=== PATIENT | female | born 1950 | race Caucasian/White ===

== ENCOUNTER 2016-07-27 17:19 | Inpatient (IN) | payer OTHER ==
[~2016-07-27] VITALS: Ht 157.4 cm; Wt 69.1 kg
--- NOTE | ~2016-07-27 | ST ---
[place], [place] EXERCISE STRESS TEST REPORT NAME: DANO RODARTE [facility] #: [id number] UNIT #: [id number] ROOM: 416 DOCTOR: GATO MORA MD BIRTHDATE: [birth year] DOS: 07/28/2016 PHARMACOLOGIC STRESS TEST Study was done and is being dictated on 07/28/2016. INDICATIONS: Chest pain. PROCEDURE: The patient was given a rapid infusion of regadenoson 0.4 mg intravenously followed by a saline flush. She developed dyspnea, nausea, and headache with the infusion. Her resting heart rate of 71 sherry to 106. The resting blood pressure of 148/80 fell to 136/68. Her electrocardiogram showed sinus rhythm with nonspecific T-wave flattening. With the infusion, she had a normal tachycardic response. No diagnostic ST or T-wave changes occurred. Forty seconds after the infusion of regadenoson, she was given radionuclide intravenously. The patient had significant symptoms with the infusion of regadenoson and therefore was given aminophylline 75 mg intravenously to help relieve her symptoms with good effect. IMPRESSION: 1. Well tolerated infusion of regadenoson. 2. Radionuclide administered. Please see the separate imaging report for details of the patient's stress test results. GATO MORA MD CM:STRESS:EXERCISE STRESS TEST REPORT 1102 0011 GATO MORA MD
[~2016-07-27 17:19] MED LIST: ALBUTEROL0.09 MG/A2 IH; ASPIRIN ADULT L81 M1 PO; ATIVAN0.5 MG PO; ATIVAN1 MG PO; B121000 MCG/1 IM; BACTRIM DS 8001 TA1 PO; BACTRIM DS 8001 TAB PO; BISOPROLOL10 MG PO; CILOXAN 10 ML10 ML OP; DITROPAN XL15 M1 PO; FAMILY PHARMAC0.4 MG PO; FENOFIBRATE MI134 MG PO; FOLIC ACID1 MG PO; GLIPIZIDE5 MG PO; HYDR25T PO; HYDROXYZINE PAM50 MG PO; IMDUR SA60 M1 PO; LANSOPRAZOLE30 MG PO; LEVOTHYROXIN0.075 MG PO; MEDROL DOSEPAK4 MG PO; NAPROSYN500 MG PO; NITROSTAT0.4 MG SL; NORVASC10 MG PO; OYSTER SHELL C500 M2 PO; OYSTER SHELL CA1 GRA; PAROXETINE HCL40 MG PO; PERCOCET 325 MG1 TA1 PO; PERCOCET 325 MG1 TA2 PO; POTASSIUM CHLO20 ME3 PO; PREDNISONE10 MG PO; PROTONIX40 MG PO; SIMVASTATIN10 MG PO; VICODIN ES 7501 TA1 PO; VITAMIN D2400 IU PO; ZANTAC PO; ZESTRIL40 MG PO
[2016-07-27 17:33] VITALS: BP 198/102
[2016-07-27 18:12] LABS: BASO # 0.1 10*3/uL (0.0-0.1); BASO % 0.7 % (0.0-1.0); EOS # 0.1 10*3/uL (0.0-0.4); EOS % 1.6 % (1.0-4.0); HEMATOCRIT 46.1 % (37.0-47.0); HEMOGLOBIN 14.3 g/dl (12.0-16.0); LYMPH # 3.3 10*3/uL (1.3-4.4); LYMPH % 47.8 % (27.0-41.0); MEAN CELL VOLUME 88.1 fl (81.0-99.0); MEAN CORPUSCULAR HGB 27.3 pg (27.0-31.0); MEAN PLATELET VOLUME 10.5 fl (9.6-12.3); MONO # 0.6 10*3/uL (0.1-1.0); MONO % 8.9 % (3.0-9.0); NEUT # 2.8 10*3/uL (2.3-7.9); NEUT % 40.7 % (47.0-73.0); PLATELET COUNT AUTOMATED 310 10*3/uL (130-400); RED BLOOD COUNT 5.23 10*6/uL (4.10-5.10); RED CELL DISTRI WIDTH 13.6 % (0-14.5); WHITE BLOOD COUNT 6.8 10*3/uL (4.8-10.8)
[2016-07-27 18:32] LABS: BUN 8 mg/dl (7-24); CARBON DIOXIDE 27 mmol/L (21-32); CHLORIDE 106 mmol/L (98-107); EST GLOM FILT AFRICAN AMERICAN > 60 ml/min; GLUCOSE 138 mg/dL (65-99); POTASSIUM 3.3 mmol/L (3.5-5.1); SODIUM 143 mmol/L (136-145)
[2016-07-27 18:33] LABS: TROPONIN I < 0.015 ng/ml (<0.5)
[2016-07-27] MEDS ORDERED: LOPID600 M1 PO (18:54)
[2016-07-27] MEDS ORDERED: HYDROCHLOROTHIA25 M1 PO (18:55)
[2016-07-27 18:56] VITALS: BP 173/103
[2016-07-27 19:28] VITALS: BP 160/98
[2016-07-27 20:23] VITALS: BP 153/95
[2016-07-27 21:00] VITALS: BP 142/96
[2016-07-27] MEDS ORDERED: BUSPIRONE10 MG PO (21:04)
[2016-07-27] MEDS ORDERED: PROAIR HFA8.5 GM INH (21:07)
[2016-07-28] VITALS: BP 146/90
[2016-07-28 06:22] LABS: BASO # 0.1 10*3/uL (0.0-0.1); BASO % 0.6 % (0.0-1.0); EOS # 0.2 10*3/uL (0.0-0.4); HEMATOCRIT 44.9 % (37.0-47.0); HEMOGLOBIN 13.6 g/dl (12.0-16.0); LYMPH % 50.4 % (27.0-41.0); MEAN CELL VOLUME 88.6 fl (81.0-99.0); MEAN CORPUSCULAR HGB 26.8 pg (27.0-31.0); MEAN CORPUSCULAR HGB CONC 30.3 g/dl (33.0-37.0); MEAN PLATELET VOLUME 10.8 fl (9.6-12.3); MONO # 0.7 10*3/uL (0.1-1.0); MONO % 8.4 % (3.0-9.0); NEUT # 3.1 10*3/uL (2.3-7.9); NEUT % 38.3 % (47.0-73.0); PLATELET COUNT AUTOMATED 283 10*3/uL (130-400); RED BLOOD COUNT 5.07 10*6/uL (4.10-5.10); RED CELL DISTRI WIDTH 13.7 % (0-14.5)
[2016-07-28 07:03] LABS: INTERNATIONAL NORM RATIO 0.9 (2.0-3.5); PROTHROMBIN TIME 9.8 SECONDS (9.0-12.4)
[2016-07-28 07:08] LABS: ALBUMIN 3.1 gm/dl (3.1-4.5); ALKALINE PHOSPHATASE 91 U/L (45-117); BILIRUBIN, TOTAL 0.2 mg/dl (0.2-1.0); BUN 8 mg/dl (7-24); CARBON DIOXIDE 29 mmol/L (21-32); CHLORIDE 110 mmol/L (98-107); CHOLESTEROL 220 mg/dL (<200); EST GLOM FILT AFRICAN AMERICAN > 60 ml/min; FREE T4 1.15 ng/dl (0.76-1.46); GLUCOSE 120 mg/dL (65-99); HDL CHOLESTEROL 29 mg/dl (40-60); LDL CHOLESTEROL 119 mg/dL (9-159); MAGNESIUM 1.9 mg/dL (1.5-2.1); POTASSIUM 3.9 mmol/L (3.5-5.1); SGOT/AST 12 IU/L (3-35); SGPT/ALT 13 U/L (12-78); SODIUM 147 mmol/L (136-145); THYROID STIM HORMONE (HS) 0.214 uIU/ml (0.358-4.75); TOTAL PROTEIN 7.2 gm/dL (6.4-8.2); TRIGLYCERIDES 362 mg/dl (<150); VLDL CHOLESTEROL 72 mg/dL (6-40)
[2016-07-28 07:32] LABS: FOLIC ACID > 24.00 ng/mL (>5.38)
[2016-07-28 07:59] LABS: BILIRUBIN NEGATIVE (NEGATIVE); BLOOD NEGATIVE (NEGATIVE); CLARITY SL CLOUDY (CLEAR); COLOR YELLOW (YELLOW); GLUCOSE NEGATIVE (NEGATIVE); KETONE NEGATIVE (NEGATIVE); LEUKO ESTERASE TRACE (NEGATIVE); NITRITE NEGATIVE (NEGATIVE); PROTEIN NEGATIVE (NEGATIVE); UROBILINOGEN 0.2 E.U./dl (0.2-1.0)
[2016-07-28 08:00] VITALS: BP 180/98
[2016-07-28 08:59] LABS: WBC 31-40 wbc/hpf (0-5)
[2016-07-28 09:00] LABS: BACTERIA 2+; YEAST 1+
[2016-07-28 09:10] VITALS: BP 150/74
[2016-07-28] MEDS ORDERED: ATORVASTATIN CA40 M1 PO (14:56)
[2016-07-28] MEDS ORDERED: BISOPROLOL FM5 MG PO (14:56)
[2016-07-28] MEDS ORDERED: GABAPENTIN100 M2 PO (14:56)
[2016-07-28] MEDS ORDERED: HYDROCHLOROTHIA25 M1 PO (14:56)
[2016-07-28 16:00] VITALS: BP 159/70
[2016-08-02] MEDS ORDERED: IMDUR SA30 MG PO (18:52)
[2016-08-02] MEDS ORDERED: NITROSTAT0.4 MG SL (18:53)
[2016-08-02] MEDS ORDERED: METOPROLOL SUCC25 M2 PO (18:53)
[2016-08-02] MEDS ORDERED: ZANTAC 7575 M1 PO (18:54)
[2016-08-05] MEDS ORDERED: TOPROL XL50 M1 PO (09:59)
[2016-08-05] MEDS ORDERED: NORVASC10 MG PO (09:59)
[2016-08-05] MEDS ORDERED: FLAGYL500 MG PO (10:04)
[2016-08-05] MEDS ORDERED: CIPRO500 MG PO (10:04)
[2016-08-05] MEDS ORDERED: NORCO 5-325 TA1 EACH PO (10:07)
[2016-08-05] MEDS ORDERED: Zofran4 MG PO (10:07)
[2016-09-07] MEDS ORDERED: ZANTAC 150150 MG PO (15:12)
[2016-09-12] MEDS ORDERED: BACTRIM DS 8001 TA1 PO (10:48)
[2016-09-12] MEDS ORDERED: D-1000 185 MG-11 TAB PO (10:48)
[2016-09-12] MEDS ORDERED: Zofran4 MG PO (10:48)
[2016-09-12] MEDS ORDERED: TRAMADOL HCL50 MG PO (11:46)
[2016-09-12] MEDS ORDERED: VISTARIL25 M2 PO (11:46)
== END 2016-07-28 16:29 | disposition home or self-care (01) | DRG 392 ==
LOC: ED 17:19 → EDHOLD 18:56 → 4E 18:56
PROVIDERS: Emergency Medicine; Student in an Organized Health Care Education/Training Program
DX: K21.9 Gastro-esophageal reflux disease without esophagitis (principal); I67.4 Hypertensive encephalopathy; R65.10 Systemic inflammatory response syndrome (SIRS) of non-infectious origin without acute organ dysfunction; E11.40 Type 2 diabetes mellitus with diabetic neuropathy, unspecified; J44.9 Chronic obstructive pulmonary disease, unspecified; I16.1 Hypertensive emergency; F41.9 Anxiety disorder, unspecified; G89.29 Other chronic pain; E11.65 Type 2 diabetes mellitus with hyperglycemia; E89.0 Postprocedural hypothyroidism; I10 Essential (primary) hypertension; E87.6 Hypokalemia; E78.5 Hyperlipidemia, unspecified; F32.9 Major depressive disorder, single episode, unspecified; G47.33 Obstructive sleep apnea (adult) (pediatric); Z87.440 Personal history of urinary (tract) infections; Z90.49 Acquired absence of other specified parts of digestive tract; Z90.710 Acquired absence of both cervix and uterus; Z82.49 Family history of ischemic heart disease and other diseases of the circulatory system; Z88.1 Allergy status to other antibiotic agents; Z79.899 Other long term (current) drug therapy

== ENCOUNTER 2016-07-30 14:19 | Inpatient (IN) | payer OTHER ==
[2016-07-30] VITALS (7 sets, daily range): BP systolic 143–190; BP diastolic 80–110
[~2016-07-30] VITALS: Ht 157.4 cm; Wt 69.1 kg
--- NOTE | ~2016-07-30 | CON ---
[place], [place] REPORT OF CONSULTATION NAME: DANO RODARTE [facility] #: [id number] UNIT #: [id number] ROOM: 402 DOCTOR: ALYSON GARZON MD BIRTHDATE: [birth year] DOS: 07/31/2016 CARDIOLOGY CONSULT CONSULTING PHYSICIAN: Dr. Bradford. REASON FOR CONSULTATION: Chest pain. CLINICAL HISTORY: The patient is a 66-year-old patient with history of hypertension, diabetes, dyslipidemia, came to the Emergency Room with chest pain. Evidently, she was discharged a few days ago from the hospital after she was admitted with chest pain. The patient underwent a stress test which was unremarkable and she complained of intermittent chest pains, midsternal area. Yesterday, her blood pressure was high at home and having some occasional dizziness and headache. She complained of some intermittent chest tightness in the left side of the chest and radiated towards the midsternal area, mild to moderate in severity. The patient also had some blurred vision, headache and also some left arm weakness briefly. Her chest pain was more or less constant and she came to the Emergency Room and it was gradually resolved in the Emergency Room after she was treated in the Emergency Room. She is compliant with her medications as prescribed. Denies any shortness of breath, palpitations. No PND, no orthopnea. No edema. She does smoke about a pack a day of cigarettes. She again had chest pain in the midsternal area. She has 1 episode at rest and also 1 episode with activity. REVIEW OF SYSTEMS: Review of the 8-system negative except as mentioned above. REVIEW OF SYSTEMS: Positive for recurrent lower abdominal pain, but no nausea, no diarrhea. This is a chronic complaint. No fever and chills. No nausea, vomiting. No syncopal attacks. No diarrhea or constipation. PAST MEDICAL HISTORY: 1. Hypertension. 2. Diabetes type 2. 3. Obesity. 4. Acid reflux. 5. Obstructive sleep apnea, on home oxygen. 6. Chronic pain, mostly lower abdominal pain. 7. COPD. 8. Degenerative disease of the lumbar spine. 9. Depression. 10. Diverticulosis. 11. Anxiety. 12. Hypothyroidism. 13. Dyslipidemia. PAST SURGICAL HISTORY: History of cholecystectomy, hernia repair, hysterectomy, dissection of the large bowel, thyroidectomy, and appendicectomy. SOCIAL HISTORY: The patient does not drink or use illicit drugs, does smoke [place], [place] REPORT OF CONSULTATION NAME: DANO RODARTE UNIT #: [id number] ROOM: 402 DOCTOR: ALYSON GARZON MD BIRTHDATE: [birth year] about a pack a day. ALLERGIES: The patient is allergic to TRAZODONE and NAPROXEN. FAMILY HISTORY: Mother from unknown causes, had history of hypertension, diabetes. Father , cause myocardial infarction. HOME MEDICATIONS: Reviewed. PHYSICAL EXAMINATION: VITAL SIGNS: Blood pressure 150/70, pulse 72, respiratory rate 16. Weight 69.1 kilos, BMI 27.9. GENERAL: Alert, comfortable, in no acute distress. Denies any chest pain. She is complaining of some occasional lower abdominal pain. HEAD AND NECK: Pupils are round and equal. No jaundice. Tongue was moist and pharynx was clear. NECK: Supple, no distended neck veins, no carotid bruit. CHEST: Chest wall symmetrical. Mild tenderness in the upper sternal area. No palpable thrills. Grade 1/6 soft systolic murmur. LUNGS: Few scattered rhonchi, but no rales. Good air entry bilaterally. ABDOMEN: Benign. Mild deep tenderness in the lower abdominal area. Bowel sounds positive. No palpable masses. No pulsatile abdominal aorta. EXTREMITIES: Showed trace edema. Distal pulses are palpable. SKIN: Warm and dry. No cyanosis, no clubbing. NEUROLOGIC: The patient is alert, oriented. No focal neurologic deficit. RECTAL: Deferred. GENITOURINARY: Deferred. MUSCULOSKELETAL: No joint tenderness or swelling. PSYCHIATRIC: The patient is alert with good mood and affect. REVIEW OF THE DIAGNOSTIC TESTS: EKG showed sinus rhythm with anteroseptal Q-waves. Cardiac enzymes unremarkable. CBC, chemistry reviewed. IMPRESSION: 1. Chest pain, myocardial infarction ruled out. 2. Accelerated hypertension, currently stable. 3. Tobacco smoking. 4. Dyslipidemia. 5. Diabetes type 2. 6. Obstructive sleep apnea. 7. Chronic abdominal pain. RECOMMENDATIONS: 1. Continue current medications and monitor her heart rate and blood pressure. 2. Give her aspirin 325 mg once daily. 3. Due to her recurrent chest pains and multiple coronary disease risk factors, I would recommend cardiac catheterization. She had a nonischemic stress test recently. 4. Risks and complications of the cardiac catheterization, angioplasty, stent and possible bypass surgery were discussed and all questions were answered and [place], [place] REPORT OF CONSULTATION [facility]: [facility] [id number] UNIT #: [id number] ROOM: 402 DOCTOR: DURAN GIANG,ALYSON BIRTHDATE: [birth year] she is agreeable to proceed with cardiac catheterization. 5. Aggressive risk factor modification for diet, exercise, and weight loss as well as to quit smoking discussed. 6. Further recommendations based on her cardiac catheterization, especially discuss with her family physician regarding her chronic abdominal pain management. Thank you, Dr. Bradford for asking us to evaluate this patient and we will follow the case along with you. ALYSON GARZON MD CM:CONSTR:REPORT OF CONSULTATION 2319 08/01/16 0830 interface
[~2016-07-30 14:19] MED LIST changes: +ATORVASTATIN CA40 M1 PO; +BISOPROLOL FM5 MG PO; +BUSPIRONE10 MG PO; +GABAPENTIN100 M2 PO; +HYDROCHLOROTHIA25 M1 PO; +LOPID600 M1 PO; +PROAIR HFA8.5 GM INH
[2016-07-30 14:54] LABS: BASO # 0.1 10*3/uL (0.0-0.1); BASO % 0.7 % (0.0-1.0); EOS # 0.2 10*3/uL (0.0-0.4); EOS % 2.1 % (1.0-4.0); HEMATOCRIT 48.2 % (37.0-47.0); HEMOGLOBIN 15.1 g/dl (12.0-16.0); LYMPH # 4.4 10*3/uL (1.3-4.4); MEAN CORPUSCULAR HGB 27.6 pg (27.0-31.0); MEAN CORPUSCULAR HGB CONC 31.3 g/dl (33.0-37.0); MEAN PLATELET VOLUME 10.6 fl (9.6-12.3); MONO # 0.7 10*3/uL (0.1-1.0); MONO % 7.5 % (3.0-9.0); NEUT # 3.6 10*3/uL (2.3-7.9); NEUT % 40.5 % (47.0-73.0); PLATELET COUNT AUTOMATED 346 10*3/uL (130-400); RED BLOOD COUNT 5.48 10*6/uL (4.10-5.10); RED CELL DISTRI WIDTH 13.4 % (0-14.5); WHITE BLOOD COUNT 8.9 10*3/uL (4.8-10.8)
[2016-07-30 15:11] LABS: ALBUMIN 3.8 gm/dl (3.1-4.5); ALKALINE PHOSPHATASE 81 U/L (45-117); BILIRUBIN, TOTAL 0.5 mg/dl (0.2-1.0); BUN 12 mg/dl (7-24); CARBON DIOXIDE 25 mmol/L (21-32); CHLORIDE 104 mmol/L (98-107); EST GLOM FILT AFRICAN AMERICAN > 60 ml/min; GLUCOSE 145 mg/dL (65-99); MAGNESIUM 1.9 mg/dL (1.5-2.1); POTASSIUM 3.2 mmol/L (3.5-5.1); SGOT/AST 18 IU/L (3-35); SGPT/ALT 14 U/L (12-78); SODIUM 142 mmol/L (136-145); TOTAL PROTEIN 8.6 gm/dL (6.4-8.2)
[2016-07-30 15:12] LABS: TROPONIN I < 0.015 ng/ml (<0.5)
[2016-07-30 18:51] LABS: CKMB 1.2 ng/ml (0.5-3.6); CPK 98 U/L (26-192)
[2016-07-30 18:53] LABS: TROPONIN I < 0.015 ng/ml (<0.5)
[2016-07-31] VITALS: BP 152/78
[2016-07-31 00:45] LABS: CKMB 1.4 ng/ml (0.5-3.6); CPK 113 U/L (26-192); TROPONIN I < 0.015 ng/ml (<0.5)
[2016-07-31 06:23] LABS: CKMB 1.8 ng/ml (0.5-3.6)
[2016-07-31 06:24] LABS: ALBUMIN 3.1 gm/dl (3.1-4.5); ALKALINE PHOSPHATASE 76 U/L (45-117); BILIRUBIN, TOTAL 0.2 mg/dl (0.2-1.0); BUN 13 mg/dl (7-24); CARBON DIOXIDE 26 mmol/L (21-32); CHLORIDE 106 mmol/L (98-107); CPK 76 U/L (26-192); EST GLOM FILT AFRICAN AMERICAN > 60 ml/min; GLUCOSE 116 mg/dL (65-99); MAGNESIUM 1.9 mg/dL (1.5-2.1); PHOSPHOROUS 4.1 mg/dL (2.5-4.9); SGOT/AST 15 IU/L (3-35); SGPT/ALT 13 U/L (12-78); SODIUM 143 mmol/L (136-145); TOTAL PROTEIN 6.7 gm/dL (6.4-8.2); TROPONIN I < 0.015 ng/ml (<0.5)
[2016-07-31 06:30] LABS: BASO # 0.1 10*3/uL (0.0-0.1); BASO % 0.8 % (0.0-1.0); EOS # 0.2 10*3/uL (0.0-0.4); EOS % 2.3 % (1.0-4.0); HEMATOCRIT 42.6 % (37.0-47.0); LYMPH # 4.7 10*3/uL (1.3-4.4); LYMPH % 56.6 % (27.0-41.0); MEAN CELL VOLUME 89.1 fl (81.0-99.0); MEAN CORPUSCULAR HGB 27.4 pg (27.0-31.0); MEAN CORPUSCULAR HGB CONC 30.8 g/dl (33.0-37.0); MEAN PLATELET VOLUME 10.7 fl (9.6-12.3); MONO # 0.7 10*3/uL (0.1-1.0); MONO % 8.7 % (3.0-9.0); NEUT # 2.6 10*3/uL (2.3-7.9); NEUT % 31.4 % (47.0-73.0); PLATELET COUNT AUTOMATED 311 10*3/uL (130-400); RED BLOOD COUNT 4.78 10*6/uL (4.10-5.10); RED CELL DISTRI WIDTH 13.4 % (0-14.5); WHITE BLOOD COUNT 8.3 10*3/uL (4.8-10.8)
[2016-07-31 06:38] LABS: HEMOGLOBIN 13.1 g/dl (12.0-16.0)
[2016-07-31 08:00] VITALS: BP 150/78
[2016-07-31] MEDS ORDERED: ASPIR-TRIN325 MG PO (11:45)
[2016-07-31 12:00] VITALS: BP 158/90; BP 160/88
[2016-07-31 16:00] VITALS: BP 174/93
[2016-08-02] MEDS ORDERED: IMDUR SA30 MG PO (18:52)
[2016-08-02] MEDS ORDERED: NITROSTAT0.4 MG SL (18:53)
[2016-08-02] MEDS ORDERED: METOPROLOL SUCC25 M2 PO (18:53)
[2016-08-02] MEDS ORDERED: ZANTAC 7575 M1 PO (18:54)
[2016-08-05] MEDS ORDERED: NORVASC10 MG PO (09:59)
[2016-08-05] MEDS ORDERED: TOPROL XL50 M1 PO (09:59)
[2016-08-05] MEDS ORDERED: FLAGYL500 MG PO (10:04)
[2016-08-05] MEDS ORDERED: CIPRO500 MG PO (10:04)
[2016-08-05] MEDS ORDERED: NORCO 5-325 TA1 EACH PO (10:07)
[2016-08-05] MEDS ORDERED: Zofran4 MG PO (10:07)
[2016-09-07] MEDS ORDERED: ZANTAC 150150 MG PO (15:12)
[2016-09-12] MEDS ORDERED: BACTRIM DS 8001 TA1 PO (10:48)
[2016-09-12] MEDS ORDERED: D-1000 185 MG-11 TAB PO (10:48)
[2016-09-12] MEDS ORDERED: Zofran4 MG PO (10:48)
[2016-09-12] MEDS ORDERED: TRAMADOL HCL50 MG PO (11:46)
[2016-09-12] MEDS ORDERED: VISTARIL25 M2 PO (11:46)
== END 2016-07-31 18:25 | disposition short-term general hospital (02) | DRG 391 ==
LOC: ED 14:19 → 4E 15:25 → EDHOLD 15:25 → 4E 15:46
PROVIDERS: Internal Medicine; Student in an Organized Health Care Education/Training Program
DX: K21.9 Gastro-esophageal reflux disease without esophagitis (principal); E43 Unspecified severe protein-calorie malnutrition; I16.1 Hypertensive emergency; E11.65 Type 2 diabetes mellitus with hyperglycemia; J44.9 Chronic obstructive pulmonary disease, unspecified; E87.6 Hypokalemia; F17.200 Nicotine dependence, unspecified, uncomplicated; G47.33 Obstructive sleep apnea (adult) (pediatric); F41.9 Anxiety disorder, unspecified; E66.9 Obesity, unspecified; E03.9 Hypothyroidism, unspecified; M47.816 Spondylosis without myelopathy or radiculopathy, lumbar region; G89.29 Other chronic pain; E78.5 Hyperlipidemia, unspecified; Z82.49 Family history of ischemic heart disease and other diseases of the circulatory system; Z90.49 Acquired absence of other specified parts of digestive tract; Z90.710 Acquired absence of both cervix and uterus; Z98.890 Other specified postprocedural states; Z88.8 Allergy status to other drugs, medicaments and biological substances; Z79.899 Other long term (current) drug therapy; Z68.28 Body mass index [BMI] 28.0-28.9, adult

== ENCOUNTER 2017-05-25 06:25 | Inpatient (IN) | payer OTHER ==
[~2017-05-25] VITALS: Ht 157.4 cm; Wt 68.2 kg
[~2017-05-25 06:25] MED LIST changes: +ASPIR-TRIN325 MG PO; +CIPRO500 MG PO; +D-1000 185 MG-11 TAB PO; +FLAGYL500 MG PO; +IMDUR SA30 MG PO; +METOPROLOL SUCC25 M2 PO; +NORCO 5-325 TA1 EACH PO; +TOPROL XL50 M1 PO; +TRAMADOL HCL50 MG PO; +VISTARIL25 M2 PO; +ZANTAC 150150 MG PO; +ZANTAC 7575 M1 PO; +Zofran4 MG PO
[2017-05-25 06:33] VITALS: BP 140/89
--- NOTE | 2017-05-25 07:09 | NUR ---
PT HAD SMALL BOWEL MOVEMENT WHILE ON BEDPAN. PT IS STRAINING TO DEFECATE. PT APPEARS TO HAVE FECAL IMPACTION
--- NOTE | 2017-05-25 07:20 | NUR ---
PT GAVE EMS ENVELOPE OF NALTREXONE. WHEN ASKED WHERE PT GOT PILLS THAT ARE NOT PRESCRIBED TO HER, PT STATES " I FOUND THEM SOMEHWERE". MEDICATION DISPOSED OF IN SHARPS CONTAINER. WITNESSED BY ROBBIN KAUR RN
--- NOTE | 2017-05-25 07:26 | NUR ---
PT RIPPED OUT FIRST IV THAT WAS PLACED BY EMS IN LEFT WRIST
--- NOTE | 2017-05-25 07:27 | NUR ---
PT REPORT ACCEPTED. ALTHOUGH PT IS ALERT AND ORIENTED, SHE IS VERY RESTLESS, ROLLING BACK AND FORTH IN BED, SITTING UP THEN LAYING BACK, MOANING AND CRYING. STATES THAT SHE IS IN CONSTANT BODY PAIN. DR BROOKS. NEW ORDER RECEIVED FOR COGENTIN IV. PT HAS PROVIDED URINE SPECIMEN. NO OTHER COMPLAINTS.
[2017-05-25 07:35] LABS: BASO # 0.1 10*3/uL (0.0-0.1); BASO % 0.4 % (0.0-1.0); EOS # 0.1 10*3/uL (0.0-0.4); EOS % 0.6 % (1.0-4.0); HEMATOCRIT 46.9 % (37.0-47.0); LYMPH # 2.9 10*3/uL (1.3-4.4); LYMPH % 15.4 % (27.0-41.0); MEAN CORPUSCULAR HGB 28.5 pg (27.0-31.0); MEAN PLATELET VOLUME 10.1 fl (9.6-12.3); MONO % 5.5 % (3.0-9.0); NEUT # 14.4 10*3/uL (2.3-7.9); NEUT % 77.6 % (47.0-73.0); PLATELET COUNT AUTOMATED 309 10*3/uL (130-400); RED BLOOD COUNT 5.27 10*6/uL (4.10-5.10); RED CELL DISTRI WIDTH 13.8 % (0-14.5); WHITE BLOOD COUNT 18.5 10*3/uL (4.8-10.8)
[2017-05-25 07:50] VITALS: BP 136/84
[2017-05-25 07:52] LABS: ALBUMIN 3.7 gm/dl (3.1-4.5); ALKALINE PHOSPHATASE 112 U/L (45-117); BUN 18 mg/dl (7-24); CHLORIDE 98 mmol/L (98-107); CREATININE 0.69 mg/dL (0.55-1.02); POTASSIUM 2.9 mmol/L (3.5-5.1); SGOT/AST 17 IU/L (3-35); SGPT/ALT 23 U/L (12-78); SODIUM 137 mmol/L (136-145); TOTAL PROTEIN 8.5 gm/dL (6.4-8.2)
[2017-05-25 07:55] LABS: BILIRUBIN NEGATIVE (NEGATIVE); BLOOD 1+ (NEGATIVE); CLARITY CLEAR (CLEAR); COLOR YELLOW (YELLOW); GLUCOSE NEGATIVE (NEGATIVE); KETONE NEGATIVE (NEGATIVE); LEUKO ESTERASE NEGATIVE (NEGATIVE); NITRITE NEGATIVE (NEGATIVE); PH 5.5 (5.0-9.0); SPECIFIC GRAVITY <= 1.005 (1.005-1.030); UROBILINOGEN 0.2 E.U./dl (0.2-1.0)
[2017-05-25 08:12] LABS: ETHYL ALCOHOL < 3.0 mg/dl (<3)
[2017-05-25 08:13] LABS: THYROID STIM HORMONE (HS) 0.998 uIU/ml (0.358-4.75)
[2017-05-25 08:14] LABS: URINE AMPHETAMINES < 1000 (1000ng/ml); URINE BARBITURATES < 200 (200ng/ml); URINE BENZODIAZEPINES < 200 (200ng/ml); URINE CANNABINOIDS (THC) < 50 (50ng/ml); URINE COCAINE < 300 (300ng/ml); URINE METHADONE < 300 (300ng/ml); URINE OPIATES < 300 (300ng/ml); URINE PHENCYCLIDINE < 25 (25ng/ml)
[2017-05-25 08:19] LABS: WBC 0-2 wbc/hpf (0-5)
--- NOTE | 2017-05-25 09:20 | NUR ---
NO CHANGE IN PT CONDITION OR COMPLAINT AFTER MEDICATION DOSING. PT CONTINUES TO REPORT SEVERE GENERALIZED PAIN, INTERMITTENT NAUSEA, HOLDING ABDOMEN AND MOANING, ROLLING SIDE TO SIDE, VERY RESTLESS. DR BROOKS.
[2017-05-25 09:32] LABS: ACT PARTIAL THROMBO TIME 29.3 SECONDS (20.8-31.5); INTERNATIONAL NORM RATIO 0.9 (2.0-3.5)
[2017-05-25 09:50] VITALS: BP 135/76
[2017-05-25] MEDS ORDERED: OMEPRAZOLE D/R20 MG PO (10:21)
[2017-05-25] MEDS ORDERED: ISOSORBIDE MON120 MG PO (10:23)
[2017-05-25] MEDS ORDERED: FOSAMAX PLUS D1 EACH PO (10:23)
[2017-05-25] MEDS ORDERED: CYMBALTA60 MG PO (10:24)
[2017-05-25 12:00] VITALS: BP 129/74; BP 135/76
[2017-05-25 16:00] VITALS: BP 150/73
--- NOTE | 2017-05-25 16:33 | NUR ---
Pt is moving constantly around bed. Pulling off CM. I reapplied it twice. Pt states she is moving so much due to pain all over her body and inside her body. I medicated pt with dilaudid per prn order for pt complaints of pain. States pain is 10/10.
[2017-05-25 20:00] VITALS: BP 131/84
--- NOTE | 2017-05-25 21:46 | NUR ---
PATIENT MEDICATED WITH NORCO PER PRN ORDER FOR C/O ABDOMINAL PAIN . RATED PAIN A 9/10 WITH 10 BEING THE WORST. SEE EMAR. REINFORCED USE OF CALL LIGHT.
--- NOTE | 2017-05-25 23:37 | NUR ---
PATIENT MEDICATED SLOWLY WITH DILAUDID 1 MG IV PER PRN ORDER FOR C/O ABDOMINAL PAIN. RATED PAIN A 10/10 WITH 10 BEING THE WORST. SEE EMAR. REINFORCED USE OF CALL LIGHT.
[2017-05-26] VITALS: BP 142/60
--- NOTE | 2017-05-26 02:00 | NUR ---
PATIENT MEDICATED WITH NORCO PER PRN ORDER AND PATIENT REQUEST FOR C/O ABDOMINAL AND BACK PAIN. RATED PAIN A 10/10 WITH 10 BEING THE WORST. SEE EMAR. DILAUDID GIVEN EARLIER EASED THE PAIN A LITTLE. SHE STATED THE MEDICATION WORE OFF TOO QUICKLY.
[2017-05-26 06:17] LABS: BASO % 0.1 % (0.0-1.0); EOS % 0.2 % (1.0-4.0); HEMATOCRIT 42.7 % (37.0-47.0); HEMOGLOBIN 14.1 g/dl (12.0-16.0); LYMPH # 3.9 10*3/uL (1.3-4.4); LYMPH % 26.1 % (27.0-41.0); MEAN CELL VOLUME 86.8 fl (81.0-99.0); MEAN CORPUSCULAR HGB 28.7 pg (27.0-31.0); MONO % 6.6 % (3.0-9.0); NEUT # 9.8 10*3/uL (2.3-7.9); NEUT % 66.5 % (47.0-73.0); PLATELET COUNT AUTOMATED 285 10*3/uL (130-400); RED BLOOD COUNT 4.92 10*6/uL (4.10-5.10); RED CELL DISTRI WIDTH 13.9 % (0-14.5); WHITE BLOOD COUNT 14.8 10*3/uL (4.8-10.8)
[2017-05-26 06:55] LABS: BUN 9 mg/dl (7-24); CHLORIDE 99 mmol/L (98-107); CHOLESTEROL 254 mg/dL (<200); HDL CHOLESTEROL 30 mg/dl (40-60); LDL CHOLESTEROL 168 mg/dL (9-159); POTASSIUM 2.6 mmol/L (3.5-5.1); SODIUM 140 mmol/L (136-145); TRIGLYCERIDES 282 mg/dl (<150); VLDL CHOLESTEROL 56 mg/dL (6-40)
[2017-05-26 07:00] LABS: THYROID STIM HORMONE (HS) 0.221 uIU/ml (0.358-4.75)
[2017-05-26 07:02] LABS: ACT PARTIAL THROMBO TIME 27.3 SECONDS (20.8-31.5)
--- NOTE | 2017-05-26 07:48 | NUR ---
PT STATES DILAUDID HAS "WORN OFF" RATES PAIN / "ALL OVER" NORCO GIVEN. SEE MAR
[2017-05-26 08:00] VITALS: BP 131/76
[2017-05-26 08:29] LABS: VITAMIN D, 25-HYDROXY 28.8 ng/mL (30-100)
--- NOTE | 2017-05-26 08:40 | NUR ---
PT STATES NORCO SLIGHTLY EFFECTIVE.
--- NOTE | 2017-05-26 11:02 | NUR ---
PT COMPLAINED OF KRUN HURTING HER ARM, SLOWED DOWN THE RATE AND GAVE THE PATIENT ICE - THAT DID NOT HELP. SHE REQUESTED FOR KRUN TO BE STOPPED. WILL NOTIFY PHYSICIAN
[2017-05-26 12:00] VITALS: BP 128/73
--- NOTE | 2017-05-26 12:00 | NUR ---
PT STATES THAT THE HOSPITAL SHEETS ARE IRRITATING SKIN, KNEES ARE REDDENED, NO BLISTERS OR RAISED AREAS NOTED. WILL CONTINUE TO MONITOR
--- NOTE | 2017-05-26 12:28 | NUR ---
PT COMPLAINS OF ALL OVER PAIN, 03/18. NORCO GIVEN
--- NOTE | 2017-05-26 13:29 | NUR ---
PT STATES PAIN STILL 03/18 "ALL OVER". DILAUDID GIVEN, SEE MAR
--- NOTE | 2017-05-26 14:30 | NUR ---
DILAUDID SOMEWHAT EFFECTIVE FOR PAIN
[2017-05-26 16:00] VITALS: BP 107/58
--- NOTE | 2017-05-26 16:36 | NUR ---
PT STATES ALL OVER PAIN 03/18. NORCO GIVEN. SEE MAR
--- NOTE | 2017-05-26 17:30 | NUR ---
PAIN MEDICATION "SOMEWHAT EFFECTIVE FOR PAIN" NOW RATES PAIN 7
[2017-05-26] MEDS ORDERED: BUSPIRONE10 MG PO (17:43)
[2017-05-26] MEDS ORDERED: HYDROXYZINE HCL25 M1 PO (17:44)
[2017-05-26] MEDS ORDERED: PROAIR HFA8.5 GM INH (17:45)
--- NOTE | 2017-05-26 17:49 | NUR ---
NOTIFIED DR. SHANKS THAT PATIENT TAKES A FEW HOME MEDICAIONS THAT I ADDED TO HER HOME MED LIST AFTER HER SON BROUGHT IN HER MEDICAION BOTTLES. AND NOTIFIED THEM THAT SHE IS HAVING A RASH ON HER KNEES THAT IS NOW SLIGHTLY RAISED.
--- NOTE | 2017-05-26 19:50 | NUR ---
PT C/O GENERAL DISCOMFORT 02/15. PT ADVISED THAT IT IS TOO EARLY FOR PAIN MED. PT STATES THAT SHE IS AWARE. ALSO C/O MILD NAUSEA, NO VOMITING. ABD SOFT/TENDER/ND. BS X4 NORMO. DENIES ANY FURTHER NAUSEA. CALL LIGHT IN REACH.
[2017-05-26 20:00] VITALS: BP 111/61
--- NOTE | 2017-05-26 23:00 | NUR ---
PT STATES PAIN MED WAS NOT EFFECTIVE AND REQUESTING MORE. PT TEACHING GIVEN ON PAIN MED USE AND TIMES. PT ACKNOWLEDGES.
[2017-05-27] VITALS: BP 119/56
--- NOTE | 2017-05-27 01:20 | NUR ---
PT MEDICATED WITH PRN NORCO FOR ABD PAIN AND PRN ZOFRAN FOR C/O NAUSEA. PT ENCOURAGED TO REST. PT STATES SHE CAN'T D/T CHRONIC GEN PAIN. WARM BLANKET PLACED OVER PT AND JUICE OFFERED AND ACCEPTED. WILL CONT. TO MONITOR.
--- NOTE | 2017-05-27 02:00 | NUR ---
PT RESTING QUIETLY IN BED. NO S/S OF NAUSEA/PAIN NOTED. PRN MEDS EFFECTIVE.
--- NOTE | 2017-05-27 03:17 | NUR ---
24 HR chart check completed.
--- NOTE | 2017-05-27 03:25 | NUR ---
PT MEDICATED WITH PRN DILAUDID FOR C/O PAIN ALL OVER, BUT MOSTLY RUQ 9/10. PT STATES THAT SHE TAKES 1500MG TYLENOL EVERY 3 HOURS AT HOME FOR PAIN RELIEF, WHEN ASKED WHAT SHE DOES FOR PAIN RELIEF AT HOME. PT TEACHING GIVEN ON ACETAMINOPHEN TOXICITY. PT STATES THAT IS ALL THAT WORKS FOR PAIN RELIEF. WILL NOTIFY MD IN AM.
[2017-05-27 06:02] LABS: BASO # 0.1 10*3/uL (0.0-0.1); BASO % 0.5 % (0.0-1.0); EOS # 0.1 10*3/uL (0.0-0.4); EOS % 0.9 % (1.0-4.0); HEMOGLOBIN 12.9 g/dl (12.0-16.0); MEAN CELL VOLUME 87.8 fl (81.0-99.0); MEAN CORPUSCULAR HGB 29.1 pg (27.0-31.0); MEAN CORPUSCULAR HGB CONC 33.1 g/dl (33.0-37.0); MEAN PLATELET VOLUME 9.6 fl (9.6-12.3); MONO % 8.8 % (3.0-9.0); NEUT # 5.7 10*3/uL (2.3-7.9); NEUT % 52.3 % (47.0-73.0); PLATELET COUNT AUTOMATED 262 10*3/uL (130-400); RED BLOOD COUNT 4.44 10*6/uL (4.10-5.10); RED CELL DISTRI WIDTH 13.8 % (0-14.5); WHITE BLOOD COUNT 10.9 10*3/uL (4.8-10.8)
[2017-05-27 06:14] LABS: BUN 10 mg/dl (7-24); CHLORIDE 99 mmol/L (98-107); CREATININE 0.75 mg/dL (0.55-1.02); POTASSIUM 3.2 mmol/L (3.5-5.1); SODIUM 137 mmol/L (136-145)
[2017-05-27 08:00] VITALS: BP 134/64
[2017-05-27] MEDS ORDERED: FLAGYL500 MG PO (10:19)
[2017-05-27] MEDS ORDERED: NORCO 5-325 TA1 EACH PO (10:19)
[2017-05-27] MEDS ORDERED: K-TAB10 MEQ PO (10:19)
[2017-05-27] MEDS ORDERED: CIPRO500 MG PO (10:19)
--- NOTE | 2017-05-27 12:00 | NUR ---
Discharge instructions reviewed with patient/family. Patient receptive and verbalizes understanding. Follow-up care arranged. Written instructions given to patient/family. [place]OCK REMOVED INTACT. HEART MONITOR REMOVED. PATIENT WAS DISCHARGED BY WHEELCHAIR IN CAR OF SON. YESICA ESTRADA
== END 2017-05-27 12:00 | disposition home or self-care (01) | DRG 392 ==
LOC: ED 06:25 → EDHOLD 08:41 → 4E 09:18
PROVIDERS: Emergency Medicine; Internal Medicine; ADMIT Internal Medicine
DX: R10.9 Unspecified abdominal pain (principal); J44.9 Chronic obstructive pulmonary disease, unspecified; G25.71 Drug induced akathisia; E11.9 Type 2 diabetes mellitus without complications; E55.9 Vitamin D deficiency, unspecified; D72.829 Elevated white blood cell count, unspecified; E78.5 Hyperlipidemia, unspecified; K59.00 Constipation, unspecified; F17.210 Nicotine dependence, cigarettes, uncomplicated; G89.29 Other chronic pain; R91.1 Solitary pulmonary nodule; E87.6 Hypokalemia; K21.9 Gastro-esophageal reflux disease without esophagitis; M54.9 Dorsalgia, unspecified; K57.90 Diverticulosis of intestine, part unspecified, without perforation or abscess without bleeding; G47.33 Obstructive sleep apnea (adult) (pediatric); F41.1 Generalized anxiety disorder; E89.0 Postprocedural hypothyroidism; I10 Essential (primary) hypertension; Z71.6 Tobacco abuse counseling; Z88.0 Allergy status to penicillin; Z88.8 Allergy status to other drugs, medicaments and biological substances; Z87.440 Personal history of urinary (tract) infections; Z90.49 Acquired absence of other specified parts of digestive tract; Z90.710 Acquired absence of both cervix and uterus; Z82.49 Family history of ischemic heart disease and other diseases of the circulatory system; Z83.3 Family history of diabetes mellitus; Z79.82 Long term (current) use of aspirin; Z79.899 Other long term (current) drug therapy; Z79.84 Long term (current) use of oral hypoglycemic drugs

== ENCOUNTER 2017-11-08 19:24 | Inpatient (IN) | payer OTHER ==
[~2017-11-08] VITALS: Ht 157.4 cm; Wt 65.8 kg
--- NOTE | ~2017-11-08 | EKG ---
[place], [place] ELECTROCARDIOGRAM REPORT NAME: DANO RODARTE UNIT #: [id number] ROOM: 403 DOCTOR: SHAILESH WHITESIDE MD BIRTHDATE: [birth year] DOS: 11/08/2017 TIME: 1932 hours. FINDINGS: 1. Normal sinus rhythm at 69 beats per minute. 2. The tracing is normal. 3. No previous tracing is available for comparison. SHAILESH WHITESIDE MD CM:EKGRPT:ELECTROCARDIOGRAM REPORT 1838 56 SHAILESH WHITESIDE MD
--- NOTE | ~2017-11-08 | O ---
[place], [place] OPERATIVE NOTE [id number] UN[facility] #: [id number] ROOM: 403 DOCTOR: ANUSHA GIANGED BIRTHDATE: [birth year] DOS: 11/09/2017 HISTORY OF PRESENT ILLNESS: The patient is 67 years old who has presented with chief complaint of abdominal pain, nausea, vomiting, midsternal pain, some shortness of breath, although room air oxygenation was 98%. The patient with a history of GERD, on omeprazole and Zantac and Maalox. PAST MEDICAL HISTORY: Has been reviewed. PAST SURGICAL HISTORY: Also associated with cholecystectomy, appendectomy, hysterectomy, thyroidectomy, and bowel resection. MEDICATION: List reviewed. SOCIAL HISTORY: Nicotine dependence. No alcohol. FAMILY HISTORY: Noncontributory. IMAGING STUDIES: CT scan of the abdomen was done in the Emergency Room appears to be a faint, stranding about the proximal duodenum, which was the point of concern. No bowel obstruction. Lactic acid was 2.1, follow up lactic acid normal. PROCEDURE: Today's procedure part of investigation is panendoscopy plus biopsy. PREMEDICATION: Propofol. SCOPE: Olympus forward-viewing gastroscope, Q10 video. REPORT: After putting the patient in left lateral position and application of lubricant to the scope, the scope was introduced. Thereafter, under direct visualization, advanced through the length of esophagus. A 2.5 cm hiatal hernia was noticed. Gastric pouch was entered. Mild gastritis seen. Antral biopsy was obtained. Duodenal bulb, second and third part within normal limits. There is no evidence of ulceration. There is no evidence of acute upper gastrointestinal contribution to her symptomatology except hiatal sac. She is on chronic PPI therapy. IMPRESSION: Hiatal hernia, gastritis, normal CT scan of the abdomen, history of COPD, anxiety, gastritis, reflux, hypertension, hypothyroidism, all recognized and diabetes mellitus. The patient can be treated conservatively and reassessed for abdominal pain evaluation in case she has to have further studies done. At the present time, she is on prednisone. She has had a colonoscopy on 09/2016, which has been normal and all her studies are normal. On the other hand, leukocytosis of 24,000 has dropped to white blood cell of 18 today and most likely prednisone contribution into this picture has to be in consideration, particularly that her differential cells are within normal limits, there is no shift. Hemoglobin A1c is 6.1. She needs a tighter control on her glucose and at the present time we can feed her. [place], [place] OPERATIVE NOTE NAME: DANO RODARTE UNIT #: [id number] ROOM: [facility] DOCTOR: ANUSHA GIANG,ED BIRTHDATE: [birth year] ED TAVARES MD CM:OPRECORD:OPERATIVE NOTE 1612 1703 ED TAVARES MD 11/09/17 1702 interface
[~2017-11-08 19:24] MED LIST changes: +CYMBALTA60 MG PO; +FOSAMAX PLUS D1 EACH PO; +HYDROXYZINE HCL25 M1 PO; +ISOSORBIDE MON120 MG PO; +K-TAB10 MEQ PO; +OMEPRAZOLE D/R20 MG PO
[2017-11-08 19:26] VITALS: BP 170/85
[2017-11-08 19:46] LABS: HEMATOCRIT 43.8 % (37.0-47.0); HEMOGLOBIN 14.2 g/dl (12.0-16.0); MEAN CELL VOLUME 89.6 fl (81.0-99.0); MEAN CORPUSCULAR HGB CONC 32.4 g/dl (33.0-37.0); MEAN PLATELET VOLUME 9.1 fl (9.6-12.3); PLATELET COUNT AUTOMATED 412 10*3/uL (130-400); RED BLOOD COUNT 4.89 10*6/uL (4.10-5.10); RED CELL DISTRI WIDTH 13.6 % (0-14.5); WHITE BLOOD COUNT 24.2 10*3/uL (4.8-10.8)
[2017-11-08 19:56] LABS: INTERNATIONAL NORM RATIO 0.9 (2.0-3.5)
[2017-11-08 20:02] LABS: ALBUMIN 3.6 gm/dl (3.1-4.5); ALKALINE PHOSPHATASE 64 U/L (45-117); BUN 14 mg/dl (7-24); CHLORIDE 90 mmol/L (98-107); CREATININE 0.73 mg/dL (0.55-1.02); LIPASE 111 U/L (73-393); SGOT/AST 11 IU/L (3-35); SGPT/ALT 20 U/L (12-78); SODIUM 132 mmol/L (136-145); TOTAL PROTEIN 7.5 gm/dL (6.4-8.2)
[2017-11-08 20:05] LABS: TROPONIN I < 0.015 ng/ml (<0.045)
[2017-11-08 20:06] LABS: TOTAL CELLS COUNTED 100 #CELLS
[2017-11-08 20:07] LABS: PLATELET SUFFICIENCY HIGH (NORMAL)
[2017-11-08 21:01] LABS: BILIRUBIN NEGATIVE (NEGATIVE); BLOOD NEGATIVE (NEGATIVE); CLARITY CLEAR (CLEAR); COLOR YELLOW (YELLOW); GLUCOSE NEGATIVE (NEGATIVE); KETONE NEGATIVE (NEGATIVE); LEUKO ESTERASE NEGATIVE (NEGATIVE); NITRITE NEGATIVE (NEGATIVE); PH 6.5 (5.0-9.0); SPECIFIC GRAVITY 1.015 (1.005-1.030); UROBILINOGEN 0.2 E.U./dl (0.2-1.0)
[2017-11-08 21:10] LABS: URINE AMPHETAMINES < 1000 (1000ng/ml); URINE BARBITURATES < 200 (200ng/ml); URINE BENZODIAZEPINES < 200 (200ng/ml); URINE CANNABINOIDS (THC) < 50 (50ng/ml); URINE COCAINE < 300 (300ng/ml); URINE METHADONE < 300 (300ng/ml); URINE OPIATES < 300 (300ng/ml)
[2017-11-08 21:12] LABS: BACTERIA TRACE; RBC 0-2 rbc/hpf (0-2)
[2017-11-08 21:13] VITALS: BP 161/74
[2017-11-08 21:13] LABS: URINE PHENCYCLIDINE < 25 (25ng/ml)
[2017-11-08 21:56] VITALS: BP 172/78
[2017-11-08 23:27] VITALS: BP 138/72
[2017-11-09] VITALS (9 sets, daily range): BP systolic 145–164; BP diastolic 68–94
[2017-11-09] MEDS ORDERED: HYDROCHLOROTHIA25 M1 PO (01:05)
[2017-11-09] MEDS ORDERED: LIPITOR40 MG PO (01:08)
[2017-11-09] MEDS ORDERED: AMITRIPTYLINE H10 M1 PO (01:12)
[2017-11-09] MEDS ORDERED: AMLODIPINE BESYL5 MG PO (01:13)
[2017-11-09] MEDS ORDERED: CALCIUM + VITA1 EAC2 PO (01:14)
[2017-11-09 07:12] LABS: HEMATOCRIT 45.4 % (37.0-47.0); MEAN CELL VOLUME 91.5 fl (81.0-99.0); MEAN CORPUSCULAR HGB 28.2 pg (27.0-31.0); MEAN CORPUSCULAR HGB CONC 30.8 g/dl (33.0-37.0); MEAN PLATELET VOLUME 9.4 fl (9.6-12.3); PLATELET COUNT AUTOMATED 385 10*3/uL (130-400); RED BLOOD COUNT 4.96 10*6/uL (4.10-5.10); RED CELL DISTRI WIDTH 13.8 % (0-14.5)
[2017-11-09 07:44] LABS: CHLORIDE 95 mmol/L (98-107)
[2017-11-09 07:59] LABS: ALBUMIN 3.4 gm/dl (3.1-4.5); ALKALINE PHOSPHATASE 61 U/L (45-117); BUN 9 mg/dl (7-24); CHOLESTEROL 185 mg/dL (<200); CREATININE 0.83 mg/dL (0.55-1.02); FREE T4 0.99 ng/dl (0.76-1.46); HDL CHOLESTEROL 42 mg/dl (40-60); LDL CHOLESTEROL 80 mg/dL (9-159); PHOSPHOROUS 3.2 mg/dL (2.5-4.9); SGOT/AST 16 IU/L (3-35); SGPT/ALT 21 U/L (12-78); TOTAL PROTEIN 7.4 gm/dL (6.4-8.2); TRIGLYCERIDES 313 mg/dl (<150); VLDL CHOLESTEROL 63 mg/dL (6-40)
[2017-11-09 08:15] LABS: SODIUM 138 mmol/L (136-145)
[2017-11-09 08:20] LABS: POTASSIUM 4.5 mmol/L (3.5-5.1)
[2017-11-09 08:32] LABS: PLATELET SUFFICIENCY NORMAL (NORMAL); TOTAL CELLS COUNTED 100 #CELLS
[2017-11-09] MEDS ORDERED: PRILOSEC20 M1 PO (10:02)
[2017-11-10] VITALS: BP 151/78
[2017-11-10 06:12] LABS: BASO % 0.2 % (0.0-1.0); EOS # 0.1 10*3/uL (0.0-0.4); HEMATOCRIT 44.1 % (37.0-47.0); HEMOGLOBIN 13.5 g/dl (12.0-16.0); LYMPH # 3.9 10*3/uL (1.3-4.4); LYMPH % 27.9 % (27.0-41.0); MEAN CELL VOLUME 92.6 fl (81.0-99.0); MEAN CORPUSCULAR HGB 28.4 pg (27.0-31.0); MEAN CORPUSCULAR HGB CONC 30.6 g/dl (33.0-37.0); MEAN PLATELET VOLUME 9.4 fl (9.6-12.3); MONO # 1.1 10*3/uL (0.1-1.0); MONO % 8.1 % (3.0-9.0); NEUT # 8.7 10*3/uL (2.3-7.9); NEUT % 62.3 % (47.0-73.0); PLATELET COUNT AUTOMATED 325 10*3/uL (130-400); RED BLOOD COUNT 4.76 10*6/uL (4.10-5.10); RED CELL DISTRI WIDTH 13.7 % (0-14.5); WHITE BLOOD COUNT 13.9 10*3/uL (4.8-10.8)
[2017-11-10 06:33] LABS: BUN 9 mg/dl (7-24); CHLORIDE 103 mmol/L (98-107); CREATININE 0.63 mg/dL (0.55-1.02); SODIUM 140 mmol/L (136-145)
[2017-11-10 08:44] VITALS: BP 150/80
[2017-11-10] MEDS ORDERED: PANTOPRAZOLE SO40 MG PO (11:11)
[2017-11-10 12:00] VITALS: BP 130/75
== END 2017-11-10 14:46 | disposition home or self-care (01) | DRG 392 ==
LOC: ED 19:24 → 4E 23:18 → EDHOLD 23:18 → 4E 23:41
PROVIDERS: Family Medicine; Internal Medicine Hospice and Palliative Medicine; Nurse Practitioner Family
PROC: 0DB68ZX Excision of Stomach, Via Natural or Artificial Opening Endoscopic, Diagnostic (ICD-10-PCS; principal; 2017-11-09)
DX: K29.80 Duodenitis without bleeding (principal); E87.2 Acidosis; E87.8 Other disorders of electrolyte and fluid balance, not elsewhere classified; J44.9 Chronic obstructive pulmonary disease, unspecified; E11.65 Type 2 diabetes mellitus with hyperglycemia; E87.1 Hypo-osmolality and hyponatremia; N39.0 Urinary tract infection, site not specified; K29.70 Gastritis, unspecified, without bleeding; E83.41 Hypermagnesemia; E87.6 Hypokalemia; D47.3 Essential (hemorrhagic) thrombocythemia; G89.29 Other chronic pain; M51.35 Other intervertebral disc degeneration, thoracolumbar region; F41.1 Generalized anxiety disorder; F32.9 Major depressive disorder, single episode, unspecified; K21.9 Gastro-esophageal reflux disease without esophagitis; E78.5 Hyperlipidemia, unspecified; I10 Essential (primary) hypertension; K57.90 Diverticulosis of intestine, part unspecified, without perforation or abscess without bleeding; E89.0 Postprocedural hypothyroidism; K44.9 Diaphragmatic hernia without obstruction or gangrene; F17.210 Nicotine dependence, cigarettes, uncomplicated; K57.30 Diverticulosis of large intestine without perforation or abscess without bleeding; E53.8 Deficiency of other specified B group vitamins; G47.33 Obstructive sleep apnea (adult) (pediatric); Z90.49 Acquired absence of other specified parts of digestive tract; Z90.710 Acquired absence of both cervix and uterus; Z82.49 Family history of ischemic heart disease and other diseases of the circulatory system; Z71.6 Tobacco abuse counseling; Z88.0 Allergy status to penicillin; Z88.8 Allergy status to other drugs, medicaments and biological substances; Z79.899 Other long term (current) drug therapy

== ENCOUNTER → 2018-05-07 | Outpatient (CLI) | payer OTHER ==
[~2018-05-07] MED LIST changes: +AMITRIPTYLINE H10 M1 PO; +AMLODIPINE BESYL5 MG PO; +CALCIUM + VITA1 EAC2 PO; +LIPITOR40 MG PO; +PANTOPRAZOLE SO40 MG PO; +PRILOSEC20 M1 PO
== END | disposition home or self-care (01) ==
LOC: RAD 15:17
DX: M25.475 Effusion, left foot (principal); M25.572 Pain in left ankle and joints of left foot

== ENCOUNTER 2018-06-25 11:26 | Inpatient (IN) | payer OTHER ==
[~2018-06-25] VITALS: Ht 157.5 cm; Wt 66.4 kg
[2018-06-25] VITALS (7 sets, daily range): BP systolic 129–184; BP diastolic 79–103
--- NOTE | ~2018-06-25 | EKG ---
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
[~2018-06-25 11:26] MED LIST changes: -LEVOTHYROXIN0.075 MG PO; +LEVOXYL75 MCG PO; +SEPTDS PO
[2018-06-25 12:11] LABS: BASO # 0.1 10*3/uL (0.0-0.1); BASO % 0.6 % (0.0-1.0); EOS # 0.2 10*3/uL (0.0-0.4); EOS % 1.7 % (1.0-4.0); HEMATOCRIT 42.4 % (37.0-47.0); LYMPH # 2.5 10*3/uL (1.3-4.4); LYMPH % 29.1 % (27.0-41.0); MEAN CELL VOLUME 82.7 fl (81.0-99.0); MEAN CORPUSCULAR HGB 27.3 pg (27.0-31.0); MEAN PLATELET VOLUME 8.9 fl (9.6-12.3); MONO # 0.8 10*3/uL (0.1-1.0); MONO % 9.4 % (3.0-9.0); NEUT # 5.1 10*3/uL (2.3-7.9); PLATELET COUNT AUTOMATED 397 10*3/uL (130-400); RED BLOOD COUNT 5.13 10*6/uL (4.10-5.10); RED CELL DISTRI WIDTH 12.9 % (0-14.5); WHITE BLOOD COUNT 8.6 10*3/uL (4.8-10.8)
[2018-06-25 12:27] LABS: ALBUMIN 3.2 gm/dl (3.1-4.5); ALKALINE PHOSPHATASE 141 U/L (45-117); BUN 7 mg/dl (7-24); CHLORIDE 88 mmol/L (98-107); CREATININE 0.88 mg/dL (0.55-1.02); SGOT/AST 16 IU/L (3-35); SGPT/ALT 16 U/L (12-78); SODIUM 126 mmol/L (136-145); TOTAL PROTEIN 7.6 gm/dL (6.4-8.2)
[2018-06-25 12:28] LABS: TROPONIN I < 0.015 ng/ml (<0.045)
[2018-06-25 12:28] LABS: BILIRUBIN NEGATIVE (NEGATIVE); BLOOD NEGATIVE (NEGATIVE); CLARITY SL CLOUDY (CLEAR); COLOR YELLOW (YELLOW); GLUCOSE NEGATIVE (NEGATIVE); KETONE NEGATIVE (NEGATIVE); LEUKO ESTERASE TRACE (NEGATIVE); NITRITE NEGATIVE (NEGATIVE)
[2018-06-25 12:39] LABS: BACTERIA 1+; EPITHELIAL CELLS 55-60
[2018-06-25] MEDS ORDERED: ONDANSETRON HYDR4 M1 PO (15:34)
[2018-06-25] MEDS ORDERED: TESSALON PERLE100 MG PO (15:37)
[2018-06-25] MEDS ORDERED: TEGRETOL100 MG/5 M PO ×2 (15:41→15:42)
[2018-06-26] VITALS: BP 118/86
[2018-06-26 08:00] VITALS: BP 155/70
[2018-06-26 08:03] LABS: BASO % 0.2 % (0.0-1.0); EOS % 0.2 % (1.0-4.0); HEMATOCRIT 39.6 % (37.0-47.0); HEMOGLOBIN 12.7 g/dl (12.0-16.0); LYMPH # 1.5 10*3/uL (1.3-4.4); LYMPH % 27.8 % (27.0-41.0); MEAN CELL VOLUME 83.7 fl (81.0-99.0); MEAN CORPUSCULAR HGB 26.8 pg (27.0-31.0); MEAN CORPUSCULAR HGB CONC 32.1 g/dl (33.0-37.0); MEAN PLATELET VOLUME 9.2 fl (9.6-12.3); MONO # 0.2 10*3/uL (0.1-1.0); MONO % 4.4 % (3.0-9.0); NEUT # 3.7 10*3/uL (2.3-7.9); NEUT % 67.2 % (47.0-73.0); PLATELET COUNT AUTOMATED 370 10*3/uL (130-400); RED BLOOD COUNT 4.73 10*6/uL (4.10-5.10); RED CELL DISTRI WIDTH 12.7 % (0-14.5); WHITE BLOOD COUNT 5.4 10*3/uL (4.8-10.8)
[2018-06-26 08:27] LABS: ALBUMIN 3.4 gm/dl (3.1-4.5); ALKALINE PHOSPHATASE 125 U/L (45-117); BUN 8 mg/dl (7-24); CHLORIDE 90 mmol/L (98-107); CHOLESTEROL 144 mg/dL (<200); CREATININE 0.67 mg/dL (0.55-1.02); HDL CHOLESTEROL 46 mg/dl (40-60); LDL CHOLESTEROL 69 mg/dL (9-159); PHOSPHOROUS 2.3 mg/dL (2.5-4.9); SGOT/AST 14 IU/L (3-35); SGPT/ALT 16 U/L (12-78); SODIUM 125 mmol/L (136-145); TOTAL PROTEIN 7.6 gm/dL (6.4-8.2); TRIGLYCERIDES 143 mg/dl (<150); VLDL CHOLESTEROL 29 mg/dL (6-40)
[2018-06-26 08:31] LABS: THYROID STIM HORMONE (HS) 0.312 uIU/ml (0.358-4.75)
[2018-06-26 08:44] LABS: VITAMIN D, 25-HYDROXY 41.2 ng/mL (30-100)
[2018-06-26 08:46] LABS: POTASSIUM 4.2 mmol/L (3.5-5.1)
[2018-06-26 12:00] VITALS: BP 140/75
[2018-06-26 16:00] VITALS: BP 150/96
== END 2018-06-26 19:43 | disposition left against medical advice (07) | DRG 872 ==
LOC: ED 11:26 → 4E 14:10 → EDHOLD 14:10 → 4E 14:19
PROVIDERS: Emergency Medicine; Student in an Organized Health Care Education/Training Program
DX: A41.9 Sepsis, unspecified organism (principal); E87.1 Hypo-osmolality and hyponatremia; R06.82 Tachypnea, not elsewhere classified; E53.8 Deficiency of other specified B group vitamins; G89.29 Other chronic pain; E78.5 Hyperlipidemia, unspecified; F32.9 Major depressive disorder, single episode, unspecified; E03.9 Hypothyroidism, unspecified; E11.65 Type 2 diabetes mellitus with hyperglycemia; I10 Essential (primary) hypertension; K21.9 Gastro-esophageal reflux disease without esophagitis; J44.9 Chronic obstructive pulmonary disease, unspecified; E83.39 Other disorders of phosphorus metabolism; F17.210 Nicotine dependence, cigarettes, uncomplicated; E66.3 Overweight; R53.1 Weakness; R82.71 Bacteriuria; M51.35 Other intervertebral disc degeneration, thoracolumbar region; M47.896 Other spondylosis, lumbar region; K57.90 Diverticulosis of intestine, part unspecified, without perforation or abscess without bleeding; Z53.21 Procedure and treatment not carried out due to patient leaving prior to being seen by health care provider; F41.1 Generalized anxiety disorder; G47.33 Obstructive sleep apnea (adult) (pediatric); E87.8 Other disorders of electrolyte and fluid balance, not elsewhere classified; E87.6 Hypokalemia; Z71.6 Tobacco abuse counseling; Z88.0 Allergy status to penicillin; Z88.8 Allergy status to other drugs, medicaments and biological substances; Z88.6 Allergy status to analgesic agent; Z90.49 Acquired absence of other specified parts of digestive tract; Z90.710 Acquired absence of both cervix and uterus; Z82.49 Family history of ischemic heart disease and other diseases of the circulatory system; Z83.3 Family history of diabetes mellitus; Z87.440 Personal history of urinary (tract) infections; Z79.899 Other long term (current) drug therapy; Z68.26 Body mass index [BMI] 26.0-26.9, adult

== ENCOUNTER 2018-11-21 13:49 | Inpatient (IN) | payer OTHER ==
[~2018-11-21] VITALS: Ht 157.4 cm; Wt 59.6 kg
--- NOTE | ~2018-11-21 | EKG ---
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
--- NOTE | ~2018-11-21 | EKG ---
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 : 1950 Requested By: HYACINTH MARTINEZ Order Number: [id number] Reading MD: Cindy Sndyer MD Measurements Intervals [place] Rate: 81 P: 85 MI: 253 QRS: 1 QRSD: 77 T: 51 QT: 365 QTc: 424 Interpretive Statements Sinus rhythm Prolonged MI interval Baseline wander in lead(s) V4 Compared to ECG 06/25/2018 12:09:34 First degree AV block now present Sinus tachycardia no longer present Myocardial infarct finding no longer present Electronically Signed On 11-21-2018 15:53:42 PDT by Cindy Snyder MD CM:EKGRPT:ELECTROCARDIOGRAM REPORT 1652 1553 HYACINTH MARTINEZ MD EPIPHANY DRAFT REPORT HYACINTH MARTINEZ MD
--- NOTE | ~2018-11-21 | EKG ---
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
--- NOTE | ~2018-11-21 | EKG ---
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
--- NOTE | ~2018-11-21 | EKG ---
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
--- NOTE | ~2018-11-21 | EKG ---
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
[~2018-11-21 13:49] MED LIST changes: +ONDANSETRON HYDR4 M1 PO; +TEGRETOL100 MG/5 M PO; +TESSALON PERLE100 MG PO
[2018-11-21 13:57] VITALS: BP 179/105
[2018-11-21 14:28] LABS: BASO % 0.1 % (0.0-1.0); EOS % 0.2 % (1.0-4.0); HEMATOCRIT 40.2 % (37.0-47.0); HEMOGLOBIN 13.7 g/dl (12.0-16.0); LYMPH # 2.4 10*3/uL (1.3-4.4); LYMPH % 14.3 % (27.0-41.0); MEAN CELL VOLUME 77.8 fl (81.0-99.0); MEAN CORPUSCULAR HGB 26.5 pg (27.0-31.0); MEAN CORPUSCULAR HGB CONC 34.1 g/dl (33.0-37.0); MEAN PLATELET VOLUME 8.5 fl (9.6-12.3); MONO # 1.3 10*3/uL (0.1-1.0); MONO % 7.8 % (3.0-9.0); NEUT % 77.1 % (47.0-73.0); PLATELET COUNT AUTOMATED 455 10*3/uL (130-400); RED BLOOD COUNT 5.17 10*6/uL (4.10-5.10); RED CELL DISTRI WIDTH 14.6 % (0-14.5); WHITE BLOOD COUNT 16.8 10*3/uL (4.8-10.8)
[2018-11-21 14:39] LABS: ACT PARTIAL THROMBO TIME 29.5 SECONDS (20.0-32.1); INTERNATIONAL NORM RATIO 0.9 (2.0-3.5)
--- NOTE | 2018-11-21 14:43 | NUR ---
THE PT CAN NOT PROVIDE A URINE SAMPLE
[2018-11-21 14:54] LABS: ALBUMIN 3.7 gm/dl (3.1-4.5); ALKALINE PHOSPHATASE 173 U/L (45-117); BUN 10 mg/dl (7-24); CHLORIDE 84 mmol/L (98-107); CREATININE 0.71 mg/dL (0.55-1.02); POTASSIUM 2.7 mmol/L (3.5-5.1); SGOT/AST 17 IU/L (3-35); SGPT/ALT 23 U/L (12-78); SODIUM 123 mmol/L (136-145)
[2018-11-21 14:55] LABS: TROPONIN I 0.016 ng/ml (<0.045)
[2018-11-21 15:17] VITALS: BP 149/86
[2018-11-21 15:41] LABS: CARBAMAZEPINE (TEGRETOL) TOTAL 6.3 ug/ml (4-12); THYROID STIM HORMONE (HS) 0.695 uIU/ml (0.358-4.75)
[2018-11-21 16:02] LABS: BILIRUBIN NEGATIVE (NEGATIVE); BLOOD NEGATIVE (NEGATIVE); CLARITY CLEAR (CLEAR); COLOR YELLOW (YELLOW); GLUCOSE NEGATIVE (NEGATIVE); KETONE NEGATIVE (NEGATIVE); LEUKO ESTERASE TRACE (NEGATIVE); NITRITE NEGATIVE (NEGATIVE); PH 6.5 (5.0-9.0); UROBILINOGEN 0.2 E.U./dl (0.2-1.0)
[2018-11-21 16:09] LABS: BACTERIA 1+
[2018-11-21 16:12] VITALS: BP 167/93
[2018-11-21] MEDS ORDERED: Tegretol100 MG/5 M PO ×2 (19:37)
[2018-11-21] MEDS ORDERED: TOBRADEX 0.3-0.15 ML OT (19:41)
[2018-11-21] MEDS ORDERED: ALENDRONATE SOD70 M1 PO (19:42)
[2018-11-21] MEDS ORDERED: BUSPAR15 MG PO (19:45)
[2018-11-21 20:00] VITALS: BP 169/78
[2018-11-21 21:07] VITALS: BP 172/80
--- NOTE | 2018-11-21 21:09 | NUR ---
NOTIFIED PATIENT COMPLAINING OF MIDSTERNAL TO EPIGASTRIC AREA CHEST PAIN, BP 172/80 AT THIS TIME. OTHERWISE VSS.
[2018-11-22] VITALS: BP 160/78
[2018-11-22 01:35] VITALS: BP 180/88
--- NOTE | 2018-11-22 01:41 | NUR ---
SPOKE WITH DR. LIGHT REGARDING PATIENT C/O STRETCHING IN CHEST AND BLOOD PRESSURE OF 180/88, SEE NEW ORDERS.
[2018-11-22 03:13] VITALS: BP 140/88
[2018-11-22 03:14] LABS: BASO # 0.1 10*3/uL (0.0-0.1); BASO % 0.5 % (0.0-1.0); EOS # 0.1 10*3/uL (0.0-0.4); EOS % 0.9 % (1.0-4.0); HEMATOCRIT 37.9 % (37.0-47.0); HEMOGLOBIN 12.5 g/dl (12.0-16.0); LYMPH # 3.3 10*3/uL (1.3-4.4); LYMPH % 31.2 % (27.0-41.0); MEAN CELL VOLUME 80.1 fl (81.0-99.0); MEAN CORPUSCULAR HGB 26.4 pg (27.0-31.0); MEAN PLATELET VOLUME 8.4 fl (9.6-12.3); MONO # 0.8 10*3/uL (0.1-1.0); MONO % 7.8 % (3.0-9.0); NEUT # 6.2 10*3/uL (2.3-7.9); NEUT % 59.2 % (47.0-73.0); PLATELET COUNT AUTOMATED 370 10*3/uL (130-400); RED BLOOD COUNT 4.73 10*6/uL (4.10-5.10); RED CELL DISTRI WIDTH 14.8 % (0-14.5); WHITE BLOOD COUNT 10.5 10*3/uL (4.8-10.8)
[2018-11-22 03:32] LABS: ALBUMIN 3.2 gm/dl (3.1-4.5); BUN 7 mg/dl (7-24); CHLORIDE 96 mmol/L (98-107); CHOLESTEROL 130 mg/dL (<200); CREATININE 0.55 mg/dL (0.55-1.02); PHOSPHOROUS 2.8 mg/dL (2.5-4.9); SGOT/AST 17 IU/L (3-35); SGPT/ALT 20 U/L (12-78); SODIUM 132 mmol/L (136-145); TRIGLYCERIDES 106 mg/dl (<150); VLDL CHOLESTEROL 21 mg/dL (6-40)
[2018-11-22 03:33] LABS: ALKALINE PHOSPHATASE 150 U/L (45-117); FREE T4 1.14 ng/dl (0.76-1.46); TOTAL PROTEIN 6.9 gm/dL (6.4-8.2)
[2018-11-22 03:34] LABS: POTASSIUM 3.7 mmol/L (3.5-5.1)
[2018-11-22 03:42] LABS: HDL CHOLESTEROL 41 mg/dl (40-60); LDL CHOLESTEROL 68 mg/dL (9-159); THYROID STIM HORMONE (HS) 0.782 uIU/ml (0.358-4.75)
--- NOTE | 2018-11-22 07:39 | NUR ---
PHYSICAL THERAPY Nursing screen received. PT orders also received. Thank you. oDminique Velásquez,PT
--- NOTE | 2018-11-22 07:53 | NUR ---
OCCUPATIONAL THERAPY Nursing screen received. OT orders also received. Thank you. Skye Vanessa OTR/L
--- NOTE | 2018-11-22 08:45 | NUR ---
Occupational Therapy evaluation attempted. Patient with breakfast at this time. Will follow-up later. Thank you, Skye Brooks OTR/L
--- NOTE | 2018-11-22 08:56 | NUR ---
PHYSICAL THERAPY PAtient eating breakfast at this time. Thank you for this referral. Dominique Velásquez,PT
--- NOTE | 2018-11-22 09:00 | NUR ---
Supervisor Taping in to talk to patient. Patient states lives at home with her son and [id number]. There are 0 steps in the home. Physician: Elsi Ellsworth Pharmacy: [facility] Home health services: none Patient's level of ADLs: INDEPENDENT Patient has working utilities: yes DME: O2 @ 2L [facility], unknown O2 supplier Follow-up physician's appointment after d/c: will be made by the hospitalist nurse director upon discharge Does patient want to access PORTAL?: no Discharge plan discussed with patient. She lives at home with her son and [id number]. She states she is independent in her ADLs and ambulation. Discussed home health care services vs SNF and she refuses both. She is tearful stating "My only grandbaby was born yesterday and I am here in the hospital. I feel like I should be home." She doesn't understand why she is in the hospital and what is going on. Discussed her lab work being abnormal. She verbalized an understanding. When medically stable she will be discharged to home. NAA ROD
--- NOTE | 2018-11-22 09:38 | NUR ---
PHYSICAL THERAPY Patient evaluated on 4, full evaluation to follow. Continue with PT as per plan of care with fall, 02, alarm, acute confusion, c/o severe chest pain and head ache ( nurse educated and aware) and acute debility precautions. May require SNF, pending progress. PAtient is high complexity via chart review, tests and evaluation: [id number]. Thank you for this referral. Dominique Velásquez,PT
--- NOTE | 2018-11-22 09:49 | NUR ---
Occupational Therapy evaluation completed on the 4th floor with full eval to follow. Precautions: fall risk, confusion, alarms, IV site, O2, anxious, chest pain, headache, nausous. Moderate complexity level. REcommend SNF. WOrk on functional strengthening, functional mobility, bathroom mobility, safety/education etc. THank you for this referral, Skye Brooks OTR/L
[2018-11-22 12:00] VITALS: BP 158/92
[2018-11-22 12:08] LABS: VITAMIN D, 25-HYDROXY 57.3 ng/mL (30-100)
[2018-11-22 16:00] VITALS: BP 190/92
[2018-11-22 20:00] VITALS: BP 131/76
--- NOTE | 2018-11-22 21:05 | NUR ---
2200 MEDICATIONS GIVEN AT THIS TIME WELL PRN NORCO FOR C/O GENERALIZED PAIN. CALL LIGHT IS WITHIN REACH. WILL MONITOR EFFECT
[2018-11-23] VITALS: BP 120/71
--- NOTE | 2018-11-23 00:20 | NUR ---
PRN NORCO GIVEN AT THIS TIME FOR C/O LEG AND FEET PAIN RATING A 10/10. CALL LIGHT IS WITHIN REACH WILL MONITOR EFFECT.
--- NOTE | 2018-11-23 00:24 | NUR ---
SPOKE WITH DR. EDMONDS REGARDING PATIENT C/O NORCO NOT WORKING AND REQUESTING PAIN SHOT. SEE NEW ORDERS.
--- NOTE | 2018-11-23 01:00 | NUR ---
HEP LOCK HERB CHAVEZ'Yumiko. SITE LEAKING/OCCLUDED.
--- NOTE | 2018-11-23 01:23 | NUR ---
ONE TIME TORADOL GIVEN AT THIS TIME, PATIENT TOLERATED WELL. CALL LIGHT IS WITHIN REACH.
--- NOTE | 2018-11-23 05:20 | NUR ---
AM MEDICATIONS GIVEN AT THIS TIME WELL PRN ZOFRAN AND NORCO FOR NAUSEA AND PAIN. PATIENT TOLERATED WELL, CALL LIGHT IS WITHIN REAC WILL MONITOR EFFECT.
[2018-11-23 06:46] LABS: BASO % 0.4 % (0.0-1.0); EOS # 0.1 10*3/uL (0.0-0.4); EOS % 1.1 % (1.0-4.0); HEMATOCRIT 34.1 % (37.0-47.0); LYMPH # 3.8 10*3/uL (1.3-4.4); LYMPH % 36.4 % (27.0-41.0); MEAN CELL VOLUME 80.8 fl (81.0-99.0); MEAN CORPUSCULAR HGB 26.1 pg (27.0-31.0); MEAN CORPUSCULAR HGB CONC 32.3 g/dl (33.0-37.0); MEAN PLATELET VOLUME 8.7 fl (9.6-12.3); MONO # 0.7 10*3/uL (0.1-1.0); MONO % 6.8 % (3.0-9.0); NEUT # 5.7 10*3/uL (2.3-7.9); NEUT % 54.7 % (47.0-73.0); PLATELET COUNT AUTOMATED 362 10*3/uL (130-400); RED BLOOD COUNT 4.22 10*6/uL (4.10-5.10); RED CELL DISTRI WIDTH 14.9 % (0-14.5); WHITE BLOOD COUNT 10.4 10*3/uL (4.8-10.8)
[2018-11-23 07:00] LABS: BUN 11 mg/dl (7-24); CHLORIDE 93 mmol/L (98-107); CREATININE 0.66 mg/dL (0.55-1.02); POTASSIUM 3.4 mmol/L (3.5-5.1); SODIUM 128 mmol/L (136-145)
--- NOTE | 2018-11-23 07:05 | NUR ---
PRN MEDICATIONS SEEM EFFECTIVE, PATIENT IS SLEEPING WITH EASY AND REGULAR RESPERS ON ROOM AIR. CALL LIGHT IS WITHIN REACH.
[2018-11-23 08:42] VITALS: BP 150/84
--- NOTE | 2018-11-23 11:29 | NUR ---
PRN PO NORCO NOT EFFECTIVE, PER PATIENT.
[2018-11-23 11:42] VITALS: BP 144/80
--- NOTE | 2018-11-23 13:04 | NUR ---
MEDICATED WITH PRN PO TYLENOL FOR HEADACHE.
--- NOTE | 2018-11-23 13:09 | NUR ---
Discharge instructions reviewed with patient/family. Patient receptive and verbalizes understanding. Follow-up care arranged. Written instructions given to patient/family. ADRIANNA LYNCH
--- NOTE | 2018-11-23 13:15 | NUR ---
PATIENT DISCHARGED TO [facility] LOBBY BY WHEELCHAIR, ACCOMPANIED BY [facility], FOR TRANSPORT HOME BY PRIVATE VEHICLE WITH SON.
[2018-12-26] MEDS ORDERED: ZOFRAN4 MG PO (15:49)
[2018-12-27] MEDS ORDERED: TRAZODONE100 MG PO (14:51)
[2019-01-17] MEDS ORDERED: DOXYCYCLINE100 M3 PO (09:12)
[2019-01-17] MEDS ORDERED: PREDNISONE10 MG PO (09:12)
[2019-01-17] MEDS ORDERED: IBU800 M1 PO (09:12)
== END 2018-11-23 13:51 | disposition home or self-care (01) | DRG 308 ==
LOC: ED 13:49 → 4E 15:20 → EDHOLD 15:20 → 4E 16:33
PROVIDERS: Emergency Medicine; Internal Medicine; ADMIT Internal Medicine
DX: I48.91 Unspecified atrial fibrillation (principal); G93.41 Metabolic encephalopathy; E87.1 Hypo-osmolality and hyponatremia; R65.10 Systemic inflammatory response syndrome (SIRS) of non-infectious origin without acute organ dysfunction; I31.3 Pericardial effusion (noninflammatory); E11.65 Type 2 diabetes mellitus with hyperglycemia; F41.1 Generalized anxiety disorder; M51.35 Other intervertebral disc degeneration, thoracolumbar region; E53.8 Deficiency of other specified B group vitamins; R91.8 Other nonspecific abnormal finding of lung field; I10 Essential (primary) hypertension; K57.90 Diverticulosis of intestine, part unspecified, without perforation or abscess without bleeding; G89.29 Other chronic pain; M47.816 Spondylosis without myelopathy or radiculopathy, lumbar region; M54.31 Sciatica, right side; K66.0 Peritoneal adhesions (postprocedural) (postinfection); E78.5 Hyperlipidemia, unspecified; F32.9 Major depressive disorder, single episode, unspecified; I34.0 Nonrheumatic mitral (valve) insufficiency; E03.9 Hypothyroidism, unspecified; K21.9 Gastro-esophageal reflux disease without esophagitis; G47.33 Obstructive sleep apnea (adult) (pediatric); J44.9 Chronic obstructive pulmonary disease, unspecified; E83.42 Hypomagnesemia; E87.6 Hypokalemia; Z88.6 Allergy status to analgesic agent; Z88.0 Allergy status to penicillin; Z88.8 Allergy status to other drugs, medicaments and biological substances; Z90.49 Acquired absence of other specified parts of digestive tract; Z90.710 Acquired absence of both cervix and uterus; Z87.891 Personal history of nicotine dependence; Z82.49 Family history of ischemic heart disease and other diseases of the circulatory system; Z83.3 Family history of diabetes mellitus; Z79.899 Other long term (current) drug therapy

== ENCOUNTER 2019-01-18 09:10 | Emergency (ER) | payer OTHER ==
[~2019-01-18] VITALS: Ht 157.4 cm; Wt 59.0 kg
--- NOTE | ~2019-01-18 | EKG ---
[place], [place] ELECTROCARDIOGRAM REPORT NAME: DANO RODARTE UNIT #: [id number] ROOM: DOCTOR: EPIPHANY DRAFT REPORT BIRTHDATE: [birth year] [facility] Test Date: 2019-01-18 Test Time: 09:59:01 Pat Name: DANO RODARTE Department: Room: Gender: F Dowel Pin Man: : 1950 Requested By: BAILEY WASHINGTON Order Number: [id number] Reading MD: Jonah Alicea MD Measurements Intervals Anderson Rate: 68 P: 9 LA: 180 QRS: -5 QRSD: 77 T: 47 QT: 412 QTc: 439 Interpretive Statements Sinus rhythm Compared to ECG 12/27/2018 15:46:37 Myocardial infarct finding no longer present Electronically Signed On 01-21-2019 4:08:49 PDT by Jonah Alicea MD CM:EKGRPT:ELECTROCARDIOGRAM REPORT [id number] BAILEY SANCHEZ DRAFT REPORT BAILEY WASHINGTON M.D.
[~2019-01-18 09:10] MED LIST changes: +ALENDRONATE SOD70 M1 PO; +BUSPAR15 MG PO; +DOXYCYCLINE100 M3 PO; +IBU800 M1 PO; +TOBRADEX 0.3-0.15 ML OT; +TRAZODONE100 MG PO; +Tegretol100 MG/5 M PO; +ZOFRAN4 MG PO
[2019-01-18 09:13] VITALS: BP 176/88
[2019-01-18 09:45] LABS: BASO % 0.1 % (0.0-1.0); EOS % 0.1 % (1.0-4.0); HEMATOCRIT 38.9 % (37.0-47.0); HEMOGLOBIN 12.9 g/dl (12.0-16.0); LYMPH # 3.6 10*3/uL (1.3-4.4); LYMPH % 23.2 % (27.0-41.0); MEAN CELL VOLUME 82.8 fl (81.0-99.0); MEAN CORPUSCULAR HGB 27.4 pg (27.0-31.0); MEAN CORPUSCULAR HGB CONC 33.2 g/dl (33.0-37.0); MEAN PLATELET VOLUME 8.7 fl (9.6-12.3); MONO # 0.7 10*3/uL (0.1-1.0); MONO % 4.6 % (3.0-9.0); NEUT # 11.1 10*3/uL (2.3-7.9); NEUT % 71.4 % (47.0-73.0); PLATELET COUNT AUTOMATED 434 10*3/uL (130-400); RED CELL DISTRI WIDTH 14.5 % (0-14.5); WHITE BLOOD COUNT 15.6 10*3/uL (4.8-10.8)
[2019-01-18 09:50] LABS: BILIRUBIN NEGATIVE (NEGATIVE); BLOOD NEGATIVE (NEGATIVE); CLARITY SL CLOUDY (CLEAR); COLOR YELLOW (YELLOW); GLUCOSE NEGATIVE (NEGATIVE); KETONE NEGATIVE (NEGATIVE); LEUKO ESTERASE NEGATIVE (NEGATIVE); NITRITE NEGATIVE (NEGATIVE); UROBILINOGEN 0.2 E.U./dl (0.2-1.0)
[2019-01-18 09:58] LABS: BACTERIA TRACE
[2019-01-18 10:02] LABS: ALBUMIN 3.7 gm/dl (3.1-4.5); ALKALINE PHOSPHATASE 123 U/L (45-117); BUN 8 mg/dl (7-24); CHLORIDE 87 mmol/L (98-107); CREATININE 0.71 mg/dL (0.55-1.02); SGOT/AST 16 IU/L (3-35); SGPT/ALT 21 U/L (12-78); SODIUM 127 mmol/L (136-145); TOTAL PROTEIN 7.7 gm/dL (6.4-8.2)
[2019-01-18 10:03] LABS: TROPONIN I < 0.015 ng/ml (<0.045)
[2019-01-18] MEDS ORDERED: ATIVAN1 MG PO (10:47)
== END 2019-01-18 11:09 | disposition home or self-care (01) ==
LOC: ED 09:10
PROVIDERS: Emergency Medicine
DX: F41.9 Anxiety disorder, unspecified (principal); J44.9 Chronic obstructive pulmonary disease, unspecified; H92.03 Otalgia, bilateral; I48.91 Unspecified atrial fibrillation; G89.29 Other chronic pain; I10 Essential (primary) hypertension; K21.9 Gastro-esophageal reflux disease without esophagitis; E78.5 Hyperlipidemia, unspecified; E03.9 Hypothyroidism, unspecified; E11.9 Type 2 diabetes mellitus without complications; F17.210 Nicotine dependence, cigarettes, uncomplicated; Z91.19 Patient's noncompliance with other medical treatment and regimen; Z88.6 Allergy status to analgesic agent; Z88.0 Allergy status to penicillin; Z88.8 Allergy status to other drugs, medicaments and biological substances; Z79.2 Long term (current) use of antibiotics; Z79.899 Other long term (current) drug therapy; Z90.49 Acquired absence of other specified parts of digestive tract; Z90.710 Acquired absence of both cervix and uterus

== ENCOUNTER 2019-02-28 19:40 | Inpatient (IN) | payer OTHER ==
[~2019-02-28] VITALS: Ht 157.5 cm; Wt 64.2 kg
--- NOTE | ~2019-02-28 | EKG ---
[place], [place] ELECTROCARDIOGRAM REPORT NAME: DANO RODARTE UNIT #: [id number] ROOM: 504 DOCTOR: LAURA DRAFT REPORT BIRTHDATE: [birth year] [facility] Test Date: 2019-02-28 Test Time: 20:26:18 Pat Name: DANO RODARTE Department: Room: 504 Gender: F Music Orchestrator: MOLINA : 1950 Requested By: TIANA MCKEON PA-C Order Number: [id number] Reading MD: Tc Diaz Measurements Intervals [place] Rate: 92 P: 68 MD: 174 QRS: -13 QRSD: 82 T: 43 QT: 415 QTc: 514 Interpretive Statements Sinus rhythm Left atrial enlargement Probable anteroseptal infarct, old Prolonged QT interval Compared to ECG 01/18/2019 09:59:01 Atrial abnormality now present Myocardial infarct finding now present Prolonged QT interval now present Electronically Signed On 03-01-2019 12:31:38 PDT by Tc Diaz CM:EKGRPT:ELECTROCARDIOGRAM REPORT [id number] TIANA MCKEON PA-C EPIPHANY DRAFT REPORT TIANA MCKEON PA-C
--- NOTE | ~2019-02-28 | CON ---
[place], [place] REPORT OF CONSULTATION NAME[id number] UNIT #: [id number] ROOM: 504 DOCTOR: HOLLIS HERNANDEZ MD BIRTHDATE: [birth year] DOS: 03/01/2019 REASON FOR CONSULTATION: Hyponatremia. HISTORY OF PRESENT ILLNESS: The patient is a 68-year-old female with history of hypertension, anxiety, atrial fibrillation, COPD, diabetes as well as chronic pain. She presented to the hospital complaining of nausea and vomiting and headache. Apparently, she had severe anxiety attack as well. She had some intermittent confusion. The patient's initial labs showed a sodium of 123. She was admitted for further evaluation. She was started on fluids and her sodium was fairly stable, a little bit improved overnight to 124 this morning. She had some basic labs including urine osmolality showing a level to be 407 with a urine sodium of 43. The patient does take modest doses of hydrochlorothiazide according to the notes. She was a poor historian when I went to see her. She was having issues with anxiety, complaining of pain and was asking for some intravenous medication to control her pain. Reviewing the records, the patient appears to have somewhat of chronic hyponatremia. In fact in November she had sodium as low as 123 and I did not see a level higher than 135, which was noted in January. She for the most part had sodium levels in the 120s range. The patient has been seen by our service in the past. She saw Dr. Will in fact just in December. She had somewhat of a similar presentation. She also had hypokalemia. Dr. Will felt that her hyponatremia was also related to the thiazide and possibly poor solute intake with a low protein diet, low salt diet. ALLERGIES: NAPROSYN, TRAZODONE, GABAPENTIN, PENICILLINS. MEDICATIONS: Reviewed in the chart. Pertinent meds include hydrochlorothiazide, ibuprofen, amlodipine, Tegretol, trazodone, to name a few. PAST MEDICAL AND SURGICAL HISTORY: 1. What appears to be chronic hyponatremia. 2. Adrenal adenoma. 3. Anxiety. 4. Atrial fibrillation. 5. B12 deficiency. 6. Chronic pain. 7. Chronic obstructive pulmonary disease. 8. Degenerative joint disease. 9. Depression. 10. Hypertension. 11. Gastroesophageal reflux disease. 12. Headache. 13. Hypothyroidism. 14. Obstructive sleep apnea. 15. Diabetes mellitus. 16. Vitamin D deficiency. 17. History of appendectomy. 18. Cholecystectomy. 19. Hernia repair. 20. Hysterectomy. [place], [place] REPORT OF CONSULTATION NAME: DANO RODARTE UNIT #: [id number] ROOM: [facility] DOCTOR: HOLLIS HERNANDEZ MD BIRTHDATE: [birth year] 21. Large bowel resection. 22. Thyroidectomy. FAMILY HISTORY: No reports of electrolyte disorders, otherwise noncontributory. SOCIAL HISTORY: She does have history of smoking. No reports of alcohol or illicit drugs. REVIEW OF SYSTEMS: As per HPI. Otherwise, a 10-point review of systems was reviewed and was negative. PHYSICAL EXAMINATION: VITAL SIGNS: Temperature afebrile, pulse 85, respiratory rate 22, blood pressure 175/79. GENERAL: She is awake, alert, lying in bed, in mild distress due to anxiety. HEENT: Shows no JVD. Sclerae are anicteric. Mucous membranes appeared somewhat dry. Pharynx was clear. NECK: Supple. Trachea is midline. There is no lymphadenopathy or thyromegaly. LUNGS: Diminished breath sounds with no wheeze. There is no tactile fremitus. She is not using accessory muscles of respiration. HEART: S1, S2. No rub. No thrill or gallop. ABDOMEN: Soft, nontender. There is no organomegaly or rigidity, rebound or guarding. There is no CVA tenderness. EXTREMITIES: Had no edema. There is no lower extremity lymphadenopathy. Distal pulses are 2+. SKIN: Showed no overt rash. There was no petechia or purpura. Skin temperature is warm. NEUROLOGIC: She was awake. She was alert. She is moving all 4 extremities, following commands. LABORATORY DATA: Hemoglobin 14.5, white count 7.7. BUN 5, creatinine 0.6, sodium 124, potassium 3.6, CO2 of 28, calcium 8.7. IMPRESSION: 1. Hyponatremia. This seems to be somewhat of a chronic problem. This may be related to medications such as hydrochlorothiazide, but it is not quite clear if she truly had been taking this. Syndrome of inappropriate antidiuretic hormone secretion is a possibility due to chronic pain as well as NSAIDs. She may have also an element of volume depletion contributing with her nausea and vomiting and possibly poor solute intake. 2. Severe anxiety. 3. Headache, which seems to be a chronic problem. 4. Hypertension. 5. Hypokalemia, which may be related to the poor oral intake and medications as well as vomiting. PLAN: 1. Continue IV fluids with normal saline. Would decrease the rate however a bit to avoid rapid correction of hyponatremia. We would recommend a rate of 70 mL per hour for now. If her potassium remains low, can add potassium to the IV [place], [place] REPORT OF CONSULTATION NAME: DANO RODARTE UNIT #: [id number] ROOM: [facility] DOCTOR: HOLLIS HERNANDEZ MD BIRTHDATE: [birth year] fluids. 2. Would discontinue hydrochlorothiazide indefinitely. 3. We would obtain a magnesium level. 4. Try to control her pain, although she may have some drug-seeking tendencies. 5. Follow labs daily. 6. Increase protein intake. Thank you for this consultation. We will follow. HOLLIS HERNANDEZ MD CM:CONSTR:REPORT OF CONSULTATION 1521 03/02/19 0007 interface
[2019-02-28 19:41] VITALS: BP 181/109
[2019-02-28 20:26] LABS: BASO % 0.3 % (0.0-1.0); EOS % 0.3 % (1.0-4.0); HEMATOCRIT 44.4 % (37.0-47.0); HEMOGLOBIN 14.9 g/dl (12.0-16.0); LYMPH # 1.1 10*3/uL (1.3-4.4); LYMPH % 11.6 % (27.0-41.0); MEAN CELL VOLUME 81.5 fl (81.0-99.0); MEAN CORPUSCULAR HGB 27.3 pg (27.0-31.0); MEAN CORPUSCULAR HGB CONC 33.6 g/dl (33.0-37.0); MEAN PLATELET VOLUME 9.3 fl (9.6-12.3); MONO # 0.8 10*3/uL (0.1-1.0); NEUT # 7.6 10*3/uL (2.3-7.9); NEUT % 79.5 % (47.0-73.0); PLATELET COUNT AUTOMATED 335 10*3/uL (130-400); RED BLOOD COUNT 5.45 10*6/uL (4.10-5.10); RED CELL DISTRI WIDTH 13.2 % (0-14.5); WHITE BLOOD COUNT 9.6 10*3/uL (4.8-10.8)
[2019-02-28 20:38] LABS: INTERNATIONAL NORM RATIO 0.9 (2.0-3.5)
[2019-02-28 21:04] LABS: ALBUMIN 3.5 gm/dl (3.1-4.5); BUN 6 mg/dl (7-24); CHLORIDE 81 mmol/L (98-107); CREATININE 0.59 mg/dL (0.55-1.02); SGOT/AST 14 IU/L (3-35); SGPT/ALT 21 U/L (12-78); SODIUM 123 mmol/L (136-145)
[2019-02-28 21:09] LABS: ALKALINE PHOSPHATASE 149 U/L (45-117); TOTAL PROTEIN 7.7 gm/dL (6.4-8.2)
[2019-02-28 21:11] LABS: POTASSIUM 2.3 mmol/L (3.5-5.1); TROPONIN I < 0.015 ng/ml (<0.045)
--- NOTE | 2019-02-28 21:11 | NUR ---
NOTFIED BY LAB PTS POTASSIUM 2.3, MIKE LEE NOTIFIED.
--- NOTE | 2019-02-28 21:54 | NUR ---
CONTACT NUMBER IF BEING DISCHARGED HOME, [phone]
[2019-02-28 22:45] VITALS: BP 160/90
--- NOTE | 2019-02-28 22:45 | NUR ---
A 68, admitted to , under the services of ROBERT Last DO with a diagnosis of HYPONATREMIA, HYPOKALEMIA. Chief complaint is HYPOKALEMIA AND HYPONATREMIA. Patient arrived via wheel chair from ER. Monitor applied. Initial assessment completed. Vital signs taken and recorded. ROBERT LAST DO notified of admission to the unit. Orders received. See assessment for past medical history, medications and allergies. Patient and/or family oriented to unit. [facility] visitation policy reviewed. Clothing/patient valuable form completed. RONDA FAROOQ
--- NOTE | 2019-02-28 23:00 | NUR ---
DR. ORTEGA HERE ON FLOOR TO EXAMINE PATIENT & DISCUSS PLAN OF CARE.
--- NOTE | 2019-02-28 23:30 | NUR ---
DR. ORTEGA INFORMED THAT PT. DOES NOT KNOW WHAT MEDICATIONS SHE TAKES. MEDICATIONS WILL HAVE TO BE UPDATED TOMORROW. PT'S USES [facility] IN [place].
[2019-03-01] VITALS: BP 162/74
--- NOTE | 2019-03-01 00:31 | NUR ---
PT'S LINWOOD IS STILL NOT PROFILED; CALLED [facility] & THEY STATED THAT THEY WOULD LOOK AT IT.
--- NOTE | 2019-03-01 01:01 | NUR ---
MEDICATED WITH NORVASC FOR ELEVATED BP PER M.D. ORDERS.
[2019-03-01 01:48] LABS: BUN 5 mg/dl (7-24); CHLORIDE 86 mmol/L (98-107); CREATININE 0.55 mg/dL (0.55-1.02); SODIUM 123 mmol/L (136-145)
[2019-03-01 01:53] LABS: FREE T4 0.89 ng/dl (0.76-1.46); PHOSPHOROUS 2.7 mg/dL (2.5-4.9)
[2019-03-01 01:55] LABS: BILIRUBIN NEGATIVE (NEGATIVE); BLOOD NEGATIVE (NEGATIVE); CLARITY CLEAR (CLEAR); COLOR YELLOW (YELLOW); GLUCOSE NEGATIVE (NEGATIVE); KETONE NEGATIVE (NEGATIVE); LEUKO ESTERASE TRACE (NEGATIVE); NITRITE NEGATIVE (NEGATIVE); SPECIFIC GRAVITY 1.015 (1.005-1.030)
[2019-03-01 02:00] LABS: EPITHELIAL CELLS 20-25
[2019-03-01 02:02] LABS: CARBAMAZEPINE (TEGRETOL) TOTAL 10.5 ug/ml (4-12)
[2019-03-01 02:08] LABS: POTASSIUM 3.4 mmol/L (3.5-5.1)
--- NOTE | 2019-03-01 02:50 | NUR ---
MEDICATED WITH KDUR PER M.D. ORDERS.
[2019-03-01 03:19] LABS: URINE AMPHETAMINES < 1000 (1000ng/ml); URINE BARBITURATES < 200 (200ng/ml); URINE BENZODIAZEPINES < 200 (200ng/ml); URINE CANNABINOIDS (THC) < 50 (50ng/ml); URINE COCAINE < 300 (300ng/ml); URINE METHADONE < 300 (300ng/ml); URINE OPIATES < 300 (300ng/ml)
[2019-03-01 03:24] LABS: URINE PHENCYCLIDINE < 25 (25ng/ml)
--- NOTE | 2019-03-01 03:30 | NUR ---
PT. C/O HER LEGS HURTING; INFORMED PT. THAT I WOULD CALL THE PHYSICIAN FOR PAIN MEDIATION.
[2019-03-01 06:26] LABS: BASO % 0.3 % (0.0-1.0); EOS % 0.5 % (1.0-4.0); HEMATOCRIT 44.4 % (37.0-47.0); HEMOGLOBIN 14.5 g/dl (12.0-16.0); LYMPH # 2.1 10*3/uL (1.3-4.4); MEAN CELL VOLUME 82.7 fl (81.0-99.0); MEAN CORPUSCULAR HGB CONC 32.7 g/dl (33.0-37.0); MEAN PLATELET VOLUME 9.3 fl (9.6-12.3); MONO # 0.6 10*3/uL (0.1-1.0); MONO % 7.4 % (3.0-9.0); NEUT % 64.4 % (47.0-73.0); PLATELET COUNT AUTOMATED 273 10*3/uL (130-400); RED BLOOD COUNT 5.37 10*6/uL (4.10-5.10); RED CELL DISTRI WIDTH 13.2 % (0-14.5); WHITE BLOOD COUNT 7.7 10*3/uL (4.8-10.8)
[2019-03-01 06:40] LABS: BUN 5 mg/dl (7-24); CHLORIDE 90 mmol/L (98-107); CREATININE 0.61 mg/dL (0.55-1.02); POTASSIUM 3.6 mmol/L (3.5-5.1); SODIUM 124 mmol/L (136-145)
--- NOTE | 2019-03-01 06:45 | NUR ---
MEDICATED WITH REQUIP FOR C/O RESTLESS LEGS.
[2019-03-01 08:00] VITALS: BP 178/82
--- NOTE | 2019-03-01 09:35 | NUR ---
NORCO 5/325MG GIVEN FOR COMPLAINTS OF PAIN. PATIENT TEARFUL, LABILE AND UNABLE TO RATE AT THIS TIME. EMOTIONAL SUPPORT PROVIDED. WHITE BOARD UPDATED. DECREASED EXTERNAL STIMULI. VOICES NO OTHER NEEDS AT THIS TIME. CALL LIGHT WITHIN REACH.
--- NOTE | 2019-03-01 10:15 | NUR ---
NOTIFIED [facility] OF NEW CONSULT.
[2019-03-01] MEDS ORDERED: ONDANSETRON ODT8 MG PO (11:11)
[2019-03-01] MEDS ORDERED: METOPROLOL SUC100 M1 PO (11:13)
[2019-03-01] MEDS ORDERED: ATARAX,VISTARIL50 MG PO (11:16)
[2019-03-01] MEDS ORDERED: BUSPAR15 MG PO (11:17)
[2019-03-01] MEDS ORDERED: GLIPIZIDE5 MG PO (11:23)
[2019-03-01] MEDS ORDERED: IBU800 MG PO (11:35)
[2019-03-01] MEDS ORDERED: Tegretol100 MG/5 M PO (11:38)
--- NOTE | 2019-03-01 11:38 | NUR ---
MEDS RECONCILED WITH MED CLAIM HISTORY.NOTIFIED DR RENDON.
[2019-03-01 12:00] VITALS: BP 175/79
--- NOTE | 2019-03-01 13:44 | NUR ---
ATIVAN 0.5 MG GIVEN FOR C/O ANXIETY.PT TEARFUL BUT CALMER THAN PREVIOUSLY.EMOTIONAL SUPPRT PROVIDED.EDUCATION REGARDING RELAXTION TECHNIQUES PROVIDED AT THIS TIME.VOICES NO OTHER NEEDS AT THIS TIME. CALL LIGHT IN REACH.
[2019-03-01 16:00] VITALS: BP 170/93
--- NOTE | 2019-03-01 20:00 | NUR ---
MEDICATED WITH NORCO FOR C/O LEG & FEET PAIN. PT. IS TEARFUL & VERY LABILE.
--- NOTE | 2019-03-01 20:10 | NUR ---
PT. PUT LIGHT ON AGAIN & IS INQUIRING TO WHEN SHE CAN HAVE HER NAUSEA MEDICATIONS. CONTINUES TO BE TEARFUL. INFORMED PATIENT THAT IT WAS TOO EARLY FOR HER ZOFRAN. VERBALIZED UNDERSTANDING. CALL LIGHT WITHIN REACH.
--- NOTE | 2019-03-01 21:25 | NUR ---
PT. PULLED IV OUT. INFORMED HER OF NEED TO RESTART IV.
--- NOTE | 2019-03-01 21:30 | NUR ---
IV started left forearm with #22 protective cath after 2 attempts. Site prepped with Chloroprep. Sterile dressing applied. Patient tolerated procedure well. IV infusing at NS 125 cc/hr. RONDA FAROOQ
--- NOTE | 2019-03-01 21:54 | NUR ---
MEDICATED WITH ZOFRAN FOR C/O NAUSEA.
--- NOTE | 2019-03-01 22:00 | NUR ---
MEDICATED WITH VISTARIL FOR C/O ANXIETY.
--- NOTE | 2019-03-01 23:28 | NUR ---
MEDICATED WITH ATIVAN FOR ANXIETY & NORCO FOR C/O FEET & LEG PAIN.
[2019-03-02] VITALS: BP 160/80
--- NOTE | 2019-03-02 00:30 | NUR ---
PT. OUT OF BED & AMBULATING IN THE [place]EN BECAUSE SHE STATES THAT SHE CANNOT SLEEP & THAT SHE IS HAVING PAIN. ASSISTED PT. BACK TO HER ROOM. PT. IS VERY NEEDY & CONSTANTLY ASKING FOR PAIN MEDICATION. EXPLAINED TO HER THAT SHE ALREADY RECEIVED HER MEDICATIONS. PT. REMAINS UNCOOPERATIVE. ASSISTED BACK TO BED. BED ALARM ON & BED IS IN LOW LOCKED POSITION. CALL LIGHT WITHIN REACH.
--- NOTE | 2019-03-02 02:00 | NUR ---
OUT OF BED MULTIPLE TIMES TO GET UP TO BSC. NONCOMPLIANT WITH FLUID INTAKE. TOOK PITCHER AWAY.
--- NOTE | 2019-03-02 03:30 | NUR ---
RESTING IN BED AT THIS TIME. BED ALARM ON; CALL LIGHT WITHIN REACH.
[2019-03-02 06:17] LABS: BASO % 0.3 % (0.0-1.0); EOS # 0.1 10*3/uL (0.0-0.4); EOS % 1.2 % (1.0-4.0); HEMATOCRIT 40.6 % (37.0-47.0); HEMOGLOBIN 12.8 g/dl (12.0-16.0); LYMPH # 2.7 10*3/uL (1.3-4.4); LYMPH % 45.1 % (27.0-41.0); MEAN CELL VOLUME 85.3 fl (81.0-99.0); MEAN CORPUSCULAR HGB 26.9 pg (27.0-31.0); MEAN CORPUSCULAR HGB CONC 31.5 g/dl (33.0-37.0); MEAN PLATELET VOLUME 9.6 fl (9.6-12.3); MONO # 0.7 10*3/uL (0.1-1.0); MONO % 11.4 % (3.0-9.0); NEUT # 2.5 10*3/uL (2.3-7.9); NEUT % 41.7 % (47.0-73.0); PLATELET COUNT AUTOMATED 274 10*3/uL (130-400); RED BLOOD COUNT 4.76 10*6/uL (4.10-5.10); RED CELL DISTRI WIDTH 13.2 % (0-14.5)
[2019-03-02 06:45] LABS: BUN 5 mg/dl (7-24); CHLORIDE 101 mmol/L (98-107); CREATININE 0.48 mg/dL (0.55-1.02); POTASSIUM 3.1 mmol/L (3.5-5.1); SODIUM 135 mmol/L (136-145)
--- NOTE | 2019-03-02 06:48 | NUR ---
TYLENOL 650 MG GIVEN FOR C/O BLE PAIN,04/17. PT LABILE, TEARFUL. REFUSING TO GO TO HER BED. EMOTIONAL SUPPORT PROVIDED. PT SITTING UP AT BEDSIDE IN CHAIR.LIGHTS TURN DOWN. VOICES NO OTHER NEEDS AT THIS TIME.CALL LIGHT IN REACH.
--- NOTE | 2019-03-02 07:46 | NUR ---
ATIVAN 1 MG GIVEN PER PT REQUEST FOR ANXIETY.
[2019-03-02 08:00] VITALS: BP 158/82
--- NOTE | 2019-03-02 08:03 | NUR ---
NOTIFIED DR MOTA OF NEW CONSULT FOR COMPETENCY AND ANXIETY.
--- NOTE | 2019-03-02 10:02 | NUR ---
PATIENT COMPLAINTS OF PAIN "ALL OVER". MEDICATED PER ORDER. PATIENT NOW RESTING IN BED. CALL LIGHT WITHIN REACH. VOICES NO OTHER CONCERNS AT THIS TIME.
--- NOTE | 2019-03-02 11:27 | NUR ---
DR WEINSTEIN ROUNDED AND SEEN PT.ORDERS RECIEVED.
--- NOTE | 2019-03-02 11:27 | NUR ---
PT AMBULATING HALLWAYS WITHOUT DIFFICULTY. VOICES NO OTHER NEEDS.TOLERATING WELL. CALL LIGHT IN REACH.
[2019-03-02 12:00] VITALS: BP 145/87
--- NOTE | 2019-03-02 14:00 | NUR ---
PATIENT COMPLAINTS OF PAIN 01/15 "ALL OVER". MEDICATED PER ORDER. PATIENT RESTING IN BED. CALL LIGHT WITHIN REACH. VERBALIZES RELIEF. VOICES NO OTHER CONCERNS AT THIS TIME.
--- NOTE | 2019-03-02 15:34 | NUR ---
ATIVAN 1 MG GIVEN FOR C/O ANXIETY.
[2019-03-02 16:00] VITALS: BP 146/83
--- NOTE | 2019-03-02 16:41 | NUR ---
Hep Lock discontinued. Site asymptomatic. Pressure applied. Sterile dressing applied. JEFF GALLO
--- NOTE | 2019-03-02 16:43 | NUR ---
PT LEFT AGAINST MEDICAL ADVICE. ENCOURAGED PT TO STAY.EDUCATION PROVIDED R/T TO LEAVING AGAINST MEDICAL ADVICE.NOTIFIED DR RENDON.
== END 2019-03-02 16:43 | disposition left against medical advice (07) | DRG 641 ==
LOC: ED 19:40 → 5E 21:28 → EDHOLD 21:28 → 5E 22:01
PROVIDERS: Family Medicine; Physician Assistant; Student in an Organized Health Care Education/Training Program; ADMIT Emergency Medicine
DX: E87.1 Hypo-osmolality and hyponatremia (principal); E87.6 Hypokalemia; E89.0 Postprocedural hypothyroidism; Z53.21 Procedure and treatment not carried out due to patient leaving prior to being seen by health care provider; J44.9 Chronic obstructive pulmonary disease, unspecified; K21.9 Gastro-esophageal reflux disease without esophagitis; I10 Essential (primary) hypertension; R25.1 Tremor, unspecified; K66.0 Peritoneal adhesions (postprocedural) (postinfection); E11.65 Type 2 diabetes mellitus with hyperglycemia; E66.3 Overweight; F17.210 Nicotine dependence, cigarettes, uncomplicated; E78.5 Hyperlipidemia, unspecified; I48.91 Unspecified atrial fibrillation; G89.29 Other chronic pain; R51 Headache; M47.896 Other spondylosis, lumbar region; M47.895 Other spondylosis, thoracolumbar region; F32.9 Major depressive disorder, single episode, unspecified; F41.1 Generalized anxiety disorder; G47.33 Obstructive sleep apnea (adult) (pediatric); F41.0 Panic disorder [episodic paroxysmal anxiety]; Z88.0 Allergy status to penicillin; Z88.8 Allergy status to other drugs, medicaments and biological substances; Z88.6 Allergy status to analgesic agent; Z90.49 Acquired absence of other specified parts of digestive tract; Z90.710 Acquired absence of both cervix and uterus; Z82.49 Family history of ischemic heart disease and other diseases of the circulatory system; Z83.3 Family history of diabetes mellitus; Z79.899 Other long term (current) drug therapy; Z79.84 Long term (current) use of oral hypoglycemic drugs; T50.995S Adverse effect of other drugs, medicaments and biological substances, sequela; Z68.25 Body mass index [BMI] 25.0-25.9, adult

== ENCOUNTER 2019-03-12 17:20 | Inpatient (IN) | payer OTHER ==
[~2019-03-12] VITALS: Ht 157.4 cm; Wt 65.1 kg
[~2019-03-12 17:20] MED LIST changes: +ATARAX,VISTARIL50 MG PO; +IBU800 MG PO; +METOPROLOL SUC100 M1 PO; +ONDANSETRON ODT8 MG PO
[2019-03-12 17:22] VITALS: BP 187/95
[2019-03-12 17:58] LABS: BASO % 0.3 % (0.0-1.0); EOS # 0.1 10*3/uL (0.0-0.4); EOS % 0.8 % (1.0-4.0); HEMATOCRIT 42.7 % (37.0-47.0); HEMOGLOBIN 14.3 g/dl (12.0-16.0); LYMPH # 3.1 10*3/uL (1.3-4.4); LYMPH % 24.1 % (27.0-41.0); MEAN CELL VOLUME 82.1 fl (81.0-99.0); MEAN CORPUSCULAR HGB 27.5 pg (27.0-31.0); MEAN CORPUSCULAR HGB CONC 33.5 g/dl (33.0-37.0); MEAN PLATELET VOLUME 8.9 fl (9.6-12.3); MONO # 0.8 10*3/uL (0.1-1.0); MONO % 6.5 % (3.0-9.0); NEUT # 8.7 10*3/uL (2.3-7.9); NEUT % 67.8 % (47.0-73.0); PLATELET COUNT AUTOMATED 362 10*3/uL (130-400); RED CELL DISTRI WIDTH 13.1 % (0-14.5); WHITE BLOOD COUNT 12.9 10*3/uL (4.8-10.8)
--- NOTE | 2019-03-12 17:58 | NUR ---
PT REPORTS ATIVAN WAS EFFECTIVE FOR ANXIETY.
[2019-03-12 18:15] LABS: ALBUMIN 3.4 gm/dl (3.1-4.5); ALKALINE PHOSPHATASE 126 U/L (45-117); BUN 8 mg/dl (7-24); CHLORIDE 85 mmol/L (98-107); CREATININE 0.71 mg/dL (0.55-1.02); SGOT/AST 13 IU/L (3-35); SODIUM 125 mmol/L (136-145); TOTAL PROTEIN 7.6 gm/dL (6.4-8.2)
[2019-03-12 18:20] LABS: SGPT/ALT 24 U/L (12-78)
[2019-03-12 18:21] LABS: POTASSIUM 2.3 mmol/L (3.5-5.1)
--- NOTE | 2019-03-12 18:22 | NUR ---
TIANA LEE AWARE OF PT'S CRITICAL K+ OF 2.3
--- NOTE | 2019-03-12 19:14 | NUR ---
NURSE TO NURSE REPORT GIVEN TO THIS RN.PT AWAITING ROOM ASSIGNMENT FOR ADMISSION.INFUSION OF POTASSIUM AND NS INITIATED.INFUSION OF POTASSIUM TITRATED TO 25ML/HR DUE TO PT COMPLAINT OF PAIN AND INFUSION NS INCREASED.WILL CONTINUE TO MONITOR.
[2019-03-12 19:17] VITALS: BP 180/93
[2019-03-12 20:50] VITALS: BP 175/80
[2019-03-12 21:00] VITALS: BP 174/78
--- NOTE | 2019-03-12 21:00 | NUR ---
Time: 2099 A 68 year old FEMALE admitted to 5E under services of JOSE ELIAS CALDERA DO. Pt. arrived via stretcher from ER. Chief complaint: "MY NERVES ARE ACTING UP & I CAN'T TAKE IT". C/O ANXIETY, FEELING SCARED & SHAKING, HEADACHE, & CRYING. IMAN THOMAS
--- NOTE | 2019-03-12 21:23 | NUR ---
UNABLE TO COMPLETE MED REC PATIENT DOES NOT KNOW MEDICATIONS.
--- NOTE | 2019-03-12 21:40 | NUR ---
CONSULT FOR CALLED TO [facility]. INFORMATION LEFT WITH RN.
--- NOTE | 2019-03-12 21:56 | NUR ---
NOTIFIED OF PT'S C/O BURNING W/ IV POTASSIUM ADMINISTRATION. RATE TURNED DOWN TO 5 ML/HR PT CANNOT TOLERATE EVEN THIS RATE. INSTRUCTED TO ORDER 500 CC BAG OF NSS AND RUN @ 100 ML/HR TO DILUTE POTASSIUM. MADE AWARE OF BP 174/78 AT THIS TIME. CONTINUE WITH CURRENT ORDERS.
--- NOTE | 2019-03-12 22:20 | NUR ---
IV started right hand with #24 angiocath after 2 attempts. The IV site was prepped with Chloraprep. Heparin lock attached. Sterile dressing applied. Patient tolerated precedure well. Procedure performed according to [facility] policy & procedure. JANEL LOCK
--- NOTE | 2019-03-12 23:55 | NUR ---
K RUN & MAG RUN COMPLETE AT THIS TIME. 200 CCs OF NSS INFUSED TO DILUTE POTASSIUM. 300 CCs REMAIN IN BAG.
--- NOTE | 2019-03-12 23:56 | NUR ---
K RUN & MAG RUN COMPLETE AT THIS TIME. 200 CCs OF NSS INFUSED TO DILUTE POTASSIUM. 300 CCs REMAIN IN BAG. IVF D/Veto AT THIS TIME THEY WERE ORDERED ONLY TO DILUTE POTASSIUM.
[2019-03-13] VITALS: BP 140/80; BP 143/81
[2019-03-13 06:33] LABS: BASO % 0.3 % (0.0-1.0); EOS # 0.1 10*3/uL (0.0-0.4); EOS % 1.3 % (1.0-4.0); HEMATOCRIT 40.1 % (37.0-47.0); LYMPH # 2.8 10*3/uL (1.3-4.4); LYMPH % 29.2 % (27.0-41.0); MEAN CORPUSCULAR HGB 26.9 pg (27.0-31.0); MEAN CORPUSCULAR HGB CONC 32.4 g/dl (33.0-37.0); MONO # 0.6 10*3/uL (0.1-1.0); MONO % 6.3 % (3.0-9.0); NEUT % 62.5 % (47.0-73.0); PLATELET COUNT AUTOMATED 321 10*3/uL (130-400); RED BLOOD COUNT 4.83 10*6/uL (4.10-5.10); RED CELL DISTRI WIDTH 13.2 % (0-14.5); WHITE BLOOD COUNT 9.6 10*3/uL (4.8-10.8)
[2019-03-13 06:34] LABS: ALBUMIN 2.8 gm/dl (3.1-4.5); BUN 8 mg/dl (7-24); CHLORIDE 92 mmol/L (98-107); POTASSIUM 2.7 mmol/L (3.5-5.1); SODIUM 129 mmol/L (136-145)
[2019-03-13 06:43] LABS: ALKALINE PHOSPHATASE 119 U/L (45-117); CHOLESTEROL 178 mg/dL (<200); CREATININE 0.53 mg/dL (0.55-1.02); HDL CHOLESTEROL 41 mg/dl (40-60); LDL CHOLESTEROL 114 mg/dL (9-159); PHOSPHOROUS 3.4 mg/dL (2.5-4.9); SGOT/AST 10 IU/L (3-35); SGPT/ALT 15 U/L (12-78); TOTAL PROTEIN 6.4 gm/dL (6.4-8.2); TRIGLYCERIDES 116 mg/dl (<150); VLDL CHOLESTEROL 23 mg/dL (6-40)
[2019-03-13 06:51] LABS: INTERNATIONAL NORM RATIO 0.9 (2.0-3.5)
[2019-03-13 07:08] LABS: BILIRUBIN NEGATIVE (NEGATIVE); BLOOD NEGATIVE (NEGATIVE); CLARITY SL CLOUDY (CLEAR); COLOR YELLOW (YELLOW); GLUCOSE NEGATIVE (NEGATIVE); KETONE NEGATIVE (NEGATIVE); LEUKO ESTERASE NEGATIVE (NEGATIVE); NITRITE NEGATIVE (NEGATIVE); SPECIFIC GRAVITY 1.015 (1.005-1.030)
[2019-03-13 07:31] LABS: BACTERIA 1+
[2019-03-13 07:32] LABS: EPITHELIAL CELLS 15-20; YEAST TRACE
--- NOTE | 2019-03-13 09:16 | NUR ---
DR. BARBOSA IN TO SEE PATIENT. AWARE THAT PATIENT COMPLAIN OF ANXIETY AND "SHAKING ALL OVER" AT THIS TIME
--- NOTE | 2019-03-13 09:44 | NUR ---
CALLED PATIENTS PHARMACY, [facility] IN [place] - THEY WILL FAX CURRENT PATIENT MEDICATION LIST
[2019-03-13] MEDS ORDERED: METOPROLOL SUCC50 M2 PO (10:07)
[2019-03-13] MEDS ORDERED: Tegretol100 MG/5 M PO ×2 (10:12→10:14)
--- NOTE | 2019-03-13 10:23 | NUR ---
PT GIVEN IV ATIVAN FOR COMPLAINT OF ANXIETY
--- NOTE | 2019-03-13 11:15 | NUR ---
PT STATES ATIVAN HELPED "SOME", PT LESS ANXIOUS AND LESS "SHAKEY"
--- NOTE | 2019-03-13 11:58 | NUR ---
Coverstitch Elastic Attacher in to talk to patient. Patient states lives at HOME with SON AND DAUGHTER IN [place]. There are NO steps in the home. Physician: AMNA [facility]acy: [facility] Home health services: NONE Patient's level of ADLs: INDEPENDENT Patient has working utilities: YES DME: NONE Follow-up physician's appointment after d/c: WILL BE MADE BY HOSPITALIST NURSE DIRECTOR ON DISCHARGE Does patient want to access PORTAL?: NO Discharge plan PT LIVES AT HOME WITH HER SON AND DAUGHTER IN [place]. SHE IS INDEPENEDENT IN HER CARE. PLANS TO RETURN HOME ON DISCHARGE AND STATES SHE WILL HAVE NO NEW NEEDS. WILL CONTINUE TO FOLLOW. STATES SHE WILL HAVE A RIDE HOME ON DISCHARGE.. GERA DERAS
[2019-03-13 12:00] VITALS: BP 153/77
--- NOTE | 2019-03-13 14:05 | NUR ---
PT COMPLAINING OF AMXOETU. VISTARIL GIVEN.
[2019-03-13 16:00] VITALS: BP 176/91
--- NOTE | 2019-03-13 16:25 | NUR ---
PT COMPLAIN OF GENERALIZED ACHE AND HEADACHE, NORCO GIVEN.
[2019-03-13 20:00] VITALS: BP 175/84
--- NOTE | 2019-03-13 20:41 | NUR ---
PT IS COMPLAINING OF ANXIETY AND PAIN. VISTARIL AND NORCO GIVEN AT THIS TIME. WILL MONITOR FOR EFFECTIVENESS. CALL LIGHT. ALL SAFETY MEASURES IN PLACE.
[2019-03-13 20:42] VITALS: BP 182/80
[2019-03-13 21:20] VITALS: BP 160/74
--- NOTE | 2019-03-13 21:41 | NUR ---
VISTARIL AND NORCO EFFECTIVE PER PT.
--- NOTE | 2019-03-13 22:20 | NUR ---
NOTIFIED DR KAY THAT PT IS COMPLANING OF GENERALIZED PAIN ALL OVER HER BODY. PT OFFERED TYLENOL BUT REFUSES TO TRY SHE STATES THAT SHE KNOWS IT WILL NOT WORK. DR KAY STATES THAT SHE WILL COME UP TO FLOOR TO SEE PATIENT.
--- NOTE | 2019-03-13 23:49 | NUR ---
PT GIVEN MORPHINE 2 MG AT THIS TIME FOR C/O GENERALIZED PAIN. WILL MONITOR FOR EFFECTIVENESS. PT LYING IN BED, RESPIRATIONS EASY AND UNLABORED, CALL LIGHT IN REACH.
[2019-03-14] VITALS: BP 122/82
--- NOTE | 2019-03-14 00:49 | NUR ---
MORPHINE EFFECTIVE PER PT.
--- NOTE | 2019-03-14 04:53 | NUR ---
PT GIVEN NORCO AT THIS TIME FOR C/O PAIN TO BILATERAL LEGS. PT RATES PAIN A 10. WILL MONITOR FOR EFFECTIVENESS. PT SITTING UP IN BED, CALL LIGHT IN REACH.
[2019-03-14 08:00] VITALS: BP 182/90
[2019-03-14 09:20] LABS: BASO % 0.5 % (0.0-1.0); EOS # 0.2 10*3/uL (0.0-0.4); HEMATOCRIT 42.2 % (37.0-47.0); HEMOGLOBIN 13.1 g/dl (12.0-16.0); LYMPH # 3.1 10*3/uL (1.3-4.4); LYMPH % 38.9 % (27.0-41.0); MEAN CELL VOLUME 85.9 fl (81.0-99.0); MEAN CORPUSCULAR HGB 26.7 pg (27.0-31.0); MEAN PLATELET VOLUME 9.4 fl (9.6-12.3); MONO # 0.7 10*3/uL (0.1-1.0); MONO % 8.1 % (3.0-9.0); NEUT % 50.2 % (47.0-73.0); PLATELET COUNT AUTOMATED 324 10*3/uL (130-400); RED BLOOD COUNT 4.91 10*6/uL (4.10-5.10); RED CELL DISTRI WIDTH 13.2 % (0-14.5)
[2019-03-14 09:31] LABS: BUN 11 mg/dl (7-24); CHLORIDE 99 mmol/L (98-107)
[2019-03-14 09:51] LABS: SODIUM 132 mmol/L (136-145)
[2019-03-14 09:56] LABS: POTASSIUM 4.1 mmol/L (3.5-5.1)
--- NOTE | 2019-03-14 10:56 | NUR ---
PT WILL RETURN HOME WITH HER SON AND DAUGHTER IN LAW WITH NO NEEDS. WILL CONTINUE TO FOLLOW.
[2019-03-14 12:00] VITALS: BP 142/80
[2019-03-14] MEDS ORDERED: DULOXETINE HCL30 MG PO (12:12)
--- NOTE | 2019-03-14 12:40 | NUR ---
RECEIVED A CALL FROM CUONG ARIZA THAT PT WAS REQUESTING TO FOLLOW UP AT [facility] IN [place]. LOOKED UP NUMBER AND ADDRESS AND WENT TO TALK WITH PT. SHE PREFERS TO MAKE HER OWN APPOINTMENT SO SHE KNOWS SHE HAS A WAY TO GET THERE. PHONE NUMBER LEFT WITH PT.
--- NOTE | 2019-03-14 13:30 | NUR ---
Discharge instructions reviewed with patient/family. Patient receptive and verbalizes understanding. Follow-up care arranged. Written instructions given to patient/family. ANDREW TAVERAS
[2019-05-26] MEDS ORDERED: LEVOTHYROXINE50 MCG PO (10:26)
[2019-05-26] MEDS ORDERED: GLIPIZIDE5 MG PO (10:27)
[2019-05-26] MEDS ORDERED: AMLODIPINE BESYL5 MG PO (10:27)
[2019-05-26] MEDS ORDERED: LISINOPRIL40 MG PO (10:28)
[2019-05-26] MEDS ORDERED: KLONOPIN1 M1 PO ×2 (10:30→10:34)
[2019-05-26] MEDS ORDERED: KLONOPIN0.5 MG PO (10:31)
[2019-05-26] MEDS ORDERED: BUSPIRONE HCL15 MG PO (10:32)
[2019-05-26] MEDS ORDERED: LORAZEPAM1 MG PO (10:36)
[2019-05-26] MEDS ORDERED: CLARITIN10 MG PO (10:37)
[2019-05-26] MEDS ORDERED: MAGNESIUM OXID400 MG PO (10:38)
[2019-05-26] MEDS ORDERED: 24 HOUR ALLER15.8 ML NAS (10:39)
[2019-05-26] MEDS ORDERED: KLOR-CON M2020 ME1 PO (10:40)
[2019-05-26] MEDS ORDERED: HYDROXYZINE HCL50 MG PO (10:42)
[2019-05-26] MEDS ORDERED: NATURE'S BLEND F1 MG PO (10:42)
[2019-05-30] MEDS ORDERED: LEVAQUIN750 M1 PO (11:42)
== END 2019-03-14 13:30 | disposition home or self-care (01) | DRG 641 ==
LOC: ED 17:20 → 5E 18:38 → EDHOLD 18:38 → 5E 20:27
PROVIDERS: Internal Medicine; Physician Assistant; Student in an Organized Health Care Education/Training Program; ADMIT Internal Medicine
DX: E87.6 Hypokalemia (principal); R65.10 Systemic inflammatory response syndrome (SIRS) of non-infectious origin without acute organ dysfunction; F41.0 Panic disorder [episodic paroxysmal anxiety]; F41.1 Generalized anxiety disorder; E83.42 Hypomagnesemia; E87.1 Hypo-osmolality and hyponatremia; R51 Headache; E89.0 Postprocedural hypothyroidism; F17.210 Nicotine dependence, cigarettes, uncomplicated; I48.91 Unspecified atrial fibrillation; G89.29 Other chronic pain; J44.9 Chronic obstructive pulmonary disease, unspecified; M51.35 Other intervertebral disc degeneration, thoracolumbar region; M47.816 Spondylosis without myelopathy or radiculopathy, lumbar region; F32.9 Major depressive disorder, single episode, unspecified; I10 Essential (primary) hypertension; K21.9 Gastro-esophageal reflux disease without esophagitis; E11.65 Type 2 diabetes mellitus with hyperglycemia; E53.8 Deficiency of other specified B group vitamins; F17.218 Nicotine dependence, cigarettes, with other nicotine-induced disorders; G47.33 Obstructive sleep apnea (adult) (pediatric); R25.1 Tremor, unspecified; E87.8 Other disorders of electrolyte and fluid balance, not elsewhere classified; D72.810 Lymphocytopenia; D72.829 Elevated white blood cell count, unspecified; E55.9 Vitamin D deficiency, unspecified; Z88.0 Allergy status to penicillin; Z83.3 Family history of diabetes mellitus; Z82.49 Family history of ischemic heart disease and other diseases of the circulatory system; Z88.8 Allergy status to other drugs, medicaments and biological substances; Z79.899 Other long term (current) drug therapy; Z90.49 Acquired absence of other specified parts of digestive tract; Z90.89 Acquired absence of other organs; Z90.710 Acquired absence of both cervix and uterus; Z94.9 Transplanted organ and tissue status, unspecified; Z71.6 Tobacco abuse counseling

== ENCOUNTER 2019-03-21 12:03 | Emergency (ER) | payer OTHER ==
[~2019-03-21] VITALS: Ht 157.4 cm; Wt 63.5 kg
[2019-03-21 12:03] VITALS: BP 163/87
[~2019-03-21 12:03] MED LIST changes: +DULOXETINE HCL30 MG PO; +METOPROLOL SUCC50 M2 PO
[2019-03-21] MEDS ORDERED: ATARAX,VISTARIL50 MG PO (13:45)
[2019-05-26] MEDS ORDERED: LEVOTHYROXINE50 MCG PO (10:26)
[2019-05-26] MEDS ORDERED: GLIPIZIDE5 MG PO (10:27)
[2019-05-26] MEDS ORDERED: AMLODIPINE BESYL5 MG PO (10:27)
[2019-05-26] MEDS ORDERED: LISINOPRIL40 MG PO (10:28)
[2019-05-26] MEDS ORDERED: KLONOPIN1 M1 PO ×2 (10:30→10:34)
[2019-05-26] MEDS ORDERED: KLONOPIN0.5 MG PO (10:31)
[2019-05-26] MEDS ORDERED: BUSPIRONE HCL15 MG PO (10:32)
[2019-05-26] MEDS ORDERED: LORAZEPAM1 MG PO (10:36)
[2019-05-26] MEDS ORDERED: CLARITIN10 MG PO (10:37)
[2019-05-26] MEDS ORDERED: MAGNESIUM OXID400 MG PO (10:38)
[2019-05-26] MEDS ORDERED: 24 HOUR ALLER15.8 ML NAS (10:39)
[2019-05-26] MEDS ORDERED: KLOR-CON M2020 ME1 PO (10:40)
[2019-05-26] MEDS ORDERED: HYDROXYZINE HCL50 MG PO (10:42)
[2019-05-26] MEDS ORDERED: NATURE'S BLEND F1 MG PO (10:42)
[2019-05-30] MEDS ORDERED: LEVAQUIN750 M1 PO (11:42)
== END 2019-03-21 13:50 | disposition home or self-care (01) ==
LOC: ED 12:03
DX: F41.9 Anxiety disorder, unspecified (principal); I48.2 Chronic atrial fibrillation; G89.29 Other chronic pain; J44.9 Chronic obstructive pulmonary disease, unspecified; I10 Essential (primary) hypertension; K21.9 Gastro-esophageal reflux disease without esophagitis; E03.9 Hypothyroidism, unspecified; E11.9 Type 2 diabetes mellitus without complications; F17.210 Nicotine dependence, cigarettes, uncomplicated; Z90.710 Acquired absence of both cervix and uterus; Z90.49 Acquired absence of other specified parts of digestive tract; Z88.8 Allergy status to other drugs, medicaments and biological substances; Z88.0 Allergy status to penicillin; Z79.899 Other long term (current) drug therapy

== ENCOUNTER 2019-03-31 19:21 | Inpatient (IN) | payer OTHER ==
[~2019-03-31] VITALS: Ht 157.4 cm; Wt 63.2 kg
[2019-03-31 19:24] VITALS: BP 134/83
[2019-03-31 20:32] LABS: BASO % 0.3 % (0.0-1.0); EOS # 0.1 10*3/uL (0.0-0.4); EOS % 1.3 % (1.0-4.0); HEMATOCRIT 44.8 % (37.0-47.0); HEMOGLOBIN 14.2 g/dl (12.0-16.0); LYMPH # 3.3 10*3/uL (1.3-4.4); LYMPH % 34.7 % (27.0-41.0); MEAN CELL VOLUME 83.9 fl (81.0-99.0); MEAN CORPUSCULAR HGB 26.6 pg (27.0-31.0); MEAN CORPUSCULAR HGB CONC 31.7 g/dl (33.0-37.0); MONO # 0.6 10*3/uL (0.1-1.0); MONO % 6.5 % (3.0-9.0); NEUT # 5.4 10*3/uL (2.3-7.9); NEUT % 57.1 % (47.0-73.0); PLATELET COUNT AUTOMATED 378 10*3/uL (130-400); RED BLOOD COUNT 5.34 10*6/uL (4.10-5.10); RED CELL DISTRI WIDTH 13.5 % (0-14.5); WHITE BLOOD COUNT 9.4 10*3/uL (4.8-10.8)
[2019-03-31 20:49] LABS: ALBUMIN 3.1 gm/dl (3.1-4.5); ALKALINE PHOSPHATASE 125 U/L (45-117); BUN 6 mg/dl (7-24); CHLORIDE 98 mmol/L (98-107); CREATININE 0.78 mg/dL (0.55-1.02); SGOT/AST 15 IU/L (3-35); SGPT/ALT 16 U/L (12-78); SODIUM 136 mmol/L (136-145); TOTAL PROTEIN 7.3 gm/dL (6.4-8.2)
[2019-03-31 20:52] LABS: TROPONIN I < 0.015 ng/ml (<0.045)
[2019-03-31 20:53] LABS: POTASSIUM 2.3 mmol/L (3.5-5.1)
--- NOTE | 2019-03-31 20:53 | NUR ---
K+ LEVEL 2.3. B. ZOELLARS NOTIFIED.
[2019-03-31 21:00] VITALS: BP 143/72
[2019-03-31 21:13] LABS: BILIRUBIN NEGATIVE (NEGATIVE); BLOOD NEGATIVE (NEGATIVE); CLARITY SL CLOUDY (CLEAR); COLOR YELLOW (YELLOW); GLUCOSE NEGATIVE (NEGATIVE); KETONE NEGATIVE (NEGATIVE); LEUKO ESTERASE 1+ (NEGATIVE); NITRITE NEGATIVE (NEGATIVE); PH 7.5 (5.0-9.0); SPECIFIC GRAVITY 1.015 (1.005-1.030)
[2019-03-31 21:17] LABS: BACTERIA 1+
[2019-03-31 21:26] LABS: URINE AMPHETAMINES < 1000 (1000ng/ml); URINE BARBITURATES < 200 (200ng/ml); URINE BENZODIAZEPINES < 200 (200ng/ml); URINE CANNABINOIDS (THC) < 50 (50ng/ml); URINE COCAINE < 300 (300ng/ml); URINE METHADONE < 300 (300ng/ml); URINE OPIATES < 300 (300ng/ml)
[2019-03-31 21:27] LABS: URINE PHENCYCLIDINE < 25 (25ng/ml)
[2019-03-31 23:10] VITALS: BP 159/79
--- NOTE | 2019-03-31 23:33 | NUR ---
A 68, admitted to , under the services of THERESE Robles DO with a diagnosis of ANXIETY, HYPOKALEMIA, HYPOMAGNESEMIA. Chief complaint is SUBSTANCE ABUSE WITHDRAWAL. Patient arrived via ambulatory from ER. Monitor applied. Initial assessment completed. Vital signs taken and recorded. THERESE ROBLES DO notified of admission to the unit. Orders received. See assessment for past medical history, medications and allergies. Patient and/or family oriented to unit. [facility] visitation policy reviewed. Clothing/patient valuable form completed. EDUARDO WRIGHT
[2019-04-01] VITALS: BP 180/79
--- NOTE | 2019-04-01 04:23 | NUR ---
TYLENOL GIVEN FOR GENERALIZED PAIN RATED 7/10.
[2019-04-01 07:16] LABS: BASO # 0.1 10*3/uL (0.0-0.1); BASO % 0.6 % (0.0-1.0); EOS # 0.1 10*3/uL (0.0-0.4); EOS % 1.8 % (1.0-4.0); HEMATOCRIT 42.1 % (37.0-47.0); LYMPH # 3.3 10*3/uL (1.3-4.4); LYMPH % 42.2 % (27.0-41.0); MEAN CELL VOLUME 86.1 fl (81.0-99.0); MEAN CORPUSCULAR HGB 26.6 pg (27.0-31.0); MEAN CORPUSCULAR HGB CONC 30.9 g/dl (33.0-37.0); MEAN PLATELET VOLUME 9.4 fl (9.6-12.3); MONO # 0.6 10*3/uL (0.1-1.0); NEUT # 3.8 10*3/uL (2.3-7.9); NEUT % 48.1 % (47.0-73.0); PLATELET COUNT AUTOMATED 351 10*3/uL (130-400); RED BLOOD COUNT 4.89 10*6/uL (4.10-5.10); RED CELL DISTRI WIDTH 13.6 % (0-14.5); WHITE BLOOD COUNT 7.9 10*3/uL (4.8-10.8)
[2019-04-01 07:24] LABS: ACT PARTIAL THROMBO TIME 29.1 SECONDS (20.0-32.1)
[2019-04-01 07:48] LABS: ALBUMIN 2.6 gm/dl (3.1-4.5); ALKALINE PHOSPHATASE 109 U/L (45-117); BUN 8 mg/dl (7-24); CHLORIDE 103 mmol/L (98-107); CHOLESTEROL 134 mg/dL (<200); CREATININE 0.72 mg/dL (0.55-1.02); FREE T4 1.28 ng/dl (0.76-1.46); HDL CHOLESTEROL 28 mg/dl (40-60); LDL CHOLESTEROL 77 mg/dL (9-159); PHOSPHOROUS 3.8 mg/dL (2.5-4.9); SGOT/AST 13 IU/L (3-35); SGPT/ALT 14 U/L (12-78); TOTAL PROTEIN 6.4 gm/dL (6.4-8.2); TRIGLYCERIDES 145 mg/dl (<150); VLDL CHOLESTEROL 29 mg/dL (6-40)
[2019-04-01 08:00] VITALS: BP 176/83
[2019-04-01 08:04] LABS: SODIUM 138 mmol/L (136-145)
[2019-04-01 08:19] LABS: POTASSIUM 3.7 mmol/L (3.5-5.1)
[2019-04-01 08:36] LABS: VITAMIN D, 25-HYDROXY 35.9 ng/mL (30-100)
--- NOTE | 2019-04-01 09:00 | NUR ---
Fire Control Technician B in to talk to patient. Patient states lives at home with sone and daughter in law. There are few steps in the home. Physician: radha ross [facility]acy: [facility] Home health services: none Patient's level of ADLs: INDEPENDENT Patient has working utilities: all working DME: none Follow-up physician's appointment after d/c: will be made by hospitalist nurse director upon discharge Does patient want to access PORTAL?: no Discharge plan discussed with patient she states she lives at home with son and daughter in law, she states she is independent in adls and ambulation, she states she will be returning home when medically stable and denies any home needs. YOLY OSEI
--- NOTE | 2019-04-01 09:40 | NUR ---
CALL PLACED TO [facility] REGARDING MED LIST, AWAITING FAX.
[2019-04-01] MEDS ORDERED: DULOXETINE HCL30 MG PO (11:04)
[2019-04-01] MEDS ORDERED: AMITRIPTYLINE25 MG PO (11:11)
--- NOTE | 2019-04-01 11:16 | NUR ---
MED LIST RECEIVED FROM PHARMACY, MED REC UPDATED. DR GAMBOA INFORMED.
[2019-04-01 12:00] VITALS: BP 190/88
--- NOTE | 2019-04-01 12:27 | NUR ---
DR. GAMBOA INFORMED THAT BURAK IS HIGH ANXIETY AT THIS TIME AND CRYING ASKING FOR MEDICATION FOR ANXIETY, REQUESTED VISTARIL. STATED HE WILL GO THROUGH HOME MEDICATIONS AND CONT APPROPIATE MEDS.
--- NOTE | 2019-04-01 13:00 | NUR ---
MEDICATED WITH TYLENOL PER PRN ORDER FOR COMPLAINTS OF GENERALIZED ACHES AND PAIN. WILL MONITOR FOR EFFECTIVENESS.
[2019-04-01 15:00] VITALS: BP 168/90
[2019-04-01 16:00] VITALS: BP 147/85
[2019-04-01 16:29] VITALS: BP 150/80
[2019-04-01] MEDS ORDERED: MAGNESIUM OXID400 MG PO (17:04)
[2019-04-01] MEDS ORDERED: GOOD NEIGHBOR L10 MG PO (17:04)
[2019-04-01] MEDS ORDERED: DEEP SEA44 ML NAS (17:04)
[2019-04-01] MEDS ORDERED: FLONASE ALLERG9.9 ML NAS (17:04)
[2019-04-01] MEDS ORDERED: KLOR-CON M2020 ME1 PO (17:04)
--- NOTE | 2019-04-01 17:46 | NUR ---
IN TO DISCHARGE PT AT THIS TIME, PT BECAME VERY TEARFUL, STATING SHE DOESN'T FEEL LIKE SHE CAN GO HOME TODAY. STATES SHE HAS BEEN TAKING A FRIEND'S SUBOXONE FOR A FEW MONTH'S AND SHE FEELS IF SHE IS GOING THROUGH WITHDRAWAL AND WANTS HELP WITH THAT. UPDATED DR GAMBOA.
--- NOTE | 2019-04-01 18:05 | NUR ---
DR HELTON IN TO SEE PT, PT TO BE DISCHARGED.
--- NOTE | 2019-04-01 18:12 | NUR ---
FOLLOW UP PHONE NUMBERS FOR DR ALCOCER AND [facility] PROGRAM PROVIDED TO PT.
--- NOTE | 2019-04-01 19:14 | NUR ---
Discharge instructions reviewed with patient/family. Patient receptive and verbalizes understanding. Follow-up care arranged. Written instructions given to patient/family. IV site and supervisor ticket sales removed. HARJIT KING
[2019-05-26] MEDS ORDERED: LEVOTHYROXINE50 MCG PO (10:26)
[2019-05-26] MEDS ORDERED: AMLODIPINE BESYL5 MG PO (10:27)
[2019-05-26] MEDS ORDERED: GLIPIZIDE5 MG PO (10:27)
[2019-05-26] MEDS ORDERED: LISINOPRIL40 MG PO (10:28)
[2019-05-26] MEDS ORDERED: KLONOPIN1 M1 PO ×2 (10:30→10:34)
[2019-05-26] MEDS ORDERED: KLONOPIN0.5 MG PO (10:31)
[2019-05-26] MEDS ORDERED: BUSPIRONE HCL15 MG PO (10:32)
[2019-05-26] MEDS ORDERED: LORAZEPAM1 MG PO (10:36)
[2019-05-26] MEDS ORDERED: CLARITIN10 MG PO (10:37)
[2019-05-26] MEDS ORDERED: MAGNESIUM OXID400 MG PO (10:38)
[2019-05-26] MEDS ORDERED: 24 HOUR ALLER15.8 ML NAS (10:39)
[2019-05-26] MEDS ORDERED: KLOR-CON M2020 ME1 PO (10:40)
[2019-05-26] MEDS ORDERED: NATURE'S BLEND F1 MG PO (10:42)
[2019-05-26] MEDS ORDERED: HYDROXYZINE HCL50 MG PO (10:42)
[2019-05-30] MEDS ORDERED: LEVAQUIN750 M1 PO (11:42)
== END 2019-04-01 19:14 | disposition home or self-care (01) | DRG 641 ==
LOC: ED 19:21 → EDHOLD 22:44 → 4E 22:44
PROVIDERS: Emergency Medicine; Internal Medicine; ADMIT Internal Medicine
DX: E87.6 Hypokalemia (principal); F41.9 Anxiety disorder, unspecified; E83.42 Hypomagnesemia; J44.9 Chronic obstructive pulmonary disease, unspecified; G47.33 Obstructive sleep apnea (adult) (pediatric); E03.9 Hypothyroidism, unspecified; I10 Essential (primary) hypertension; F41.1 Generalized anxiety disorder; I48.91 Unspecified atrial fibrillation; M51.35 Other intervertebral disc degeneration, thoracolumbar region; R91.8 Other nonspecific abnormal finding of lung field; J30.9 Allergic rhinitis, unspecified; F32.9 Major depressive disorder, single episode, unspecified; G89.29 Other chronic pain; D35.00 Benign neoplasm of unspecified adrenal gland; F17.210 Nicotine dependence, cigarettes, uncomplicated; E11.65 Type 2 diabetes mellitus with hyperglycemia; Z88.0 Allergy status to penicillin; Z88.8 Allergy status to other drugs, medicaments and biological substances; Z88.5 Allergy status to narcotic agent; Z90.49 Acquired absence of other specified parts of digestive tract; Z90.710 Acquired absence of both cervix and uterus; Z82.49 Family history of ischemic heart disease and other diseases of the circulatory system; Z79.899 Other long term (current) drug therapy

== ENCOUNTER 2019-04-05 12:04 | Emergency (ER) | payer OTHER ==
[~2019-04-05] VITALS: Ht 157.4 cm; Wt 60.8 kg
--- NOTE | ~2019-04-05 | EKG ---
[place], [place] ELECTROCARDIOGRAM REPORT NAME: DANO RODARTE UNIT #: [id number] ROOM: DOCTOR: EPIPHANY DRAFT REPORT BIRTHDATE: [birth year] [facility] Test Date: 2019-04-05 Test Time: 13:40:19 Pat Name: DANO RODARTE Department: Room: Gender: F Manager Training: : 1950 Requested By: BAILEY WASHINGTON Order Number: [id number] Reading MD: Jonah Alicea MD Measurements Intervals [place] Rate: 80 P: 45 WI: 159 QRS: -10 QRSD: 83 T: 60 QT: 409 QTc: 472 Interpretive Statements Sinus rhythm Compared to ECG 03/31/2019 20:34:29 Myocardial infarct finding no longer present Electronically Signed On 04-07-2019 9:38:08 PDT by Jonah Alicea MD CM:EKGRPT:ELECTROCARDIOGRAM REPORT [id number] BAILEY SANCHEZ DRAFT REPORT BAILEY WASHINGTON M.D.
[~2019-04-05 12:04] MED LIST changes: +AMITRIPTYLINE25 MG PO; +DEEP SEA44 ML NAS; +FLONASE ALLERG9.9 ML NAS; +GOOD NEIGHBOR L10 MG PO; +KLOR-CON M2020 ME1 PO; +MAGNESIUM OXID400 MG PO
[2019-04-05 13:41] LABS: BILIRUBIN NEGATIVE (NEGATIVE); BLOOD NEGATIVE (NEGATIVE); CLARITY SL CLOUDY (CLEAR); COLOR YELLOW (YELLOW); GLUCOSE NEGATIVE (NEGATIVE); KETONE NEGATIVE (NEGATIVE); LEUKO ESTERASE TRACE (NEGATIVE); NITRITE NEGATIVE (NEGATIVE); PH 6.5 (5.0-9.0); UROBILINOGEN 0.2 E.U./dl (0.2-1.0)
[2019-04-05 13:48] LABS: URINE AMPHETAMINES < 1000 (1000ng/ml); URINE BARBITURATES < 200 (200ng/ml); URINE BENZODIAZEPINES < 200 (200ng/ml); URINE CANNABINOIDS (THC) < 50 (50ng/ml); URINE COCAINE < 300 (300ng/ml); URINE METHADONE < 300 (300ng/ml); URINE OPIATES < 300 (300ng/ml)
[2019-04-05 13:49] LABS: BASO % 0.4 % (0.0-1.0); EOS # 0.1 10*3/uL (0.0-0.4); HEMATOCRIT 45.3 % (37.0-47.0); HEMOGLOBIN 14.3 g/dl (12.0-16.0); LYMPH % 19.8 % (27.0-41.0); MEAN CELL VOLUME 84.5 fl (81.0-99.0); MEAN CORPUSCULAR HGB 26.7 pg (27.0-31.0); MEAN CORPUSCULAR HGB CONC 31.6 g/dl (33.0-37.0); MEAN PLATELET VOLUME 9.3 fl (9.6-12.3); MONO # 0.7 10*3/uL (0.1-1.0); NEUT # 7.2 10*3/uL (2.3-7.9); NEUT % 71.4 % (47.0-73.0); PLATELET COUNT AUTOMATED 410 10*3/uL (130-400); RED BLOOD COUNT 5.36 10*6/uL (4.10-5.10); RED CELL DISTRI WIDTH 13.8 % (0-14.5); WHITE BLOOD COUNT 10.1 10*3/uL (4.8-10.8)
[2019-04-05 13:50] LABS: MUCOUS TRACE; URINE PHENCYCLIDINE < 25 (25ng/ml); WBC 0-2 wbc/hpf (0-5)
[2019-04-05 14:04] LABS: ALBUMIN 3.3 gm/dl (3.1-4.5); ALKALINE PHOSPHATASE 122 U/L (45-117); BUN 9 mg/dl (7-24); CHLORIDE 95 mmol/L (98-107); CREATININE 0.92 mg/dL (0.55-1.02); POTASSIUM 2.7 mmol/L (3.5-5.1); SGOT/AST 12 IU/L (3-35); SGPT/ALT 13 U/L (12-78); SODIUM 134 mmol/L (136-145); TOTAL PROTEIN 7.6 gm/dL (6.4-8.2)
[2019-04-05 14:07] LABS: TROPONIN I < 0.015 ng/ml (<0.045)
[2019-04-05 14:20] VITALS: BP 131/91
[2019-04-05] MEDS ORDERED: ATIVAN1 MG PO (14:23)
[2019-05-26] MEDS ORDERED: LEVOTHYROXINE50 MCG PO (10:26)
[2019-05-26] MEDS ORDERED: AMLODIPINE BESYL5 MG PO (10:27)
[2019-05-26] MEDS ORDERED: GLIPIZIDE5 MG PO (10:27)
[2019-05-26] MEDS ORDERED: LISINOPRIL40 MG PO (10:28)
[2019-05-26] MEDS ORDERED: KLONOPIN1 M1 PO ×2 (10:30→10:34)
[2019-05-26] MEDS ORDERED: KLONOPIN0.5 MG PO (10:31)
[2019-05-26] MEDS ORDERED: BUSPIRONE HCL15 MG PO (10:32)
[2019-05-26] MEDS ORDERED: LORAZEPAM1 MG PO (10:36)
[2019-05-26] MEDS ORDERED: CLARITIN10 MG PO (10:37)
[2019-05-26] MEDS ORDERED: MAGNESIUM OXID400 MG PO (10:38)
[2019-05-26] MEDS ORDERED: 24 HOUR ALLER15.8 ML NAS (10:39)
[2019-05-26] MEDS ORDERED: KLOR-CON M2020 ME1 PO (10:40)
[2019-05-26] MEDS ORDERED: HYDROXYZINE HCL50 MG PO (10:42)
[2019-05-26] MEDS ORDERED: NATURE'S BLEND F1 MG PO (10:42)
== END 2019-04-05 14:29 | disposition home or self-care (01) ==
LOC: ED 12:04
PROVIDERS: Emergency Medicine
DX: E87.6 Hypokalemia (principal); R42 Dizziness and giddiness; R11.2 Nausea with vomiting, unspecified; R06.02 Shortness of breath; F41.9 Anxiety disorder, unspecified; I10 Essential (primary) hypertension; K21.9 Gastro-esophageal reflux disease without esophagitis; E03.9 Hypothyroidism, unspecified; J44.9 Chronic obstructive pulmonary disease, unspecified; I48.91 Unspecified atrial fibrillation; M47.896 Other spondylosis, lumbar region; E11.9 Type 2 diabetes mellitus without complications; F17.210 Nicotine dependence, cigarettes, uncomplicated

== ENCOUNTER 2019-04-11 13:00 | Emergency (ER) | payer OTHER ==
[~2019-04-11] VITALS: Ht 162.5 cm; Wt 66.7 kg
--- NOTE | ~2019-04-11 | EKG ---
[place], [place] ELECTROCARDIOGRAM REPORT NAME: DANO RODARTE UNIT #: [id number] ROOM: DOCTOR: EPIPHANY DRAFT REPORT BIRTHDATE: [birth year] [facility] Test Date: 2019-04-11 Test Time: 13:20:35 Pat Name: DANO RODARTE Department: Room: Gender: F Rn Social Work: : 1950 Requested By: NADIA SAEED Order Number: [id number] Reading MD: Jonah Alicea MD Measurements Intervals [place] Rate: 69 P: 53 OK: 163 QRS: 4 QRSD: 73 T: 62 QT: 374 QTc: 401 Interpretive Statements Sinus rhythm Anteroseptal infarct, old Compared to ECG 04/05/2019 13:40:19 Myocardial infarct finding now present Electronically Signed On 04-14-2019 7:21:29 PDT by Jonah Alicea MD CM:EKGRPT:ELECTROCARDIOGRAM REPORT 1320 0721 NADIA SANCHEZ DRAFT REPORT NADIA LEE
[2019-04-11 13:00] VITALS: BP 169/94
[2019-04-11 13:38] LABS: BASO % 0.6 % (0.0-1.0); EOS # 0.1 10*3/uL (0.0-0.4); EOS % 1.7 % (1.0-4.0); HEMOGLOBIN 13.3 g/dl (12.0-16.0); LYMPH # 2.3 10*3/uL (1.3-4.4); LYMPH % 31.5 % (27.0-41.0); MEAN CORPUSCULAR HGB 26.3 pg (27.0-31.0); MEAN CORPUSCULAR HGB CONC 30.2 g/dl (33.0-37.0); MONO # 0.4 10*3/uL (0.1-1.0); MONO % 5.4 % (3.0-9.0); NEUT # 4.4 10*3/uL (2.3-7.9); NEUT % 60.7 % (47.0-73.0); PLATELET COUNT AUTOMATED 365 10*3/uL (130-400); RED BLOOD COUNT 5.06 10*6/uL (4.10-5.10); RED CELL DISTRI WIDTH 14.1 % (0-14.5); WHITE BLOOD COUNT 7.2 10*3/uL (4.8-10.8)
[2019-04-11 13:49] LABS: INTERNATIONAL NORM RATIO 0.9 (2.0-3.5)
[2019-04-11 13:53] LABS: ALBUMIN 3.2 gm/dl (3.1-4.5); ALKALINE PHOSPHATASE 115 U/L (45-117); BUN 10 mg/dl (7-24); CHLORIDE 103 mmol/L (98-107); CREATININE 0.92 mg/dL (0.55-1.02); LIPASE 86 U/L (73-393); SGOT/AST 11 IU/L (3-35); SGPT/ALT 13 U/L (12-78); SODIUM 140 mmol/L (136-145); TOTAL PROTEIN 6.9 gm/dL (6.4-8.2)
[2019-04-11 13:54] LABS: TROPONIN I < 0.015 ng/ml (<0.045)
[2019-04-11 14:16] LABS: BILIRUBIN NEGATIVE (NEGATIVE); BLOOD NEGATIVE (NEGATIVE); CLARITY CLEAR (CLEAR); COLOR YELLOW (YELLOW); GLUCOSE NEGATIVE (NEGATIVE); KETONE NEGATIVE (NEGATIVE); LEUKO ESTERASE TRACE (NEGATIVE); NITRITE NEGATIVE (NEGATIVE); PH 6.5 (5.0-9.0); UROBILINOGEN 0.2 E.U./dl (0.2-1.0)
[2019-04-11 14:24] LABS: BACTERIA 2+
[2019-04-11] MEDS ORDERED: ATIVAN1 MG PO (15:04)
[2019-05-26] MEDS ORDERED: LEVOTHYROXINE50 MCG PO (10:26)
[2019-05-26] MEDS ORDERED: GLIPIZIDE5 MG PO (10:27)
[2019-05-26] MEDS ORDERED: AMLODIPINE BESYL5 MG PO (10:27)
[2019-05-26] MEDS ORDERED: LISINOPRIL40 MG PO (10:28)
[2019-05-26] MEDS ORDERED: KLONOPIN1 M1 PO ×2 (10:30→10:34)
[2019-05-26] MEDS ORDERED: KLONOPIN0.5 MG PO (10:31)
[2019-05-26] MEDS ORDERED: BUSPIRONE HCL15 MG PO (10:32)
[2019-05-26] MEDS ORDERED: LORAZEPAM1 MG PO (10:36)
[2019-05-26] MEDS ORDERED: CLARITIN10 MG PO (10:37)
[2019-05-26] MEDS ORDERED: MAGNESIUM OXID400 MG PO (10:38)
[2019-05-26] MEDS ORDERED: 24 HOUR ALLER15.8 ML NAS (10:39)
[2019-05-26] MEDS ORDERED: KLOR-CON M2020 ME1 PO (10:40)
[2019-05-26] MEDS ORDERED: NATURE'S BLEND F1 MG PO (10:42)
[2019-05-26] MEDS ORDERED: HYDROXYZINE HCL50 MG PO (10:42)
== END 2019-04-11 14:58 | disposition home or self-care (01) ==
LOC: ED 13:00
PROVIDERS: Physician Assistant
DX: F41.9 Anxiety disorder, unspecified (principal); R42 Dizziness and giddiness; R11.2 Nausea with vomiting, unspecified; F32.9 Major depressive disorder, single episode, unspecified; I10 Essential (primary) hypertension; J44.9 Chronic obstructive pulmonary disease, unspecified; K21.9 Gastro-esophageal reflux disease without esophagitis; E11.9 Type 2 diabetes mellitus without complications; F17.200 Nicotine dependence, unspecified, uncomplicated; Z88.0 Allergy status to penicillin; Z88.8 Allergy status to other drugs, medicaments and biological substances; Z88.6 Allergy status to analgesic agent; Z79.899 Other long term (current) drug therapy; Z86.19 Personal history of other infectious and parasitic diseases

== ENCOUNTER 2019-05-01 19:50 | Inpatient (IN) | payer OTHER ==
[~2019-05-01] VITALS: Ht 157.5 cm; Wt 62.3 kg
[2019-05-01 19:50] VITALS: BP 138/76
[2019-05-01 20:22] LABS: BASO % 0.2 % (0.0-1.0); EOS # 0.1 10*3/uL (0.0-0.4); EOS % 0.8 % (1.0-4.0); HEMATOCRIT 45.3 % (37.0-47.0); HEMOGLOBIN 14.5 g/dl (12.0-16.0); LYMPH # 2.2 10*3/uL (1.3-4.4); LYMPH % 17.2 % (27.0-41.0); MEAN CELL VOLUME 82.1 fl (81.0-99.0); MEAN CORPUSCULAR HGB 26.3 pg (27.0-31.0); MEAN PLATELET VOLUME 9.3 fl (9.6-12.3); MONO # 0.8 10*3/uL (0.1-1.0); MONO % 6.5 % (3.0-9.0); NEUT # 9.5 10*3/uL (2.3-7.9); NEUT % 74.8 % (47.0-73.0); PLATELET COUNT AUTOMATED 416 10*3/uL (130-400); RED BLOOD COUNT 5.52 10*6/uL (4.10-5.10); RED CELL DISTRI WIDTH 14.3 % (0-14.5); WHITE BLOOD COUNT 12.8 10*3/uL (4.8-10.8)
[2019-05-01 20:33] LABS: ACT PARTIAL THROMBO TIME 30.7 SECONDS (20.0-32.1)
[2019-05-01 20:46] LABS: ALBUMIN 3.2 gm/dl (3.1-4.5); ALKALINE PHOSPHATASE 137 U/L (45-117); BUN 6 mg/dl (7-24); CHLORIDE 93 mmol/L (98-107); CREATININE 0.93 mg/dL (0.55-1.02); SGOT/AST 19 IU/L (3-35); SGPT/ALT 18 U/L (12-78); SODIUM 130 mmol/L (136-145); TOTAL PROTEIN 7.4 gm/dL (6.4-8.2)
--- NOTE | 2019-05-01 20:58 | NUR ---
CRITICAL LAB POTASSIUM 2.4, NOTIFIED.
[2019-05-01 20:59] LABS: POTASSIUM 2.4 mmol/L (3.5-5.1); TROPONIN I < 0.015 ng/ml (<0.045)
--- NOTE | 2019-05-01 22:01 | NUR ---
PT C/O OF INFUSION OF POTASSIUM AND NS HURTING HER ARM.NS PLACED ON PUMP AT 125ML/HR AND POTASSIUM TITRATED TO 35ML/HR.PT CONTINUES TO C/O OF PAIN AND BURNING IN LEFT ARM.INFUSIONS STOPPED.IV FLUSHED APPEARS TO BE PATENT BUT PT CONTINUES TO C/O OF PAIN IN LEFT ARM WITH NS FLUSH.NEW 20GAUGE IV ESTABLISHED IN [facility].FLUIDS INFUSING.PT DENIES ANY PAIN AT THIS TIME.CALL GRACIA IS WITHIN REACH.
[2019-05-01 22:36] LABS: ABG BASE EXCESS 5.4 mmol/L (-2.0-2.0); ABG HCO3 28.7 mmol/l (22-26); ARTERIAL BLOOD GAS PCO2 38.5 mmHg (35-45); ARTERIAL BLOOD GAS PH 7.486 (7.35-7.45)
--- NOTE | 2019-05-01 23:25 | NUR ---
PT INFUSION OF POTASSIUM CONTINUES TO INFUSE @ 35ML/HR, ALONG WITH NS @ 125ML/HR.
--- NOTE | 2019-05-01 23:29 | NUR ---
DR FRANK AT BEDSIDE FOR PT UPDATE ON PLAN OF CARE.PT REQUESTING PAIN MEDICATION STATES "I HURT ALL OVER".PT PLACED ON 2L O2 VIA NC DUE TO OXYGEN SATURATION DROP TO 88% ON RA.
[2019-05-01 23:31] VITALS: BP 132/73
--- NOTE | 2019-05-01 23:40 | NUR ---
RESPIRATORY CONTACTED FOR BREATHING TX ORDERED IN EMAR.
--- NOTE | 2019-05-01 23:56 | NUR ---
20GAUGE ANGIOCATH IN LAC FLUSHED WITH NS, PT DENIES ANY PAIN.IV FLUSHES WELL.INFUSION OF 2GM MAGNESIUM INITIATED PER EMAR.
[2019-05-02 00:20] VITALS: BP 152/69
--- NOTE | 2019-05-02 00:20 | NUR ---
A 68, admitted to 5E, under the services of JOSE ELIAS Caldera DO with a diagnosis of CHEST PAIN OF UNCERTAIN ETIOLOGY. Chief complaint is CHEST PAIN. Patient arrived via bed from ER. Monitor applied. Initial assessment completed. Vital signs taken and recorded. JOSE ELIAS CALDERA DO notified of admission to the unit. Orders received. See assessment for past medical history, medications and allergies. Patient and/or family oriented to unit. [address] visitation policy reviewed. Clothing/patient valuable form completed. PT VACCINATED THIS FLU SEASON. NO WOUNDS ON ASSESSMENT. SKIN WDI. MAXINE MCDONALD
--- NOTE | 2019-05-02 00:50 | NUR ---
PRN ZOFRAN ADMINISTERED FOR PT C/O NAUSEA WITHOUT VOMITING. WILL CONTINUE TO MONITOR.
--- NOTE | 2019-05-02 01:30 | NUR ---
SPOKE WITH DR SHANKS TO CLARIFY ORDERS. PT IS TO RECEIVE TWO K RUNS TOTAL AND 1 BAG OF NS/20KCL.
[2019-05-02] MEDS ORDERED: TOPROL XL100 MG PO (01:31)
[2019-05-02] MEDS ORDERED: TRAZODONE100 MG PO (01:32)
[2019-05-02] MEDS ORDERED: MAGNESIUM OXID400 MG PO (01:32)
[2019-05-02] MEDS ORDERED: CLARITIN10 MG PO (01:33)
[2019-05-02] MEDS ORDERED: CYMBALTA60 MG PO (01:33)
[2019-05-02] MEDS ORDERED: BUSPIRONE30 MG PO (01:34)
[2019-05-02] MEDS ORDERED: ATARAX,VISTARIL50 MG PO (01:34)
--- NOTE | 2019-05-02 01:41 | NUR ---
DR SHANKS NOTIFED OF UPDATED MED REC.
--- NOTE | 2019-05-02 01:42 | NUR ---
SPOKE WITH DR SHANKS. PT IS ANXIOUS AT THIS TIME. T.O. TAKEN FOR 1 MG ATIVAN IV.
--- NOTE | 2019-05-02 02:00 | NUR ---
MEDICATION FROM HOME SHEETS FILLED OUT. THERE WERE A FEW BOTTLES WITH SEVERAL DIFFERENT VARIETY OF PILLS IN A SINGLE CONTAINER. PT HAD HALVES AND PIECES OF CERTAIN MEDICATIONS IN SOME BOTTLES. ORGANIZED AND COUNTED TO OUR BEST ABILITY.
--- NOTE | 2019-05-02 02:22 | NUR ---
1 MG ATIVAN GIVEN AT THIS TIME. PT STATES THAT SHE "IS FEELING MUCH BETTER ALREADY". WILL CONTINUE TO MONITOR.
--- NOTE | 2019-05-02 06:19 | NUR ---
NEW PATIENT CONSULT FOR DR OLIVAREZ CALLED INTO ANSWERING SERVICE. SPOKE WITH BRENDA, STATES SHE WILL NOTIFY THE DOCTOR.
[2019-05-02 06:21] LABS: BUN 6 mg/dl (7-24); CHLORIDE 99 mmol/L (98-107); SODIUM 134 mmol/L (136-145)
[2019-05-02 06:23] LABS: BASO % 0.4 % (0.0-1.0); EOS # 0.2 10*3/uL (0.0-0.4); EOS % 1.4 % (1.0-4.0); HEMATOCRIT 41.8 % (37.0-47.0); HEMOGLOBIN 13.2 g/dl (12.0-16.0); LYMPH # 2.7 10*3/uL (1.3-4.4); LYMPH % 25.8 % (27.0-41.0); MEAN CELL VOLUME 82.1 fl (81.0-99.0); MEAN CORPUSCULAR HGB 25.9 pg (27.0-31.0); MEAN CORPUSCULAR HGB CONC 31.6 g/dl (33.0-37.0); MEAN PLATELET VOLUME 9.2 fl (9.6-12.3); MONO # 0.9 10*3/uL (0.1-1.0); MONO % 8.1 % (3.0-9.0); NEUT # 6.7 10*3/uL (2.3-7.9); PLATELET COUNT AUTOMATED 356 10*3/uL (130-400); RED BLOOD COUNT 5.09 10*6/uL (4.10-5.10); RED CELL DISTRI WIDTH 14.2 % (0-14.5); WHITE BLOOD COUNT 10.5 10*3/uL (4.8-10.8)
[2019-05-02 06:24] LABS: CREATININE 0.76 mg/dL (0.55-1.02); PHOSPHOROUS 3.6 mg/dL (2.5-4.9)
--- NOTE | 2019-05-02 08:05 | NUR ---
PTS HOME MEDICATIONS TAKEN TO PHARMACY.
--- NOTE | 2019-05-02 08:29 | NUR ---
Medicated with tylenol per prn order for complaints of back pain.
--- NOTE | 2019-05-02 09:00 | NUR ---
Hand [employer]inder in to talk to patient. Patient states lives at home with son and daughter in law. There are few steps in the home. [facility]ician: [facility] Home health services: none Patient's level of ADLs: INDEPENDENT Patient has working utilities: all working DME: home oxygen from [employer] she wears at hs Follow-up physician's appointment after d/c: will be made by hosptialist nurse director upon discharge Does patient want to access PORTAL?: no Discharge plan discussed with patient, she states she lives at home with son and daughter in law, she is independent in adls and ambulation, she has home oxygen she wears at night from [employer], she states she will return to home when able discussed with her VNA and she declines any home needs at this time. YOLY OSEI
--- NOTE | 2019-05-02 09:30 | NUR ---
States that tylenol effective for pain.
[2019-05-02 10:06] LABS: BILIRUBIN NEGATIVE (NEGATIVE); BLOOD NEGATIVE (NEGATIVE); CLARITY SL CLOUDY (CLEAR); COLOR YELLOW (YELLOW); GLUCOSE NEGATIVE (NEGATIVE); KETONE NEGATIVE (NEGATIVE); LEUKO ESTERASE NEGATIVE (NEGATIVE); NITRITE NEGATIVE (NEGATIVE); UROBILINOGEN 0.2 E.U./dl (0.2-1.0)
[2019-05-02 10:15] LABS: URINE CREATININE RANDOM 93.9 mg/dL
[2019-05-02 10:16] LABS: BACTERIA 2+
[2019-05-02 10:17] LABS: MUCOUS 1+
--- NOTE | 2019-05-02 10:31 | NUR ---
Notified Maya on [facility] of consult. States she is already aware of it and has put it in.
[2019-05-02 12:00] VITALS: BP 148/66
--- NOTE | 2019-05-02 13:34 | NUR ---
Spoke with Dr. Soliz regarding pt, Pt is anxious states she feels like she is having a panic attack. Pt is very tearful. States that she does this off and on and has no idea why, states it just comes one her suddenly. States she doesn't know what to do to make it stop, states that DrRob has tried different meds. I notified Dr. Soliz of pt statements and that home meds still need ordered. Telephone order obtained for ativan x1. See order.
--- NOTE | 2019-05-02 13:43 | NUR ---
Medicated with ativan po per prn order.
[2019-05-02 16:00] VITALS: BP 114/60
--- NOTE | 2019-05-02 16:12 | NUR ---
Pt states she is finally feeling better after ativan.
[2019-05-02 20:00] VITALS: BP 150/77
--- NOTE | 2019-05-02 20:35 | NUR ---
PATIENT MEDICATED WITH TYLENOL PER PRN ORDER FOR C/O BACK AND LEG PAIN. SEE EMAR. REINFORCED USE OF CALL LIGHT
--- NOTE | 2019-05-02 23:15 | NUR ---
PATIENT RESTING QUIETLY. APPEARS TO BE ALEEPING
[2019-05-03] VITALS: BP 153/68
--- NOTE | 2019-05-03 01:20 | NUR ---
PATIENT TEARFUL. C/O BEING UNABLE TO SLEEP. C/O HEADACHE. MEDICATED WITH TYLENOL PER PRM ORDER.
--- NOTE | 2019-05-03 03:00 | NUR ---
PATIENT SLEEPING . MEDICATION APPEARS EFFECTIVE.
--- NOTE | 2019-05-03 03:30 | NUR ---
24 HR chart check completed.
--- NOTE | 2019-05-03 05:45 | NUR ---
PATIENT MEDICATED WITH TYLENOL AND ZOFRAN PER PRN ORDER FOR C/O HEASD AND BACK PAIN AND ALSO C/O NAUSEA SEE EMAR. REINFORCED USE OF CALL LIGHT.
[2019-05-03 06:26] LABS: BASO % 0.5 % (0.0-1.0); EOS # 0.1 10*3/uL (0.0-0.4); EOS % 2.4 % (1.0-4.0); HEMATOCRIT 42.4 % (37.0-47.0); HEMOGLOBIN 13.1 g/dl (12.0-16.0); LYMPH # 2.5 10*3/uL (1.3-4.4); LYMPH % 41.8 % (27.0-41.0); MEAN CELL VOLUME 83.5 fl (81.0-99.0); MEAN CORPUSCULAR HGB 25.8 pg (27.0-31.0); MEAN CORPUSCULAR HGB CONC 30.9 g/dl (33.0-37.0); MEAN PLATELET VOLUME 9.6 fl (9.6-12.3); MONO # 0.6 10*3/uL (0.1-1.0); MONO % 10.5 % (3.0-9.0); NEUT # 2.6 10*3/uL (2.3-7.9); NEUT % 44.5 % (47.0-73.0); PLATELET COUNT AUTOMATED 336 10*3/uL (130-400); RED BLOOD COUNT 5.08 10*6/uL (4.10-5.10); RED CELL DISTRI WIDTH 14.3 % (0-14.5); WHITE BLOOD COUNT 5.9 10*3/uL (4.8-10.8)
[2019-05-03 06:44] LABS: BUN 8 mg/dl (7-24); CHLORIDE 99 mmol/L (98-107); CREATININE 0.69 mg/dL (0.55-1.02); POTASSIUM 3.3 mmol/L (3.5-5.1); SODIUM 135 mmol/L (136-145)
[2019-05-03 08:00] VITALS: BP 144/80
--- NOTE | 2019-05-03 08:15 | NUR ---
Awake and alert oriented x3. States she is still feeling depressed but states less anxious than yesterday. Lungs diminished and clear throughout. BM today per pt. Bp was 144/80. Routine am meds given at this time. Denies pain at this time. See assessment. Pt is sitting up in bed eating breakfast. Bed alarm on due to pt being slightly unsteady when up. Verbalized understanding to use call light if help is needed.
--- NOTE | 2019-05-03 09:40 | NUR ---
Medicated with tylenol per prn order for complaints of headache.
--- NOTE | 2019-05-03 10:03 | NUR ---
Spoke with [facility] regarding consult. Notified that consult was called yesterday for pt and pt has not yet been seen. Staff at [facility] states that Dr was already in and gone prior to consult yesterday and nurse practitioner is just arriving.
--- NOTE | 2019-05-03 10:30 | NUR ---
States that tylenol effective for headache.
--- NOTE | 2019-05-03 11:00 | NUR ---
States that ativan was only somewhat effective for anxiety. States it never really goes away.
[2019-05-03 12:00] VITALS: BP 133/67
--- NOTE | 2019-05-03 12:35 | NUR ---
Stacy Garvey PADDER CUSHION up to evaluate pt.
[2019-05-03 16:00] VITALS: BP 138/72
--- NOTE | 2019-05-03 18:31 | NUR ---
PT requested that I call her as she cannot reach him from her room phone as he has a [employer] cell phone. She states they recently were but are now back together. Pt is tearful at this time. I attempted to call Geo Arce at number provided [phone] but it states the number is no longer in service.
[2019-05-03 18:50] LABS: BILIRUBIN NEGATIVE (NEGATIVE); BLOOD NEGATIVE (NEGATIVE); CLARITY CLEAR (CLEAR); COLOR YELLOW (YELLOW); GLUCOSE NEGATIVE (NEGATIVE); KETONE NEGATIVE (NEGATIVE); LEUKO ESTERASE NEGATIVE (NEGATIVE); NITRITE NEGATIVE (NEGATIVE); PH 7.5 (5.0-9.0); SPECIFIC GRAVITY 1.015 (1.005-1.030); UROBILINOGEN 0.2 E.U./dl (0.2-1.0)
[2019-05-03 18:55] LABS: EPITHELIAL CELLS 0-2
[2019-05-03 20:00] VITALS: BP 142/70; BP 147/74
--- NOTE | 2019-05-03 23:11 | NUR ---
PATIENT REQUESTING PAIN MEDICATION FOR LOWER LEG PAIN RATED 6/10 ON 0/10 SCALE AMD ITCHING. TYLENOL AND VISTARIL ADMINISTERED PRESCRIBED. WILL MONITOR FOR EFFECTIVENESS.
--- NOTE | 2019-05-04 00:11 | NUR ---
PATIENT STATES THAT TYLENOL WAS EFFECTIVE FOR LOWER LEG PAIN AND VISTARIL EFFECTIVE FOR ITCHING. WILL MONITOR.
--- NOTE | 2019-05-04 01:40 | NUR ---
PATIENT RESTING IN BED, EATING A BANANA AND WATCHING TV. PATIENT HAS NO COMPLAINTS AT THIS TIME. BED ALARM ON AND CALL LIGHT WITHIN REACH WILL MONITOR.
--- NOTE | 2019-05-04 02:33 | NUR ---
24 HR chart check completed.
--- NOTE | 2019-05-04 05:30 | NUR ---
PATIENT C/O LOWER LEG PAIN AND ITCHING RATED 5/10 ON 0/10 SCALE. TYLENOL AND VISTARIL ADMINISTERED PRESCRIBED. WILL MONITOR FOR EFFECTIVENESS.
[2019-05-04 06:22] LABS: BUN 8 mg/dl (7-24); CHLORIDE 101 mmol/L (98-107); CREATININE 0.67 mg/dL (0.55-1.02); POTASSIUM 3.7 mmol/L (3.5-5.1); SODIUM 136 mmol/L (136-145)
[2019-05-04 06:24] LABS: BASO % 0.4 % (0.0-1.0); EOS # 0.1 10*3/uL (0.0-0.4); EOS % 1.8 % (1.0-4.0); HEMATOCRIT 40.3 % (37.0-47.0); HEMOGLOBIN 12.3 g/dl (12.0-16.0); LYMPH # 3.3 10*3/uL (1.3-4.4); LYMPH % 45.7 % (27.0-41.0); MEAN CORPUSCULAR HGB 25.9 pg (27.0-31.0); MEAN CORPUSCULAR HGB CONC 30.5 g/dl (33.0-37.0); MEAN PLATELET VOLUME 9.5 fl (9.6-12.3); MONO # 0.6 10*3/uL (0.1-1.0); MONO % 8.1 % (3.0-9.0); NEUT # 3.2 10*3/uL (2.3-7.9); NEUT % 43.7 % (47.0-73.0); PLATELET COUNT AUTOMATED 332 10*3/uL (130-400); RED BLOOD COUNT 4.74 10*6/uL (4.10-5.10); RED CELL DISTRI WIDTH 14.3 % (0-14.5); WHITE BLOOD COUNT 7.3 10*3/uL (4.8-10.8)
--- NOTE | 2019-05-04 07:37 | NUR ---
24 HOUR CHART CHECK COMPLETED
--- NOTE | 2019-05-04 08:00 | NUR ---
PATIENT ASSESSMENT COMPLETED AT THIS TIME WITHOUT INCIDENT. PATIENT DENIES PAIN, CHEST PAIN, OR SHORTNESS OF BREATH AT THIS TIME. MEDICATIONS GIVEN WITHOUT INCIDENT. CALL LIGHT WITHIN REACH, BED ALARM IN USE AND FUNCTIONAL AT THIS TIME. WILL CONTINUE TO MONITOR.
[2019-05-04] MEDS ORDERED: MIRTAZAPINE15 M2 PO (10:05)
[2019-05-04] MEDS ORDERED: DULOXETINE HCL30 MG PO (10:05)
--- NOTE | 2019-05-04 11:05 | NUR ---
PATIENT DISCHARGE INSTRUCTIONS AND MEDICATIONS REVIEWED WITH PATIENT ALONG WITH EDUCATIONAL INFORMATION. ALL QUESTIONS ANSWERED TO PATIENT SATISFACTION AT THIS TIME. ADVISED PATIENT IF SHE HAS FUTHER QUESTIONS TO CALL FLOOR AND IF SHE HAD WORSENING SYMPTOMS TO RETURN TO THE ER. BOTH IV SALINE LOCKS REMOVED WITHOUT INCIDENT AND MONITOR REMOVED PRIOR TO DISCHARGE. PATIENT LEFT WITH ALL PERSONAL BELONGINGS AND HER HOME MEDICATIONS WHICH WERE IN PHARMACY.
[2019-05-26] MEDS ORDERED: LEVOTHYROXINE50 MCG PO (10:26)
[2019-05-26] MEDS ORDERED: AMLODIPINE BESYL5 MG PO (10:27)
[2019-05-26] MEDS ORDERED: GLIPIZIDE5 MG PO (10:27)
[2019-05-26] MEDS ORDERED: LISINOPRIL40 MG PO (10:28)
[2019-05-26] MEDS ORDERED: KLONOPIN1 M1 PO ×2 (10:30→10:34)
[2019-05-26] MEDS ORDERED: KLONOPIN0.5 MG PO (10:31)
[2019-05-26] MEDS ORDERED: BUSPIRONE HCL15 MG PO (10:32)
[2019-05-26] MEDS ORDERED: LORAZEPAM1 MG PO (10:36)
[2019-05-26] MEDS ORDERED: CLARITIN10 MG PO (10:37)
[2019-05-26] MEDS ORDERED: MAGNESIUM OXID400 MG PO (10:38)
[2019-05-26] MEDS ORDERED: 24 HOUR ALLER15.8 ML NAS (10:39)
[2019-05-26] MEDS ORDERED: KLOR-CON M2020 ME1 PO (10:40)
[2019-05-26] MEDS ORDERED: HYDROXYZINE HCL50 MG PO (10:42)
[2019-05-26] MEDS ORDERED: NATURE'S BLEND F1 MG PO (10:42)
[2019-05-30] MEDS ORDERED: LEVAQUIN750 M1 PO (11:42)
== END 2019-05-04 11:56 | disposition home or self-care (01) | DRG 426 ==
LOC: ED 19:50 → 5E 23:40 → EDHOLD 23:40 → 5E 23:57
PROVIDERS: Emergency Medicine Emergency Medical Services; Family Medicine; Internal Medicine; ADMIT Internal Medicine
DX: E87.1 Hypo-osmolality and hyponatremia (principal); N39.0 Urinary tract infection, site not specified; E87.3 Alkalosis; E83.42 Hypomagnesemia; E87.6 Hypokalemia; K21.9 Gastro-esophageal reflux disease without esophagitis; E03.9 Hypothyroidism, unspecified; D47.3 Essential (hemorrhagic) thrombocythemia; F32.9 Major depressive disorder, single episode, unspecified; E11.65 Type 2 diabetes mellitus with hyperglycemia; I10 Essential (primary) hypertension; F41.1 Generalized anxiety disorder; F17.218 Nicotine dependence, cigarettes, with other nicotine-induced disorders; E87.8 Other disorders of electrolyte and fluid balance, not elsewhere classified; G47.33 Obstructive sleep apnea (adult) (pediatric); F41.0 Panic disorder [episodic paroxysmal anxiety]; G89.29 Other chronic pain; Z71.6 Tobacco abuse counseling; Z79.84 Long term (current) use of oral hypoglycemic drugs; Z90.49 Acquired absence of other specified parts of digestive tract; Z90.710 Acquired absence of both cervix and uterus; Z88.0 Allergy status to penicillin; Z88.8 Allergy status to other drugs, medicaments and biological substances; Z82.49 Family history of ischemic heart disease and other diseases of the circulatory system; Z83.3 Family history of diabetes mellitus

== ENCOUNTER 2019-05-14 15:32 | Inpatient (IN) | payer OTHER ==
[~2019-05-14] VITALS: Ht 157.4 cm; Wt 65.0 kg
[~2019-05-14 15:32] MED LIST changes: +BUSPIRONE30 MG PO; +CLARITIN10 MG PO; +MIRTAZAPINE15 M2 PO; +TOPROL XL100 MG PO
[2019-05-14 15:35] VITALS: BP 163/87
[2019-05-14 15:56] LABS: BASO # 0.1 10*3/uL (0.0-0.1); BASO % 0.3 % (0.0-1.0); EOS # 0.1 10*3/uL (0.0-0.4); EOS % 0.5 % (1.0-4.0); HEMATOCRIT 45.9 % (37.0-47.0); HEMOGLOBIN 15.1 g/dl (12.0-16.0); LYMPH # 3.4 10*3/uL (1.3-4.4); LYMPH % 16.1 % (27.0-41.0); MEAN CELL VOLUME 81.8 fl (81.0-99.0); MEAN CORPUSCULAR HGB 26.9 pg (27.0-31.0); MEAN CORPUSCULAR HGB CONC 32.9 g/dl (33.0-37.0); MEAN PLATELET VOLUME 10.2 fl (9.6-12.3); MONO # 1.1 10*3/uL (0.1-1.0); MONO % 5.3 % (3.0-9.0); NEUT # 16.4 10*3/uL (2.3-7.9); NEUT % 77.3 % (47.0-73.0); PLATELET COUNT AUTOMATED 471 10*3/uL (130-400); RED BLOOD COUNT 5.61 10*6/uL (4.10-5.10); RED CELL DISTRI WIDTH 16.2 % (0-14.5); WHITE BLOOD COUNT 21.2 10*3/uL (4.8-10.8)
[2019-05-14 16:09] LABS: BILIRUBIN NEGATIVE (NEGATIVE); BLOOD NEGATIVE (NEGATIVE); CLARITY CLEAR (CLEAR); COLOR YELLOW (YELLOW); GLUCOSE NEGATIVE (NEGATIVE); KETONE NEGATIVE (NEGATIVE); LEUKO ESTERASE TRACE (NEGATIVE); NITRITE NEGATIVE (NEGATIVE); UROBILINOGEN 0.2 E.U./dl (0.2-1.0)
[2019-05-14 16:25] VITALS: BP 142/85
--- NOTE | 2019-05-14 16:25 | NUR ---
PT IS RESTING IN BED WITH EYES CLOSED. VS ARE STABLE. N OSIGNS OF ACUTE DISTRESS AT THIS TIME. SHE DOES REPORT "IM JUST FEELING BAD. I NEED SOMETHING TO CALM THIS ANXIETY DOWN."
[2019-05-14 16:26] LABS: BACTERIA 1+; EPITHELIAL CELLS 15-20
[2019-05-14 16:35] LABS: ACT PARTIAL THROMBO TIME 28.3 SECONDS (20.0-32.1); ALBUMIN 3.3 gm/dl (3.1-4.5); ALKALINE PHOSPHATASE 121 U/L (45-117); BUN 10 mg/dl (7-24); CHLORIDE 97 mmol/L (98-107); CREATININE 0.81 mg/dL (0.55-1.02); INTERNATIONAL NORM RATIO 0.9 (2.0-3.5); POTASSIUM 2.8 mmol/L (3.5-5.1); SGOT/AST 17 IU/L (3-35); SGPT/ALT 24 U/L (12-78); SODIUM 134 mmol/L (136-145); TOTAL PROTEIN 7.5 gm/dL (6.4-8.2)
[2019-05-14 16:44] LABS: TROPONIN I < 0.015 ng/ml (<0.045)
--- NOTE | 2019-05-14 19:10 | NUR ---
PATIENT REPORT RECEIVED FROM JOSE F HUTCHINS. PATIENT AT THIS TIME IS RESTING IN BED WITH NO COMPLAINTS AT THIS TIME.
[2019-05-14 20:00] VITALS: BP 126/47; BP 152/80
--- NOTE | 2019-05-14 20:00 | NUR ---
A 68, admitted to 5E, under the services of VANIA Wood DO with a diagnosis of DYSPNEA, COPD, PNEUMONITIS, SEPSIS. Chief complaint is ANXIETY. Patient arrived via wheel chair from ER. Monitor applied. Initial assessment completed. Vital signs taken and recorded. VANIA WOOD DO notified of admission to the unit. Orders received. See assessment for past medical history, medications and allergies. Patient and/or family oriented to unit. Clothing/patient valuable form completed. SEAN FISHER
--- NOTE | 2019-05-14 21:52 | NUR ---
DR RENDON NOTIFIED PT REFUSED TO GO OVER MED LIST STATING SHE DOESNT KNOW WHAT ALL SHE TAKES "THEY HAVE ME ON SO MUCH" AND TOLD THIS NURSE TO VERIFY WITH PHARMACY.
[2019-05-14 23:03] LABS: URINE AMPHETAMINES < 1000 (1000ng/ml); URINE BARBITURATES < 200 (200ng/ml); URINE BENZODIAZEPINES < 200 (200ng/ml); URINE CANNABINOIDS (THC) < 50 (50ng/ml); URINE COCAINE < 300 (300ng/ml); URINE METHADONE < 300 (300ng/ml); URINE OPIATES < 300 (300ng/ml)
[2019-05-14 23:09] LABS: URINE PHENCYCLIDINE < 25 (25ng/ml)
[2019-05-15] VITALS: BP 152/71
[2019-05-15 06:34] LABS: BASO % 0.1 % (0.0-1.0); HEMATOCRIT 43.2 % (37.0-47.0); HEMOGLOBIN 13.5 g/dl (12.0-16.0); LYMPH # 1.3 10*3/uL (1.3-4.4); LYMPH % 14.6 % (27.0-41.0); MEAN CELL VOLUME 83.1 fl (81.0-99.0); MEAN CORPUSCULAR HGB CONC 31.3 g/dl (33.0-37.0); MEAN PLATELET VOLUME 9.5 fl (9.6-12.3); MONO # 0.1 10*3/uL (0.1-1.0); MONO % 0.7 % (3.0-9.0); NEUT # 7.6 10*3/uL (2.3-7.9); NEUT % 84.2 % (47.0-73.0); PLATELET COUNT AUTOMATED 350 10*3/uL (130-400); RED CELL DISTRI WIDTH 14.7 % (0-14.5)
[2019-05-15 07:25] LABS: CHLORIDE 102 mmol/L (98-107); POTASSIUM 3.1 mmol/L (3.5-5.1); SODIUM 137 mmol/L (136-145)
[2019-05-15 07:49] LABS: ALBUMIN 2.8 gm/dl (3.1-4.5); ALKALINE PHOSPHATASE 108 U/L (45-117); BUN 9 mg/dl (7-24); CREATININE 0.65 mg/dL (0.55-1.02); FREE T4 1.16 ng/dl (0.76-1.46); PHOSPHOROUS 3.3 mg/dL (2.5-4.9); SGOT/AST 15 IU/L (3-35); SGPT/ALT 21 U/L (12-78); TOTAL PROTEIN 6.7 gm/dL (6.4-8.2)
[2019-05-15 08:00] VITALS: BP 150/62
--- NOTE | 2019-05-15 09:53 | NUR ---
PT MEDICATED WITH TYLENOL FOR C/O HEADACHE AND ZOFRAN FOR NAUSEA WILL MONITOR
--- NOTE | 2019-05-15 10:13 | NUR ---
[facility] in to talk to patient. Patient states lives at HOME with EX , SON AND DAUGHTER IN LAW. There are NO steps in the home. Physician: DR ROSALES [facility]acy: [facility] Home health services: NONE Patient's level of ADLs: MINIMAL ASSIST Patient has working utilities: YES DME: NONE Follow-up physician's appointment after d/c: WILL BE MADE BY HOSPITALIST NURSE DIRECTOR ON DISCHARGE Does patient want to access PORTAL?: NO Discharge plan PT LIVES AT HOME WITH HER FAMILY AND STATES SHE IS MOSTLY INDEPENDENT IN HER CARE. TALKED WITH PT ABOUT HOME HEALTH OR SKILLED STAY BUT PT REFUSES BOTH. STATES MY SON HELPS ME IF I NEED IT. WILL CONTINUE TO FOLLOW. STATES SHE WILL HAVE A RIDE HOME.. GERA DERAS
[2019-05-15 12:00] VITALS: BP 159/96
[2019-05-15 13:07] VITALS: BP 150/80
--- NOTE | 2019-05-15 13:56 | NUR ---
PT CRYING AND SHAKING. HR RATE 120-130S. DR MEZA HERE AND NOTIFIED
--- NOTE | 2019-05-15 16:15 | NUR ---
Discharge instructions reviewed with patient/family. Patient receptive and verbalizes understanding. Follow-up care arranged. Written instructions given to patient/family. GAVIOTA JIMENEZ
--- NOTE | 2019-05-15 16:15 | NUR ---
REPORT GIVEN TO ANANDA [facility]
[2019-05-16] MEDS ORDERED: DULOXETINE HCL30 MG PO (08:51)
[2019-05-16] MEDS ORDERED: CLONAZEPAM1 MG PO ×2 (08:51)
[2019-05-26] MEDS ORDERED: LEVOTHYROXINE50 MCG PO (10:26)
[2019-05-26] MEDS ORDERED: AMLODIPINE BESYL5 MG PO (10:27)
[2019-05-26] MEDS ORDERED: GLIPIZIDE5 MG PO (10:27)
[2019-05-26] MEDS ORDERED: LISINOPRIL40 MG PO (10:28)
[2019-05-26] MEDS ORDERED: KLONOPIN1 M1 PO ×2 (10:30→10:34)
[2019-05-26] MEDS ORDERED: KLONOPIN0.5 MG PO (10:31)
[2019-05-26] MEDS ORDERED: BUSPIRONE HCL15 MG PO (10:32)
[2019-05-26] MEDS ORDERED: LORAZEPAM1 MG PO (10:36)
[2019-05-26] MEDS ORDERED: CLARITIN10 MG PO (10:37)
[2019-05-26] MEDS ORDERED: MAGNESIUM OXID400 MG PO (10:38)
[2019-05-26] MEDS ORDERED: 24 HOUR ALLER15.8 ML NAS (10:39)
[2019-05-26] MEDS ORDERED: KLOR-CON M2020 ME1 PO (10:40)
[2019-05-26] MEDS ORDERED: HYDROXYZINE HCL50 MG PO (10:42)
[2019-05-26] MEDS ORDERED: NATURE'S BLEND F1 MG PO (10:42)
[2019-05-30] MEDS ORDERED: LEVAQUIN750 M1 PO (11:42)
== END 2019-05-15 16:15 | disposition home health service (06) | DRG 139 ==
LOC: ED 15:32 → EDHOLD 17:56 → 5E 17:56
PROVIDERS: Emergency Medicine; Internal Medicine; Nurse Practitioner Family; ADMIT Family Medicine
DX: J18.9 Pneumonia, unspecified organism (principal); E43 Unspecified severe protein-calorie malnutrition; E87.6 Hypokalemia; G89.29 Other chronic pain; I10 Essential (primary) hypertension; F32.9 Major depressive disorder, single episode, unspecified; F17.210 Nicotine dependence, cigarettes, uncomplicated; E89.0 Postprocedural hypothyroidism; I48.20 Chronic atrial fibrillation, unspecified; M47.816 Spondylosis without myelopathy or radiculopathy, lumbar region; F41.1 Generalized anxiety disorder; K21.9 Gastro-esophageal reflux disease without esophagitis; G47.33 Obstructive sleep apnea (adult) (pediatric); E11.9 Type 2 diabetes mellitus without complications; E87.1 Hypo-osmolality and hyponatremia; E87.8 Other disorders of electrolyte and fluid balance, not elsewhere classified; E55.9 Vitamin D deficiency, unspecified; E11.65 Type 2 diabetes mellitus with hyperglycemia; J44.0 Chronic obstructive pulmonary disease with (acute) lower respiratory infection; Z88.0 Allergy status to penicillin; Z88.8 Allergy status to other drugs, medicaments and biological substances; Z79.899 Other long term (current) drug therapy; Z90.49 Acquired absence of other specified parts of digestive tract; Z90.710 Acquired absence of both cervix and uterus; Z82.49 Family history of ischemic heart disease and other diseases of the circulatory system; Z83.3 Family history of diabetes mellitus; Z71.6 Tobacco abuse counseling; Z68.24 Body mass index [BMI] 24.0-24.9, adult; R65.10 Systemic inflammatory response syndrome (SIRS) of non-infectious origin without acute organ dysfunction

== ENCOUNTER 2019-05-15 16:22 | Inpatient (IN) | payer OTHER ==
--- NOTE | ~2019-05-15 | WRIGHTHP ---
[place], [place] PATIENT HISTORY AND PHYSICAL EXAM NAME: DANO RODARTE [facility] #: [id number] UNIT #: [id number] ROOM: 311 DOCTOR: DAVIE ALCOCER MD BIRTHDATE: [birth year] DOS: 05/16/2019 INITIAL PSYCHIATRIC EVALUATION DATE OF DISCHARGE: 05/16/2019 CHIEF COMPLAINT: "Oh, I thought I was coming for outpatient treatment. I'm so scared of this place." HISTORY OF PRESENT ILLNESS: This is a 68-year-old white female who was initially admitted medically due to an exacerbation of COPD. The patient has a plethora of medical problems including diabetes, hypertension, hypothyroidism and COPD. Additionally, she has significant depression and panic disorder. The patient while on the medical unit voiced increased depression. Most of this, she relates to ongoing panic attacks. When she has a panic attack, she will have multiple autonomic nervous system dysfunction symptoms. She will get an increased heart rate, shortness of breath, diaphoresis, sense of impending doom and she feels like her life is about to end. She initially agreed to admission to the Psychiatric Unit, but upon coming to the unit, which is now filled with multiple patients with dementia that are loud and screaming, the unit itself is triggering a great deal of anxiety for her. She did report last evening, receiving the Klonopin and already feels a relief and feels much less anxious on it and voices that a willingness to continue to follow in my office for this. PAST MEDICAL HISTORY: Remarkable for adrenal adenoma, allergic rhinitis, atrial fibrillation with rapid ventricular response, vitamin B12 deficiency, chronic pain, nicotine dependence, COPD, degenerative joint disease, hypertension, GERD, hypothyroidism, obstructive sleep apnea, tremor, diabetes with long-term use of insulin and vitamin D deficiency. SOCIAL HISTORY: She does smoke 1 pack per day since the age of 20. She does use opiates episodically. She does not, however, drink alcohol or use illicit drugs. ALLERGIES: She lists allergies to NAPROXEN, TRAZODONE, GABAPENTIN, AND PENICILLIN. STRENGTHS: Ambulatory, good verbal skills. WEAKNESSES: Poor coping skills. MENTAL STATUS: She is alert and oriented. Mood is predominantly anxious this morning. She traces most of her depression to the fact that she cannot get a control on the panic attacks. The panic attacks occur quite frequently, usually at least once a day. There is no precipitating factor. They come out of the blue. They can last for minutes to hours. There is no hypomania or tarah. There are no auditory or visual hallucinations. She convincingly denies suicidal thoughts, homicidal thoughts and self-injurious thoughts. Memory is intact. [place], [place] PATIENT HISTORY AND PHYSICAL EXAM NAME: DANO RODARTE UNIT #: [id number] ROOM: 311 DOCTOR: DAVIE ALCOCER MD BIRTHDATE: [birth year] DIAGNOSIS: Major depression, recurrent, severe, panic disorder. PLAN: At this point, the patient does not meet continued stay criteria and is willing to follow up in my office in [place]. I will discharge her on Cymbalta 90 mg a day and Klonopin 0.5 mg in the morning and 1 mg at bedtime. She will follow up with Sharon Gonzalez, a physician land surveyor assistant that works in my office and also Malou Soriano, a psychologist. DAVIE ALCOCER MD CM:HISPHYS:PATIENT HISTORY AND PHYSICAL EXAMINATION 7 DAVIE ALCOCER MD 05/16/[id number] interface
--- NOTE | 2019-05-15 16:18 | NUR ---
DANO RODARTE a 68 year old F admitted via wheel chair from the 5TH FLOOR as a voluntary admission. Arrived on unit at 1618. ALLERGIES: PCN, TRAZODONE, NAPROXEN, GABAPENTIN. Vital signs are: 97.4-90-22 146/84 SPO2 98%RA. The client signed the following forms with stated understanding: Authorization For The Release of Medical Information, Clothing List, Consent to Voluntary Admission and Hospitalization, Consent and Release Forms/Receipt of Rights, Acknowledgement of Advance Directive Information, Behavioral Health Consent Form, and Informed Consent of Medications. [facility]. A search was conducted and hazardous articles were removed. Client was oriented to the unit. HARJIT SORIANO
[2019-05-15 16:34] VITALS: BP 146/84
[2019-05-15 16:56] VITALS: BP 146/84
--- NOTE | 2019-05-15 17:14 | NUR ---
CALLED HOSPITALIST CELL NUMBER ONE AT [phone], DR. MEZA ANSWERED AND MADE AWARE OF CONSULT FOR MEDICAL MANAGEMENT.
[2019-05-15 20:23] VITALS: BP 152/74
--- NOTE | 2019-05-15 21:45 | NUR ---
P-TEARFUL, ANXIOUS I-REDIRECTION WITH 1:1 THERAPEUTIC INTERVENTIONS. EDUCATE AND ENCOURAGE MEDICATION COMPLIANCE R-PATIENT AMBULATING IN HALLWAY AND WANDERING BY DOOR AND ATTEMPTING TO PUSH BUTTONS. PATIENT TEARFUL AND WANTING TO LEAVE. PATIENT UNABLE TO REDIRECT WITH 1:1 THERAPEUTIC INTERVENTIONS AND NONPHARMACOLOGICAL APPROACHES. PATIENT REQUESTING MEDICATION TO HELP WITH INCREASED ANXIETY AND TEARFUL EPISODE. PATIENT RECEIVED ATIVAN 1MG PO. MEDICATION WITH EFFECTIVE RESULTS AT THIS TIME. PATIENT MEDICATION COMPLIANT. PATIENT STATING "I DON'T KNOW WHY I AM HERE AND I JUST WANT TO LEAVE". THIS NURSE INFORMED PATIENT THAT THE DOCTOR WILL BE IN TO SEE HER IN THE MORNING AND TO GIVE THE DOCTOR A CHANCE TO ADJUST MEDICATIONS IF NEEDED. PATIENT RESPONDED, "I CAN DO THAT". P-CONTINUE TO ENCOURAGE MEDICATION COMPLIANCE, ENCOURAGE GROUP THERAPY WHILE AWAKE
--- NOTE | 2019-05-16 05:46 | NUR ---
PATIENT SLEPT 8 HOURS OF UNINTERRUPTED SLEEP THROUGHOUT SHIFT. Q 15 MINUTE CHECKS MAINTAINED. 24 HR chart check completed.
[2019-05-16 07:16] LABS: BUN 11 mg/dl (7-24); CHLORIDE 105 mmol/L (98-107); CHOLESTEROL 188 mg/dL (<200); CREATININE 0.62 mg/dL (0.55-1.02); HDL CHOLESTEROL 40 mg/dl (40-60); LDL CHOLESTEROL 124 mg/dL (9-159); POTASSIUM 3.6 mmol/L (3.5-5.1); SODIUM 140 mmol/L (136-145); TRIGLYCERIDES 121 mg/dl (<150); VLDL CHOLESTEROL 24 mg/dL (6-40)
[2019-05-16 07:22] LABS: THYROID STIM HORMONE (HS) 0.056 uIU/ml (0.358-4.75)
[2019-05-16 08:00] VITALS: BP 150/81
[2019-05-16 08:30] LABS: VITAMIN D, 25-HYDROXY 35.3 ng/mL (30-100)
[2019-05-16] MEDS ORDERED: DULOXETINE HCL30 MG PO (08:51)
[2019-05-16] MEDS ORDERED: CLONAZEPAM1 MG PO ×2 (08:51)
--- NOTE | 2019-05-16 10:00 | NUR ---
P- TEARFUL AT TIMES. ISOLATIVE TO ROOM. I- ASSESS MOOD, ORIENTATION, SI/HI, HALLUCINATIONS, DELUSIONS OR PAIN. 1:1 THERAPEUTIC INTERACTION WITH EMOTIONAL SUPPORT AND VENITLATION OF FEELINGS PROVIDED. ENCOURAGE TO ATTEND/PARTICIPATE IN GROUP THERPIES FOR EMOTIONAL SUPPORT AND SOCIALIZATION. PROVIDE MEDICATIONS ON TIME WITH EDUCATION ON EACH. ENCOURAGE INTERACTION WITH PEERS AND STAFF. PROVIDE WITH COPING AND RELAXATION TECHNIQUES. R- ALERT AND ORIENTED X3. MOOD DEPRESSED, TEARFUL. PATIENT REFUSING TO UTILIZE COPING/RELAXATION TECHNIQUES. 1:1 INTERACTION SLIGHTLY EFFECTIVE. PT STATED "I JUST CANT WAIT TO GET OUT OF HERE, I WANT TO GET HOME". DENIES SI/HI, HALLUCINATIONS OR PAIN. NO S/S OF INTERACTING WITH INTERNAL STIMULI. NO S/S OF DISTRESS NOTED. RESPS EVEN AND UNLABORED ON ROOM. MEDICATION COMPLIANT. GAIT STEADY WHILE AMBULATING. PT COMES OUT OF ROOM FOR MEALS, REMAINS ISOLATIVE TO SELF. INTERACTS WHEN TALK TO FIRST. HARD OF HEARING. EATING AND DRINKING ADEQUATELY. REFUSE TO ATTEND/PARTICIPATE IN GROUP THERAPIES, EVEN WITH ENCOURAGEMENT PROVIDED. P- ASSESS MOOD, ORIENTATION, SI/HI, HALLUCINATIONS, DELUSIONS OR PAIN EVERY SHIFT. PROVIDE WITH MEDICATIONS ON TIME WITH EDUCATION ON EACH. 1:1 THERAPEUTIC INTERACTION PROVIDED WHEN NECESSARY. ENCOURAGE TO ATTEND/PARTICIPATE IN GROUP THERAPY. ENCOURAGE TO UTILIZE COPING/RELAXATION TECNIQUES. Q15 MINUTE CHECKS MAINTAINED FOR SAFETY.
--- NOTE | 2019-05-16 11:39 | NUR ---
AM GROUP PT DID NOT ATTEND GROUP SHE WAS WAITING FOR DISCHARGE FROM THE UNIT
--- NOTE | 2019-05-16 11:45 | NUR ---
PATIENT OFF THE FLOOR AT THIS TIME. DISCHARGE INSTRUCTIONS GONE OVER WITH PATIENT. PATIENTS BELONGINGS, LOCKBOX, MEDS, AND DISCHARGE PACKET GIVEN TO PATIENT. PATIENT OFF THE FLOOR VIA WHEELCHAIR ESCORTED BY MILIEU SPECIALIST AND PATIENTS GRANDDAUGHTER.
--- NOTE | 2019-05-16 12:25 | NUR ---
Patient on [facility] for less than 24 hours. Met with pt this AM prior to her discharge. This resume writer and Hortencia Conner LPN information systems planner assisted pt in making call to her family for transport from the hospital. Follow-up was scheduled at [facility]. Pt was pleasant during interaction.
[2019-05-26] MEDS ORDERED: LEVOTHYROXINE50 MCG PO (10:26)
[2019-05-26] MEDS ORDERED: AMLODIPINE BESYL5 MG PO (10:27)
[2019-05-26] MEDS ORDERED: GLIPIZIDE5 MG PO (10:27)
[2019-05-26] MEDS ORDERED: LISINOPRIL40 MG PO (10:28)
[2019-05-26] MEDS ORDERED: KLONOPIN1 M1 PO ×2 (10:30→10:34)
[2019-05-26] MEDS ORDERED: KLONOPIN0.5 MG PO (10:31)
[2019-05-26] MEDS ORDERED: BUSPIRONE HCL15 MG PO (10:32)
[2019-05-26] MEDS ORDERED: LORAZEPAM1 MG PO (10:36)
[2019-05-26] MEDS ORDERED: CLARITIN10 MG PO (10:37)
[2019-05-26] MEDS ORDERED: MAGNESIUM OXID400 MG PO (10:38)
[2019-05-26] MEDS ORDERED: 24 HOUR ALLER15.8 ML NAS (10:39)
[2019-05-26] MEDS ORDERED: KLOR-CON M2020 ME1 PO (10:40)
[2019-05-26] MEDS ORDERED: HYDROXYZINE HCL50 MG PO (10:42)
[2019-05-26] MEDS ORDERED: NATURE'S BLEND F1 MG PO (10:42)
== END 2019-05-16 11:45 | disposition home or self-care (01) | DRG 751 ==
LOC: 3N 16:22
PROVIDERS: ADMIT Psychiatry & Neurology Psychiatry
DX: F33.2 Major depressive disorder, recurrent severe without psychotic features (principal); F41.0 Panic disorder [episodic paroxysmal anxiety]; R65.10 Systemic inflammatory response syndrome (SIRS) of non-infectious origin without acute organ dysfunction; E87.6 Hypokalemia; E11.65 Type 2 diabetes mellitus with hyperglycemia; E43 Unspecified severe protein-calorie malnutrition; F17.210 Nicotine dependence, cigarettes, uncomplicated; M47.896 Other spondylosis, lumbar region; J44.9 Chronic obstructive pulmonary disease, unspecified; E89.0 Postprocedural hypothyroidism; G47.33 Obstructive sleep apnea (adult) (pediatric); K21.9 Gastro-esophageal reflux disease without esophagitis; G89.29 Other chronic pain; I10 Essential (primary) hypertension; E55.9 Vitamin D deficiency, unspecified; E53.8 Deficiency of other specified B group vitamins; I48.91 Unspecified atrial fibrillation; J30.9 Allergic rhinitis, unspecified; Z71.6 Tobacco abuse counseling; Z88.8 Allergy status to other drugs, medicaments and biological substances; Z88.6 Allergy status to analgesic agent; Z90.49 Acquired absence of other specified parts of digestive tract; Z90.710 Acquired absence of both cervix and uterus; Z82.49 Family history of ischemic heart disease and other diseases of the circulatory system; Z83.3 Family history of diabetes mellitus; Z88.0 Allergy status to penicillin; Z68.24 Body mass index [BMI] 24.0-24.9, adult

== ENCOUNTER 2019-05-20 11:10 | Inpatient (IN) | payer OTHER ==
[~2019-05-20] VITALS: Ht 157.4 cm; Wt 61.8 kg
[~2019-05-20 11:10] MED LIST changes: +CLONAZEPAM1 MG PO
[2019-05-20 11:14] VITALS: BP 151/77
[2019-05-20 12:00] VITALS: BP 184/84
[2019-05-20 12:00] LABS: BASO % 0.3 % (0.0-1.0); EOS # 0.2 10*3/uL (0.0-0.4); EOS % 2.4 % (1.0-4.0); HEMATOCRIT 43.4 % (37.0-47.0); HEMOGLOBIN 13.4 g/dl (12.0-16.0); LYMPH # 2.7 10*3/uL (1.3-4.4); MEAN CELL VOLUME 83.5 fl (81.0-99.0); MEAN CORPUSCULAR HGB 25.8 pg (27.0-31.0); MEAN CORPUSCULAR HGB CONC 30.9 g/dl (33.0-37.0); MEAN PLATELET VOLUME 9.2 fl (9.6-12.3); MONO # 0.7 10*3/uL (0.1-1.0); MONO % 6.8 % (3.0-9.0); NEUT # 6.4 10*3/uL (2.3-7.9); NEUT % 63.2 % (47.0-73.0); PLATELET COUNT AUTOMATED 359 10*3/uL (130-400); RED CELL DISTRI WIDTH 14.3 % (0-14.5); WHITE BLOOD COUNT 10.1 10*3/uL (4.8-10.8)
--- NOTE | 2019-05-20 12:00 | NUR ---
PT C/O HEADACHE, TYLENOL GIVEN. PT REPORTS TAKING A ZOFRAN AT HOME.
[2019-05-20 12:11] LABS: BILIRUBIN NEGATIVE (NEGATIVE); BLOOD NEGATIVE (NEGATIVE); CLARITY CLEAR (CLEAR); COLOR YELLOW (YELLOW); GLUCOSE NEGATIVE (NEGATIVE); KETONE NEGATIVE (NEGATIVE); LEUKO ESTERASE NEGATIVE (NEGATIVE); NITRITE NEGATIVE (NEGATIVE); SPECIFIC GRAVITY <= 1.005 (1.005-1.030); UROBILINOGEN 0.2 E.U./dl (0.2-1.0)
[2019-05-20 12:14] LABS: ALBUMIN 3.1 gm/dl (3.1-4.5); ALKALINE PHOSPHATASE 96 U/L (45-117); BUN 11 mg/dl (7-24); CHLORIDE 104 mmol/L (98-107); CREATININE 0.83 mg/dL (0.55-1.02); POTASSIUM 3.4 mmol/L (3.5-5.1); SGOT/AST 16 IU/L (3-35); SGPT/ALT 24 U/L (12-78); SODIUM 139 mmol/L (136-145); TOTAL PROTEIN 6.9 gm/dL (6.4-8.2)
[2019-05-20 12:26] LABS: BACTERIA TRACE; CALCIUM OXALATE CRYSTALS TRACE
[2019-05-20] MEDS ORDERED: HYDROCHLOROTHIA25 M1 PO (16:27)
[2019-05-20] MEDS ORDERED: MIRTAZAPINE15 M2 PO (16:28)
[2019-05-20] MEDS ORDERED: BUSPAR15 MG PO (16:32)
[2019-05-20] MEDS ORDERED: AMITRIPTYLINE25 MG PO (16:36)
--- NOTE | 2019-05-20 16:40 | NUR ---
MEDS RECONCILED WITH PHARMACIST AT PT PREFERRED PHARMACY.
[2019-05-20 16:42] VITALS: BP 159/93
[2019-05-20 17:00] VITALS: BP 184/84
--- NOTE | 2019-05-20 17:00 | NUR ---
Time:A 68 year old admitted to under services of JOSE ELIAS CALDERA DO. Pt. arrived via bed from ER. Chief complaint: INABILITY TO AMBULATE AND GENERALIZED WEAKNESS. CLAUDE ARIAS
[2019-05-20 20:00] VITALS: BP 131/72
--- NOTE | 2019-05-20 20:00 | NUR ---
IN TO ASSESS PATIENT. PATIENT SOUND ASLEEP. NO DISTRESS NOTED. BREATHING IS EASY AND REGULAR ON ROOM AIR. WHEN WOKEN UP PATIENT BEGAN TO CRY AND SAY HOW MUCH PAIN SHE WAS IN. PATIENT ALERT AND ORIENTED. DIMINISHED LIUNGS T/O. NO COMPLAINTS BESIDES PAIN. PATIENT ROLLED HER EYES WHEN ASKED WHAT PAIN MEDICATION SHE HAD AND THIS NURSE STATED TYLENOL. CALL LIGHT WITHIN REACH, WILL MONITOR
--- NOTE | 2019-05-20 20:26 | NUR ---
UPON BRINGING BACK TYLENOL FOR PAIN, PATIENT ONCE AGAIN SLEEPING AND WHEN WOKEN UP AGAIN STATED SHE WAS IN PAIN. PATIENT BEGAN CRYING, TYLENOL WAS PROVIDED FOR PAIN IN HER LEGS AND FEET. SHE RATED IT 10/10. CALL LIGHT WITHIN REACH, WILL MONITOR
--- NOTE | 2019-05-20 21:36 | NUR ---
PRN TYLENOL APPEARS EFFECTIVE, PT SLEEPING
--- NOTE | 2019-05-20 22:35 | NUR ---
SPOKE WITH DR. RENDON. PATIENT AWAKE AND ROLLNG AROUND IN BED SAYING THAT SHE IS IN PAIN. 15MG IV TORADOL ORDER X1 RECIEVED
--- NOTE | 2019-05-20 22:40 | NUR ---
ONE TIME DOSE OF TORADOL GIVEN FOR PATIENT COMPLAINTS OF PAIN.
--- NOTE | 2019-05-20 23:00 | NUR ---
PRN MEDICATION APPEARS EFFECTIVE, PT SLEEPING. BREATHING IS EASY AND REGULAR
--- NOTE | 2019-05-20 23:27 | NUR ---
24 HR chart check completed.
--- NOTE | 2019-05-20 23:31 | NUR ---
PATIENT ROLLING AROUND IN BED STATING THAT SHE IS IN PAIN. THIS NURSE INQUIRED WHAT SHE USUALLY TAKES FOR PAIN AND SHE STATED TYLENOL. THIS NURSE STATED THAT SHE SAID EARLIER THAT TYLENOL WASN'T EVER EFFECTIVE. AND SHE STATED THAT THAT'S THE ONLY THING SHE CAN GET A HOLD OF IN HER HOUSE. THIS NURSE OFFERED TO GET THE PATIENT A HEATING PAD FOR HER BACK AND PATIENT STATED THAT IT WAS HER LEGS THAT WERE CAUSING HER PAIN EVEN THOUGH SHE JUST STATED IT WAS BACK. PATIENT REFUSED TO TRY HEATING PAD AND THEN PROCEEDED TO IGNORE THIS NURSE. CALL LIGHT WITHIN REACH, WILL MONITOR
--- NOTE | 2019-05-20 23:50 | NUR ---
PATIENT CRYING OUT IN PAIN. STATES SHE JUST WANTS IT TO STOP. PATIENT STATES HER LEGS ARE ACHEY AND RESTLESS AND THIS HAPPENS ALL THE TIME. THIS NURSE INQUIRED ABOUT IF THE PATIENT HAD TAKEN ANY MEDICATION THAT SHE SHOULDN'T HAVE BECAUSE IN THE PAST SHE HAS ADMITTED TO TAKING SOMEONE ELSES SUBOXONE. SHE STATED SHE HAS NOT TAKEN ANY SUBOXONE OR ANY NARCOTICS THAT SHE WOULD BE WITHDRAWALING FROM. DR. RENDON MADE AWARE AND ORDER RECIEVED FOR REQUIP
--- NOTE | 2019-05-20 23:54 | NUR ---
PRN REQUIP FOR RESTLESS LEGS. CALL LIGHT WITHIN REACH, WILL MONITOR
[2019-05-21] VITALS: BP 165/80
--- NOTE | 2019-05-21 00:30 | NUR ---
PATIENT HAD OXYGEN OFF. ON ROOM AIR 91% 2L O2 REAPPLIED. SATS WENT UP TO 95%. ENCOURAGED PATIENT TO KEEP OXYGEN ON
--- NOTE | 2019-05-21 00:42 | NUR ---
PATIENT CONTINUES TO CRY AND ROLL AROUND IN THE BED. REQUIP INEFFECTIVE. PT OCCASIONALY LOOKS LIKE SHE HAS SPASMS IN HER BACK. DR. RENDON MADE AWARE. ORDER RECIEVED FOR FLEXERIL.
--- NOTE | 2019-05-21 00:49 | NUR ---
ONE TIME DOSE OF FLEXERIL GIVEN AT THIS TIME.
--- NOTE | 2019-05-21 01:00 | NUR ---
PATIENT NOW RESTING IN BED. SLEEPING SOUNDLY. NO DISTRESS NOTED. PATIENT NOT ROLLING AROUND IN BED. CALL LIGHT FREDDIE ALLISON, WILL MONITOR
--- NOTE | 2019-05-21 02:34 | NUR ---
PATIENT CONTINUES TO SLEEP. NO DISTRESS NOTED.
--- NOTE | 2019-05-21 06:12 | NUR ---
PATIENT REMAINED SLEEPING ALL NIGHT WITHOUT DISTRESS.
[2019-05-21 06:50] LABS: URINE AMPHETAMINES < 1000 (1000ng/ml); URINE BARBITURATES < 200 (200ng/ml); URINE BENZODIAZEPINES < 200 (200ng/ml); URINE CANNABINOIDS (THC) < 50 (50ng/ml); URINE COCAINE < 300 (300ng/ml); URINE METHADONE < 300 (300ng/ml); URINE OPIATES < 300 (300ng/ml)
[2019-05-21 06:52] LABS: URINE PHENCYCLIDINE < 25 (25ng/ml)
[2019-05-21 06:54] LABS: BASO % 0.4 % (0.0-1.0); EOS # 0.2 10*3/uL (0.0-0.4); EOS % 3.1 % (1.0-4.0); LYMPH # 3.7 10*3/uL (1.3-4.4); MEAN CELL VOLUME 84.3 fl (81.0-99.0); MEAN CORPUSCULAR HGB 26.1 pg (27.0-31.0); MEAN PLATELET VOLUME 9.8 fl (9.6-12.3); MONO # 0.5 10*3/uL (0.1-1.0); MONO % 6.1 % (3.0-9.0); NEUT # 3.4 10*3/uL (2.3-7.9); NEUT % 43.1 % (47.0-73.0); PLATELET COUNT AUTOMATED 324 10*3/uL (130-400); RED BLOOD COUNT 4.98 10*6/uL (4.10-5.10); RED CELL DISTRI WIDTH 14.5 % (0-14.5); WHITE BLOOD COUNT 7.9 10*3/uL (4.8-10.8)
[2019-05-21 07:23] LABS: ALBUMIN 2.9 gm/dl (3.1-4.5); ALKALINE PHOSPHATASE 95 U/L (45-117); BUN 10 mg/dl (7-24); CHLORIDE 105 mmol/L (98-107); CREATININE 0.81 mg/dL (0.55-1.02); PHOSPHOROUS 3.6 mg/dL (2.5-4.9); SGOT/AST 15 IU/L (3-35); SGPT/ALT 22 U/L (12-78); SODIUM 140 mmol/L (136-145); TOTAL PROTEIN 6.6 gm/dL (6.4-8.2)
[2019-05-21 08:00] VITALS: BP 150/68; BP 154/80
--- NOTE | 2019-05-21 09:00 | NUR ---
Padding Machine Operator in to talk to patient. Patient states lives at home with family. There are few steps in the home. Physician: [facility] Home health services: none Patient's level of ADLs: INDEPENDENT Patient has working utilities: all working DME: none Follow-up physician's appointment after d/c: [facility] Does patient want to access PORTAL?: no Discharge plan discussed with patient, she states she lives at home with family, usually is independent in adls and ambulation but recently hasn't been able to ambulate well. discussed with her a short term usp for rehab prior to returning home, she became angry and stated she would be returning home when able and would never go to a SNF. also discussed with her VNA and she declines this as well, case management will follow for any home needs. YOLY OSEI
--- NOTE | 2019-05-21 09:30 | NUR ---
Occupational Therapy evaluation completed on 4 with full eval to follow. Precautions include fall risk,new ww use,IV UE,back and thigh pain interfering with mobility,moderate complexity level 36960 via chart review, testing and evaluation. Recommend OT per POC and home health SN,OT,PT. Thank you. Tabitha Graff OTR/L
--- NOTE | 2019-05-21 10:49 | NUR ---
PHYSICAL THERAPY Susanna completed full details to follow, moderate level of [id number]. PT to work on transfers,amb with AD, ther exercise for strengthening. Recommned SNF at discharge however pt does not want, prefers home with HH. Thank you Terri Katz PT
[2019-05-21 12:00] VITALS: BP 136/89
--- NOTE | 2019-05-21 15:25 | NUR ---
Medicated for c/o headache 03/18 and leg pain 04/17. see e-mar.
[2019-05-21 16:00] VITALS: BP 121/69
--- NOTE | 2019-05-21 17:01 | NUR ---
MORPHINE 2 MG GIVEN FOR C/O BACK PAIN,04/17.
[2019-05-21] MEDS ORDERED: LISINOPRIL20 MG PO (17:02)
--- NOTE | 2019-05-21 17:52 | NUR ---
NORCO 5/325 MG GIVEN FOR C/O BACK PAIN,02/15.
--- NOTE | 2019-05-21 19:05 | NUR ---
ARRIVED ON SHIFT, INTRODUCED TO PATIENT, BEDSIDE REPORT RECEIVED, NO NEEDS VOICED AT THIS TIME, WHITR BOARD UPDATED.
[2019-05-21 20:00] VITALS: BP 126/71
--- NOTE | 2019-05-21 20:11 | NUR ---
CALL PLACED TO [facility], SPOKE TO YOLY Krishnamurthy RN, GAVE NURSE TO NURSE REPORT, PER NURSE REQUEST IV BE LEFT IN. ADVISED PATIENT TRANSPORT WILL BE HERE WITHIN THE HOUR.
--- NOTE | 2019-05-21 20:37 | NUR ---
24 HR chart check completed.
--- NOTE | 2019-05-21 20:50 | NUR ---
PATIENT PICKED UP BY [facility], FOR TRASFER TO [facility].
--- NOTE | 2019-05-22 08:11 | NUR ---
PHYSICAL THERAPY CO-SIGN I approve of the Physical Therapy notes written above. Terri Katz PT
[2019-05-26] MEDS ORDERED: LEVOTHYROXINE50 MCG PO (10:26)
[2019-05-26] MEDS ORDERED: AMLODIPINE BESYL5 MG PO (10:27)
[2019-05-26] MEDS ORDERED: GLIPIZIDE5 MG PO (10:27)
[2019-05-26] MEDS ORDERED: LISINOPRIL40 MG PO (10:28)
[2019-05-26] MEDS ORDERED: KLONOPIN1 M1 PO ×2 (10:30→10:34)
[2019-05-26] MEDS ORDERED: KLONOPIN0.5 MG PO (10:31)
[2019-05-26] MEDS ORDERED: BUSPIRONE HCL15 MG PO (10:32)
[2019-05-26] MEDS ORDERED: LORAZEPAM1 MG PO (10:36)
[2019-05-26] MEDS ORDERED: CLARITIN10 MG PO (10:37)
[2019-05-26] MEDS ORDERED: MAGNESIUM OXID400 MG PO (10:38)
[2019-05-26] MEDS ORDERED: 24 HOUR ALLER15.8 ML NAS (10:39)
[2019-05-26] MEDS ORDERED: KLOR-CON M2020 ME1 PO (10:40)
[2019-05-26] MEDS ORDERED: NATURE'S BLEND F1 MG PO (10:42)
[2019-05-26] MEDS ORDERED: HYDROXYZINE HCL50 MG PO (10:42)
[2019-05-30] MEDS ORDERED: LEVAQUIN750 M1 PO (11:42)
== END 2019-05-21 20:56 | disposition other institution (70) | DRG 139 ==
LOC: ED 11:10 → EDHOLD 15:11 → 4E 15:11
PROVIDERS: Emergency Medicine; Registered Nurse; ADMIT Internal Medicine
DX: J18.9 Pneumonia, unspecified organism (principal); R53.2 Functional quadriplegia; R26.2 Difficulty in walking, not elsewhere classified; J44.9 Chronic obstructive pulmonary disease, unspecified; K21.9 Gastro-esophageal reflux disease without esophagitis; G47.33 Obstructive sleep apnea (adult) (pediatric); E03.9 Hypothyroidism, unspecified; I10 Essential (primary) hypertension; D35.00 Benign neoplasm of unspecified adrenal gland; F41.1 Generalized anxiety disorder; F17.210 Nicotine dependence, cigarettes, uncomplicated; E44.0 Moderate protein-calorie malnutrition; M47.816 Spondylosis without myelopathy or radiculopathy, lumbar region; E11.9 Type 2 diabetes mellitus without complications; I48.20 Chronic atrial fibrillation, unspecified; G89.29 Other chronic pain; F32.9 Major depressive disorder, single episode, unspecified; E89.0 Postprocedural hypothyroidism; B34.9 Viral infection, unspecified; M48.00 Spinal stenosis, site unspecified; Z88.0 Allergy status to penicillin; Z88.8 Allergy status to other drugs, medicaments and biological substances; Z79.899 Other long term (current) drug therapy; Z90.49 Acquired absence of other specified parts of digestive tract; Z90.710 Acquired absence of both cervix and uterus; Z82.49 Family history of ischemic heart disease and other diseases of the circulatory system; Z71.6 Tobacco abuse counseling; Z68.24 Body mass index [BMI] 24.0-24.9, adult

== ENCOUNTER 2019-05-31 03:19 | Inpatient (IN) | payer OTHER ==
[2019-05-31] VITALS (9 sets, daily range): BP systolic 123–144; BP diastolic 70–109
[~2019-05-31] VITALS: Ht 165.1 cm; Wt 66.8 kg
[~2019-05-31 03:19] MED LIST changes: +24 HOUR ALLER15.8 ML NAS; +BUSPIRONE HCL15 MG PO; +HYDROXYZINE HCL50 MG PO; +KLONOPIN0.5 MG PO; +KLONOPIN1 M1 PO; +LEVAQUIN750 M1 PO; +LEVOTHYROXINE50 MCG PO; +LISINOPRIL20 MG PO; +LISINOPRIL40 MG PO; +LORAZEPAM1 MG PO; +NATURE'S BLEND F1 MG PO
--- NOTE | 2019-05-31 03:21 | NUR ---
PT ARRIVES VIA EMS, PLACED IN GOWN, PLACED ON POOL NURSE, NIBP, CONTINUOUS PULSE MD JEM IN TO EVALUATE PT
--- NOTE | 2019-05-31 03:45 | NUR ---
PORTABLE CXR COMPLETE ORDERED
--- NOTE | 2019-05-31 03:52 | NUR ---
16 YAKUT DUONG CATHETER INSERTED, ORDERED BY MD USING STERILE TECHNIQUE, RETURN OF 200 CC CLEAR YELLOW URINE NOTED, PT TOLERATED WELL, SPECIMEN SENT TO LAB BY DANI HUTCHINS
[2019-05-31 03:56] LABS: BILIRUBIN NEGATIVE (NEGATIVE); BLOOD TRACE-INTACT (NEGATIVE); CLARITY CLEAR (CLEAR); COLOR YELLOW (YELLOW); GLUCOSE NEGATIVE (NEGATIVE); KETONE NEGATIVE (NEGATIVE); LEUKO ESTERASE NEGATIVE (NEGATIVE); NITRITE NEGATIVE (NEGATIVE); UROBILINOGEN 0.2 E.U./dl (0.2-1.0)
[2019-05-31 04:05] LABS: URINE AMPHETAMINES < 1000 (1000ng/ml); URINE BARBITURATES < 200 (200ng/ml); URINE BENZODIAZEPINES < 200 (200ng/ml); URINE CANNABINOIDS (THC) < 50 (50ng/ml); URINE COCAINE < 300 (300ng/ml); URINE METHADONE < 300 (300ng/ml); URINE OPIATES > 300 (300ng/ml); URINE PHENCYCLIDINE < 25 (25ng/ml)
[2019-05-31 04:12] LABS: HEMATOCRIT 40.6 % (37.0-47.0); HEMOGLOBIN 12.3 g/dl (12.0-16.0); MEAN CELL VOLUME 84.2 fl (81.0-99.0); MEAN CORPUSCULAR HGB 25.5 pg (27.0-31.0); MEAN CORPUSCULAR HGB CONC 30.3 g/dl (33.0-37.0); MEAN PLATELET VOLUME 9.4 fl (9.6-12.3); PLATELET COUNT AUTOMATED 366 10*3/uL (130-400); RED BLOOD COUNT 4.82 10*6/uL (4.10-5.10); RED CELL DISTRI WIDTH 14.6 % (0-14.5)
[2019-05-31 04:22] LABS: ACT PARTIAL THROMBO TIME 30.8 SECONDS (20.0-32.1); INTERNATIONAL NORM RATIO 0.9 (2.0-3.5)
[2019-05-31 04:28] LABS: ACETAMINOPHEN (TYLENOL) 14.7 ug/ml (10-30); ALBUMIN 2.9 gm/dl (3.1-4.5); ALKALINE PHOSPHATASE 126 U/L (45-117); BUN 10 mg/dl (7-24); CHLORIDE 102 mmol/L (98-107); CREATININE 0.75 mg/dL (0.55-1.02); LIPASE 55 U/L (73-393); POTASSIUM 3.8 mmol/L (3.5-5.1); SGOT/AST 27 IU/L (3-35); SODIUM 135 mmol/L (136-145); TOTAL PROTEIN 6.9 gm/dL (6.4-8.2)
--- NOTE | 2019-05-31 04:30 | NUR ---
SALINE LOCK LEFT AC REMOVED DUE TO UNABLE TO FLUSH, CATHETER INTACT, 2X2 APPLIED, PRESSURE HELD, NO BLEEDING NOTED, PT TOLERATED WELL
[2019-05-31 04:31] LABS: BASOPHILS 1 % (0-1); PLATELET SUFFICIENCY NORMAL (NORMAL); SGPT/ALT 29 U/L (12-78); TOTAL CELLS COUNTED 100 #CELLS
[2019-05-31 04:32] LABS: ETHYL ALCOHOL < 3.0 mg/dl (<3); TROPONIN I < 0.015 ng/ml (<0.045)
--- NOTE | 2019-05-31 04:36 | NUR ---
NO CHANGE IN PT ASSESSMENT, AWAITING LAB RESULTS, WILL CONTINUE TO MONITOR
--- NOTE | 2019-05-31 05:10 | NUR ---
CT HEAD COMPLETE ORDERED
--- NOTE | 2019-05-31 05:20 | NUR ---
DR. SHANKS AT BEDSIDE
--- NOTE | 2019-05-31 05:33 | NUR ---
MRSA SWAB OBTAINED AND SENT ORDERED, PT TOLERATED WELL
--- NOTE | 2019-05-31 05:53 | NUR ---
PT ADMITTED TO ICU, ASSESSMENT UNCHANGED, RESP EASY ON 2 L/NS, 0.9NS INFUSING AND CLEOCIN INFUSING VIA IV PUMP WITH NO REDNESS, DUONG INTACT DRAINING CLEAR, YELLOW, BELONGINGS WITH PT
--- NOTE | 2019-05-31 05:54 | NUR ---
A 69, admitted to ICCU, under the services of THERESE Robles DO with a diagnosis of TOXIC ENCEPHALOPATHY. Chief complaint is UNRESPONSIVE. Patient arrived via bed from ER. Monitor applied. Initial assessment completed. Vital signs taken and recorded. THERESE ROBLES DO notified of admission to the unit. Orders received. See assessment for past medical history, medications and allergies. Patient and/or family oriented to unit. [facility]U visitation policy reviewed. Clothing/patient valuable form completed. SHANNON DAY
[2019-05-31] MEDS ORDERED: ALENDRONATE SOD70 M1 PO (06:18)
--- NOTE | 2019-05-31 06:30 | NUR ---
DR. BRUNO IN TO SEE PATIENT FOR CONSULT.
--- NOTE | 2019-05-31 07:18 | NUR ---
PT HAVING SNORING RESPIRATIONS. POX 89% ON 3L NC INCREASED TO 4L. PT DOES NOT RESPOND BUT IS THRASHING ABOUT IN BED IN [address] REAL NOTIFIED THAT PT NEEDS EVALUATED BY A
--- NOTE | 2019-05-31 07:25 | NUR ---
DR BARBOSA IN TO EVALUATE PT AT THIS TIME.
[2019-05-31 07:41] LABS: ABG BASE EXCESS 0.6 mmol/L (-2.0-2.0); ABG HCO3 25.9 mmol/l (22-26); ARTERIAL BLOOD GAS PCO2 45.2 mmHg (35-45); ARTERIAL BLOOD GAS PH 7.371 (7.35-7.45); ARTERIAL BLOOD GAS PO2 60.9 mmHg (80-90)
--- NOTE | 2019-05-31 07:47 | NUR ---
PADED SIDERAIL COVERS PLACED ON BED FOR PT'S SAFETY SHE CONTINUES TO THRASH ABOUT WITH ALL FOR EXTREMITIES. NO PURPOSEFUL RESPONSES FROM PT.
--- NOTE | 2019-05-31 07:52 | NUR ---
DR BRUNO MADE AWARE OF ABG RESULTS.
--- NOTE | 2019-05-31 10:59 | NUR ---
pt becoming more lucid. She will open her eyes to verbal response and trying to focus with her eyes. Lower leg restraints removed and pt repositioned for comfort. Pt remains in constant observation by iccu staff.
--- NOTE | 2019-05-31 11:25 | NUR ---
PT LESS RESTLESS AND AGITATED NOW. ALL 4 RESTRAINTS ARE NOW UNTIED. BED ALARM ON AND PT IN VIEW OF ICCU STAFF.
--- NOTE | 2019-05-31 21:47 | NUR ---
PT AWAKE, CRYING OUT FOR PAIN MEDICATION. SITS UPRIGHT, CROSS LEGGED, AND REACHES OVER TO HER DRESSER DRAWERS "JUST LOOKING FOR SOMETHING" WHEN ASKED. STATES PAIN AND WANTS CATHETER REMOVED.
--- NOTE | 2019-05-31 23:33 | NUR ---
TYLENOL GIVEN AT 2200 FOR C/O PAIN LOWER LEGS EFFECTIVE...BODY RELAXED, PT DOZING.
[2019-06-01] VITALS: BP 124/60
[2019-06-01 04:00] VITALS: BP 142/72
--- NOTE | 2019-06-01 05:17 | NUR ---
PT APPEARS TO BE CALMER, MORE ORIENTED, AND PLEASANT THIS AM. SHE HAS NO COMPLAINTS AT THIS TIME.
[2019-06-01 05:38] LABS: ALBUMIN 2.3 gm/dl (3.1-4.5); ALKALINE PHOSPHATASE 90 U/L (45-117); BUN 7 mg/dl (7-24); CHLORIDE 108 mmol/L (98-107); CREATININE 0.57 mg/dL (0.55-1.02); PHOSPHOROUS 3.5 mg/dL (2.5-4.9); POTASSIUM 3.2 mmol/L (3.5-5.1); SGOT/AST 15 IU/L (3-35); SGPT/ALT 21 U/L (12-78); SODIUM 142 mmol/L (136-145); TOTAL PROTEIN 6.2 gm/dL (6.4-8.2)
[2019-06-01 06:28] LABS: BASO # 0.1 10*3/uL (0.0-0.1); BASO % 0.3 % (0.0-1.0); EOS # 0.2 10*3/uL (0.0-0.4); EOS % 0.9 % (1.0-4.0); HEMATOCRIT 36.8 % (37.0-47.0); HEMOGLOBIN 11.5 g/dl (12.0-16.0); LYMPH # 3.7 10*3/uL (1.3-4.4); LYMPH % 21.7 % (27.0-41.0); MEAN CELL VOLUME 83.6 fl (81.0-99.0); MEAN CORPUSCULAR HGB 26.1 pg (27.0-31.0); MEAN CORPUSCULAR HGB CONC 31.3 g/dl (33.0-37.0); MONO # 0.7 10*3/uL (0.1-1.0); MONO % 4.2 % (3.0-9.0); NEUT # 12.3 10*3/uL (2.3-7.9); NEUT % 72.3 % (47.0-73.0); PLATELET COUNT AUTOMATED 406 10*3/uL (130-400); RED CELL DISTRI WIDTH 14.9 % (0-14.5)
--- NOTE | 2019-06-01 07:41 | NUR ---
Shift chart check completed.24 HR chart check completed.
--- NOTE | 2019-06-01 07:41 | NUR ---
ON ASSESSMENT PATIENT AROUSES EASILY. ABLE TO SAY SHE'S IN "[facility], NO [facility]". WHEN QUESTIONED ABOUT THE PILL BOTTLES AT HOME PATIENT DENIED SUICIDAL. IV FLUIDS TO BE D/C PER ORDER. PT NOW A MED SURG PATIENT PER ELECTRONIC ORDER. ATTEMPTED TO CALL NURSING PROJECT ADMINISTRATOR, NO ANSWER. PT DENIED WANTING ANY BREAKFAST AT THIS TIME. SHE'S ABLE TO REPOSITION HERSELF FOR COMFORT. SEE ALL APPROPRIATE INTERVENTION.
[2019-06-01 08:00] VITALS: BP 138/80
--- NOTE | 2019-06-01 08:15 | NUR ---
DR DAVIS VISITS. SHIFT DIRECTOR, KEHINDE, MADE AWARE PATIENT IS NOW MED-SURG STATUS.
--- NOTE | 2019-06-01 10:00 | NUR ---
DUONG CATHETER D/C. TRANSFERRED IN STABLE CONDITION, VIA W/C, WITH ALL OF HER BELONGINGS TO [facility]. REPORT WAS GIVEN TO .
[2019-06-01 12:00] VITALS: BP 150/81
--- NOTE | 2019-06-01 13:50 | NUR ---
PT C/O PAIN TO FEET AND LEGS OF 01/15. TYLENOL GIVEN AT THIS TIME. WILL CONT TO MONITOR. CALL LIGHT IN REACH.
--- NOTE | 2019-06-01 14:20 | NUR ---
RESTING QUIETLY AT THIS TIME.
[2019-06-01 16:00] VITALS: BP 156/81
--- NOTE | 2019-06-01 17:34 | NUR ---
TYLENOL GIVEN FOR C/O PAIN TO LEGS AND FEET OF 01/15. WILL CONT TO MONITOR. CALL LIGHT IN REACH.
--- NOTE | 2019-06-01 18:30 | NUR ---
TYLENOL SLIGHTLY EFFECTIVE PER PATIENT. WILL CONTINUE TO MONITOR.
[2019-06-01 20:00] VITALS: BP 154/73
--- NOTE | 2019-06-01 21:18 | NUR ---
24 HR chart check completed.
--- NOTE | 2019-06-01 21:47 | NUR ---
TYLENOL GIVEN PER PATIENT REQUEST FOR COMPLAINTS OF BILATERAL FOOT AND LEG PAIN RATED 7/10. WILL ASSESS EFFECTIVNESS.
[2019-06-02] VITALS: BP 173/95
--- NOTE | 2019-06-02 01:45 | NUR ---
PATIENT MEDICATED WITH TYLENOL FOR COMPLAINTS OF PAIN ALL OVER. STATED TYLENOL DOES NOTHING FOR HER BECAUSE IT DOES NOTHING FOR HER AT HOME BUT CONTINUES TO TAKE IT. NO SIGNS OR SYMPTOMS OF DISTRESS NOTED. RESPIRATIONS REGULAR AND NON-LABORED. BED ALARM ON WITH SUPERVISION TO BATHROOM. WILL CONTINUE TO MONITOR. CALL LIGHT IN REACH.
--- NOTE | 2019-06-02 02:24 | NUR ---
24 HR chart check completed.
--- NOTE | 2019-06-02 06:34 | NUR ---
MEDICATED WITH TYLENOL FOR COMPLAINTS OF PAIN ALL OVER. WILL CONTINUE TO MONITOR.
[2019-06-02 06:37] LABS: BASO % 0.2 % (0.0-1.0); EOS # 0.1 10*3/uL (0.0-0.4); EOS % 0.9 % (1.0-4.0); HEMATOCRIT 36.2 % (37.0-47.0); HEMOGLOBIN 11.3 g/dl (12.0-16.0); LYMPH # 3.1 10*3/uL (1.3-4.4); LYMPH % 24.4 % (27.0-41.0); MEAN CELL VOLUME 82.1 fl (81.0-99.0); MEAN CORPUSCULAR HGB 25.6 pg (27.0-31.0); MEAN CORPUSCULAR HGB CONC 31.2 g/dl (33.0-37.0); MEAN PLATELET VOLUME 9.1 fl (9.6-12.3); MONO # 1.1 10*3/uL (0.1-1.0); MONO % 8.2 % (3.0-9.0); NEUT # 8.4 10*3/uL (2.3-7.9); NEUT % 65.8 % (47.0-73.0); PLATELET COUNT AUTOMATED 377 10*3/uL (130-400); RED BLOOD COUNT 4.41 10*6/uL (4.10-5.10); RED CELL DISTRI WIDTH 14.7 % (0-14.5); WHITE BLOOD COUNT 12.8 10*3/uL (4.8-10.8)
[2019-06-02 06:42] LABS: ALBUMIN 2.5 gm/dl (3.1-4.5); ALKALINE PHOSPHATASE 82 U/L (45-117); BUN 8 mg/dl (7-24); CHLORIDE 103 mmol/L (98-107); CREATININE 0.63 mg/dL (0.55-1.02); POTASSIUM 3.4 mmol/L (3.5-5.1); SGOT/AST 20 IU/L (3-35); SGPT/ALT 23 U/L (12-78); SODIUM 138 mmol/L (136-145); TOTAL PROTEIN 6.3 gm/dL (6.4-8.2)
[2019-06-02 08:00] VITALS: BP 136/80
--- NOTE | 2019-06-02 08:16 | NUR ---
24 HR chart check completed.
--- NOTE | 2019-06-02 09:00 | NUR ---
Design Engineering Manager in to talk to patient. Patient states lives at home with ex . There are few steps in the home. Physician: [facility] Home health services: [facility] Patient's level of ADLs: INDEPENDENT Patient has working utilities: all working DME: none Follow-up physician's appointment after d/c: will be made by hospitalist nurse director upon discharge Does patient want to access PORTAL?: no Discharge plan discusssed with patient, she states she lives at home with her ex , she states she is independent in adls and ambulation, she also states when she took a lot of pills she was not attempting to her herself she felt like she forgot she took them and took them again, discussed with her VNA and she was not receptive to this, case management will follow. YOLY OSEI
--- NOTE | 2019-06-02 10:05 | NUR ---
PT COMPLAINING OF LEG/BACK PAIN /10 AND NAUSEA. MEDICATED PER ORDER. WILL MONITOR FOR RELIEF. VOICES NO OTHER CONCERNS AT THIS TIME. RESTING IN BED. CALL LIGHT WITHIN REACH
--- NOTE | 2019-06-02 10:23 | NUR ---
DR BARBOSA IN TO SEE PATIENT
--- NOTE | 2019-06-02 11:22 | NUR ---
TYLENOL "MARCELLUS WORKED" AND ZOFRAN EFFECTIVE PER PT
[2019-06-02 12:00] VITALS: BP 138/71
--- NOTE | 2019-06-02 13:48 | NUR ---
PT REQUESTING TO LEAVE. STATING THAT DR BARBOSA TOLD HER EARLIER THIS MORNING SHE COULD GO HOME. ATTEMPTED TO TALK TO PATIENT ABOUT STAYING AND SHE SAID NO THAT SHE WANTED AN AMA PAPER.
--- NOTE | 2019-06-02 14:11 | NUR ---
PT LEFT AMA. JOSE LIPSTICK MOLDER NOTIFIED AND DR BARBOSA. IV DISCONTINUED.
--- NOTE | 2019-06-03 11:49 | NUR ---
FUNERAL SERVICE MANAGER called APS and a referral was to [facility] due to patients being unresponsive at 12 midnight and EMS not being called til 2;30am. -JOEY Rousseau
--- NOTE | 2019-06-03 12:55 | NUR ---
case management faxed a resume home health order to [facility]
--- NOTE | 2019-06-04 15:06 | NUR ---
JOEY was notified by [facility]. Patient refused services when they attempted to see her. JOEY also spoke with Maegan Melendrez-APS. She followed up with the APS referral. -JOEY Rousseau
== END 2019-06-02 14:11 | disposition left against medical advice (07) | DRG 812 ==
LOC: ED 03:19 → EDHOLD 05:25 → 5E 05:25 → ICCU 05:37 → 5E 06-01 09:37
PROVIDERS: Emergency Medicine Emergency Medical Services; Family Medicine; Internal Medicine; Internal Medicine Critical Care Medicine; ADMIT Internal Medicine
DX: T50.994A Poisoning by other drugs, medicaments and biological substances, undetermined, initial encounter (principal); A41.9 Sepsis, unspecified organism; J69.0 Pneumonitis due to inhalation of food and vomit; J96.01 Acute respiratory failure with hypoxia; E43 Unspecified severe protein-calorie malnutrition; G92 Toxic encephalopathy; E11.65 Type 2 diabetes mellitus with hyperglycemia; R65.20 Severe sepsis without septic shock; J44.9 Chronic obstructive pulmonary disease, unspecified; E83.42 Hypomagnesemia; E87.1 Hypo-osmolality and hyponatremia; E83.39 Other disorders of phosphorus metabolism; E89.0 Postprocedural hypothyroidism; K21.9 Gastro-esophageal reflux disease without esophagitis; I10 Essential (primary) hypertension; M51.36 Other intervertebral disc degeneration, lumbar region; M47.816 Spondylosis without myelopathy or radiculopathy, lumbar region; F32.9 Major depressive disorder, single episode, unspecified; G47.33 Obstructive sleep apnea (adult) (pediatric); M48.061 Spinal stenosis, lumbar region without neurogenic claudication; F41.1 Generalized anxiety disorder; I25.10 Atherosclerotic heart disease of native coronary artery without angina pectoris; G89.4 Chronic pain syndrome; Z53.29 Procedure and treatment not carried out because of patient's decision for other reasons; F17.210 Nicotine dependence, cigarettes, uncomplicated; F11.10 Opioid abuse, uncomplicated; Y92.89 Other specified places as the place of occurrence of the external cause; Z88.8 Allergy status to other drugs, medicaments and biological substances; Z88.0 Allergy status to penicillin; Z90.49 Acquired absence of other specified parts of digestive tract; Z90.710 Acquired absence of both cervix and uterus; Z83.3 Family history of diabetes mellitus; Z82.49 Family history of ischemic heart disease and other diseases of the circulatory system; Z79.899 Other long term (current) drug therapy; Z79.84 Long term (current) use of oral hypoglycemic drugs; Z68.24 Body mass index [BMI] 24.0-24.9, adult

== ENCOUNTER 2019-06-07 19:26 | Inpatient (IN) | payer OTHER ==
[~2019-06-07] VITALS: Ht 157.4 cm; Wt 62.6 kg
[2019-06-07 19:37] VITALS: BP 85/56
[2019-06-07 20:15] LABS: BASO % 0.2 % (0.0-1.0); EOS % 0.2 % (1.0-4.0); HEMATOCRIT 41.7 % (37.0-47.0); HEMOGLOBIN 13.1 g/dl (12.0-16.0); LYMPH # 1.6 10*3/uL (1.3-4.4); LYMPH % 12.4 % (27.0-41.0); MEAN CELL VOLUME 83.6 fl (81.0-99.0); MEAN CORPUSCULAR HGB 26.3 pg (27.0-31.0); MEAN CORPUSCULAR HGB CONC 31.4 g/dl (33.0-37.0); MEAN PLATELET VOLUME 9.2 fl (9.6-12.3); MONO # 1.1 10*3/uL (0.1-1.0); MONO % 8.4 % (3.0-9.0); NEUT % 78.2 % (47.0-73.0); PLATELET COUNT AUTOMATED 515 10*3/uL (130-400); RED BLOOD COUNT 4.99 10*6/uL (4.10-5.10); RED CELL DISTRI WIDTH 14.9 % (0-14.5); WHITE BLOOD COUNT 12.8 10*3/uL (4.8-10.8)
[2019-06-07 20:23] VITALS: BP 116/65
[2019-06-07 20:28] LABS: ACT PARTIAL THROMBO TIME 28.2 SECONDS (20.0-32.1)
[2019-06-07 20:36] LABS: ALBUMIN 2.8 gm/dl (3.1-4.5); ALKALINE PHOSPHATASE 97 U/L (45-117); BUN 16 mg/dl (7-24); CHLORIDE 99 mmol/L (98-107); CREATININE 1.34 mg/dL (0.55-1.02); LIPASE 84 U/L (73-393); SGOT/AST 18 IU/L (3-35); SGPT/ALT 26 U/L (12-78); SODIUM 136 mmol/L (136-145); TOTAL PROTEIN 6.8 gm/dL (6.4-8.2)
[2019-06-07 20:46] LABS: POTASSIUM 2.4 mmol/L (3.5-5.1); TROPONIN I < 0.015 ng/ml (<0.045)
[2019-06-07 21:43] VITALS: BP 109/61
[2019-06-07 22:01] VITALS: BP 100/59
[2019-06-07 22:12] VITALS: BP 143/89
--- NOTE | 2019-06-07 22:12 | NUR ---
A 69, admitted to , under the services of TIERNEY Trejo MD with a diagnosis of HYPOALBUNINEMIA, LLL PNEUMONIA. Chief complaint is NV, WEAKNESS. Patient arrived via bed from ER. Monitor applied. Initial assessment completed. Vital signs taken and recorded. TIERNEY TREJO MD notified of admission to the unit. Orders received. See assessment for past medical history, medications and allergies. Patient and/or family oriented to unit. [facility] visitation policy reviewed. Clothing/patient valuable form completed. XAVIER ALLEN
[2019-06-07 23:24] LABS: BILIRUBIN NEGATIVE (NEGATIVE); BLOOD NEGATIVE (NEGATIVE); CLARITY CLEAR (CLEAR); COLOR YELLOW (YELLOW); GLUCOSE NEGATIVE (NEGATIVE); KETONE NEGATIVE (NEGATIVE); LEUKO ESTERASE NEGATIVE (NEGATIVE); NITRITE NEGATIVE (NEGATIVE); SPECIFIC GRAVITY <= 1.005 (1.005-1.030); UROBILINOGEN 0.2 E.U./dl (0.2-1.0)
--- NOTE | 2019-06-07 23:25 | NUR ---
CALLED DR COSTELLO TO INFROM HER OF NEW CONSULT. SHE STATES SHE WILL DO HOME MEDS IN THE MORNING. INFORMED HER OF THE WOUND ON PT LEFT ARM, NO CURRENT ORDERS AT THIS TIME. INFORMED TO SCOTT DUONG. OTHER ORDERS IN PLACE PER WISHES
[2019-06-07 23:36] LABS: RBC 0-2 rbc/hpf (0-2); WBC 0-2 wbc/hpf (0-5)
[2019-06-08] VITALS: BP 143/89
--- NOTE | 2019-06-08 02:17 | NUR ---
24 HR chart check completed.
--- NOTE | 2019-06-08 04:00 | NUR ---
REMOVED PT DUONG AT THIS TIME.
--- NOTE | 2019-06-08 04:05 | NUR ---
Patient sleeping. Respirations relaxed and easy. Siderails up . [place] on. XAVIER ALLEN
--- NOTE | 2019-06-08 06:03 | NUR ---
PT STATES SHE IS HAVING BACK PAIN AND IS REQUESTING PAIN MEDS. I CALLED DR COSTELLO TO NOTIFY HER AND SHE SAID TO ADD AN ORDER OF TYLENOL.
--- NOTE | 2019-06-08 06:50 | NUR ---
PT STATES SHE IS HAVVING BACK AND LEG PAIN AND RATES IT A 8/10 AND IS REQUESTING PRN TYLENOL. PRN PO TYLENOL IS GIVEN AT THIS TIME. WILL CONTINUE TO MONITOR PT
[2019-06-08 06:55] LABS: BUN 11 mg/dl (7-24); CHLORIDE 109 mmol/L (98-107); CREATININE 0.88 mg/dL (0.55-1.02); SODIUM 143 mmol/L (136-145)
[2019-06-08 06:56] LABS: POTASSIUM 3.4 mmol/L (3.5-5.1)
--- NOTE | 2019-06-08 07:47 | NUR ---
SPOKE WITH DR ALEXANDER ABOUT ACCEPTING PT. DR ALEXANDER STATES THAT THE HOSPITALIST SERVICE WILL ASSUME CARE OF THE PT. INFORMED DR COSTELLO. CONTINUE TO MONITOR THE PT.
[2019-06-08 08:00] VITALS: BP 136/66
--- NOTE | 2019-06-08 09:00 | NUR ---
Patient resting quietly with no c/o discomfort. Respirations easy and regular. Vital signs stable. No overt distress. Continue to monitor the pt. TAQUERIA SPENCER
[2019-06-08 12:00] VITALS: BP 136/72
[2019-06-08 13:32] VITALS: BP 144/70
[2019-06-08 16:00] VITALS: BP 113/56
--- NOTE | 2019-06-08 19:45 | NUR ---
PATIENT TEARFUL IN BED STATING SOMEONE TOLD HER TO GO TO THE BATHROOM IN HER PANTS. THIS RN ASSISTED PATIENT TO THE RESTROOM AND BACK TO BED. BED ALARM ON FOR SAFETY. THIS RN TRIED TO HELP CALM PATIENT AND THAT IT MUST HAVE BEEN A MISUNDERSTANDING. PATIENT COMFORTABLE IN BED. WILL MONITOR.
[2019-06-08 20:00] VITALS: BP 129/72
--- NOTE | 2019-06-08 21:31 | NUR ---
PRN ATIVAN GIVEN FOR C/O ANXIETY. WILL MONITOR FOR EFFECTIVENESS.
--- NOTE | 2019-06-08 22:00 | NUR ---
PRN ATIVAN EFFECTIVE.
--- NOTE | 2019-06-08 22:49 | NUR ---
24 HR chart check completed.
--- NOTE | 2019-06-08 23:02 | NUR ---
PATIENT GIVEN PRN TYLENOL FOR C/O 10/10 PAIN IN HER LEGS. WILL MONITOR FOR EFFECTIVENESS.
--- NOTE | 2019-06-08 23:07 | NUR ---
NOTIFIED DR. SHANKS THAT PATIENT STATES THE TYLENOL IS NOT WORKING. NO NEW ORDERS AT THIS TIME.
[2019-06-09] VITALS: BP 130/77
--- NOTE | 2019-06-09 02:02 | NUR ---
PATIENT CALLED RN INTO ROOM BECAUSE SHE IS IN PAIN. EXPLAINED THAT HER TYLENOL IS NOT DUE YET. PATIENT STATED THE TYLENOL IS NOT WORKING. EXPLAINED TO PATIENT THAT TYLENOL IS THE ONLY THING THE DOCTORS WILL GIVE HER FOR PAIN.
--- NOTE | 2019-06-09 02:28 | NUR ---
PATIENT CALLED RN INTO ROOM AGAIN REGARDING PAIN. EXPLAINED TO PATIENT THAT THE ONLY THING SHE HAS IS TYLENOL. THE PATIENT STATED "THEN WHY AM I HERE IF YOU ARE JUST GOING TO LET ME LAY IN THIS BED." RN CLARIFIED TO PATIENT THAT SHE WAS HERE FOR PNEUMONIA AND ANTIBIOTICS. NURSING COMFORT MEASURES OFFERED SUCH REPOSITIONING BUT PATIENT DECLINED.
--- NOTE | 2019-06-09 04:44 | NUR ---
PRN TYLENOL GIVEN FOR C/O 10/10 PAIN IN HER LEGS. WILL MONITOR FOR EFFECTIVENESS.
--- NOTE | 2019-06-09 05:30 | NUR ---
PATIENT STATED THE PRN TYLENOL WAS NOT EFFECTIVE. OFFERED REPOSITIONING AND WARM BLANKET. CALL LIGHT WITHIN REACH.
[2019-06-09 06:27] LABS: BASO % 0.2 % (0.0-1.0); EOS # 0.2 10*3/uL (0.0-0.4); EOS % 1.9 % (1.0-4.0); HEMATOCRIT 35.1 % (37.0-47.0); HEMOGLOBIN 10.7 g/dl (12.0-16.0); MEAN CORPUSCULAR HGB 25.9 pg (27.0-31.0); MEAN CORPUSCULAR HGB CONC 30.5 g/dl (33.0-37.0); MEAN PLATELET VOLUME 9.3 fl (9.6-12.3); MONO # 0.6 10*3/uL (0.1-1.0); MONO % 6.8 % (3.0-9.0); NEUT # 3.9 10*3/uL (2.3-7.9); NEUT % 44.6 % (47.0-73.0); PLATELET COUNT AUTOMATED 423 10*3/uL (130-400); RED BLOOD COUNT 4.13 10*6/uL (4.10-5.10); RED CELL DISTRI WIDTH 14.9 % (0-14.5); WHITE BLOOD COUNT 8.8 10*3/uL (4.8-10.8)
[2019-06-09 06:39] LABS: ALBUMIN 2.5 gm/dl (3.1-4.5); ALKALINE PHOSPHATASE 86 U/L (45-117); BUN 17 mg/dl (7-24); CHLORIDE 108 mmol/L (98-107); CREATININE 0.72 mg/dL (0.55-1.02); PHOSPHOROUS 2.6 mg/dL (2.5-4.9); POTASSIUM 3.6 mmol/L (3.5-5.1); SGOT/AST 16 IU/L (3-35); SGPT/ALT 21 U/L (12-78); SODIUM 142 mmol/L (136-145); TOTAL PROTEIN 5.6 gm/dL (6.4-8.2)
--- NOTE | 2019-06-09 07:25 | NUR ---
ADNO RODARTE [id number] Please refer to the physician's history and physical for past medical history, comorbid conditions, and allergies. Diagnosis: HYPOALBUMINEMIA LEFT LOWER LOBE PNEUMONIA Simon Score: 17,AT RISK WOUND DESCRIPTIONS: WOUND #1 LEFT UPPER ARM SCAB INTACT. NO DRAINAGE, ODOR, OR REDNESS NOTED AT TIME OF ASSESSMENT. PATIENT STATES THAT SHE BUMPED THIS AREA A "COUPLE DAYS AGO." PATIENT DENIED PAIN AT TIME OF ASSESSMENT. Surface the patient is resting on: Isoflex SKIN PREVENTION RECOMMENDATION: 1. Pressure redistribution support surface as appropriate 2. Elevate heels 3. Remove boots/TEDS every shift and reapply 4. Head of bed 30 degrees as tolerated 5. Assess nutrition and hydration 6. Manage moisture 7. Avoid the use of containment devices while in bed 8. Use absorptive products on surfaces limit layers of linens on bed 9. Turn and reposition every 1-2 hours in bed and every 1 hour in chair as tolerated 10. Weight shifts every 15 minutes while up in chair 11. Offloading with pillows or device to keep heels elevated off bed 12. Monitor skin at least every shift 13. Inspect under medical devices twice a day WOUND TREATMENT RECOMMENDATIONS: LEAVE LEFT UPPER ARM OPEN TO AIR.
--- NOTE | 2019-06-09 07:36 | NUR ---
CALLED TO ROOM FOR BILAT LEG PAIN THAT IS CONSTANT AND SHARP RATED 10/10. TYLENOL GIVEN ARND 0430 PER EMAR AND UNABLE TO GIVE AT THIS TIME PER ORDERS.
--- NOTE | 2019-06-09 07:41 | NUR ---
JONATHAN WATSON CNP INFORMED TYLENOL DID NOT WORK FOR PAIN AND IT WAS INEFFECTIVE. NO NEW ORDERS REC'D AT THIS TIME.
[2019-06-09 08:00] VITALS: BP 142/70
--- NOTE | 2019-06-09 08:11 | NUR ---
PHYSICAL THERAPY Screen received as well as orders for Physical Therapy will follow, thank you. Terri Katz PT
--- NOTE | 2019-06-09 08:44 | NUR ---
SLEEPING. NO SXS OF DISTRESS NOTED. CALL LIGHT WITHIN REACH.
--- NOTE | 2019-06-09 08:59 | NUR ---
Nursing screen received and Occupational Therapy referral received. Thank you. Juan Luis Graff OTR/l
--- NOTE | 2019-06-09 09:18 | NUR ---
JOEY received call from Maegan Melendrez-[facility]. Maegan requested clinicals on the patient. ORGAN BUILDER faxed recent clinicals. -JOEY Rousseau
--- NOTE | 2019-06-09 10:58 | NUR ---
Occupational Therapy evaluation completed on 4 with full eval to follow. Precautions include bed alarm,prefers bed v.s. chair seating,impaired memory, IV UE, moderate complexity level. Recommend OT for safe ADL performance, functional transfers, new ww use and activity tolerance per pOC and SNF to enable safe return home with family. THank you. Juan Luis Graff OTR/malini
--- NOTE | 2019-06-09 11:23 | NUR ---
Nutritional Support Services Note: Scabbed area noted to arm, abrasion. Pt is receiving a regular diet as ordered with Glucerna OS TID. Dx of hypoalbuminemia. Appetite is good for meals. No other nutrition intervention needed at this time. Will follow as needed. Bella Laura Rdn Ld
[2019-06-09 12:00] VITALS: BP 171/76
--- NOTE | 2019-06-09 12:12 | NUR ---
CONSULT FOR COMPETENCY DION LEFT WITH KITTY ON ORTHO. SAID SHE WOULD PASS IT ON TO THE APPROPRIATE PERSON.
--- NOTE | 2019-06-09 12:36 | NUR ---
Patient and family requesting a referral to [facility]. Contacted and spoke with Dagmar and faxed initial referral. Requires precert, waiting on PT/OT evals. Will fax when available.
--- NOTE | 2019-06-09 12:46 | NUR ---
PHYSICAL THERAPY Susanna complete full report to follow moderate level of [id number] PT to work on transfer,amb, strengthening, steps, balance and safety Recommned SNF at discharge Terri Katz PT
[2019-06-09 13:33] VITALS: BP 144/70
--- NOTE | 2019-06-09 14:07 | NUR ---
PT REQUESTING TO SEE HER NORMAL PCP, . CONFIRMED THE PT IS NORMALLY UNDER HIS CARE. SPOKE WITH BRENDA CASTILLO. SAID SHE WOULD TRANSFER SERVICE TO HIM.
--- NOTE | 2019-06-09 14:10 | NUR ---
Parent Partner in to talk to patient. Patient states lives at HOME with EX , SON AND DAUGHTER IN LAW. There are NO steps in the home. Physician: [facility]acy: [facility] Home health services: NONE Patient's level of ADLs: MINIMAL ASSIST Patient has working utilities: YES DME: NONE Follow-up physician's appointment after d/c: PREFERS TO MAKE OWN ON DISCHARGE Does patient want to access PORTAL?: NO Discharge plan PT LIVES AT HOME WITH HER FAMILY. TALKED WITH PT ABOUT SKILLED STAY AND SHE IS AGREEABLE BUT WANTS TO GO WHERE HER DAUGHTER IN LAW WORKS BUT DOES NOT KNOW WHERE THAT IS. PT STATES SHE WILL FIND OUT AND LET ME KNOW. IN THE MEANTIME, PT DAUGTHER IN LAW CALLED AND STATES THEY WANT PT AT [facility] WHERE SHE WORKS. REFERRAL WAS MADE. WILL REQURIE A PRECERT BEFORE GOING. WILL CONTINUE TO FOLLOW.. GERA DERAS
--- NOTE | 2019-06-09 14:41 | NUR ---
PT and OT evals completed and faxed to [facility]. Asked to start precert. hosptial exemption complete. waiting for auth.
--- NOTE | 2019-06-09 15:01 | NUR ---
made aware of consult. Said Ok. No new orders rec'd.
--- NOTE | 2019-06-09 15:30 | NUR ---
Resting comfortably in bed. No sxs of distress noted. Visitor at bedside.
[2019-06-09 16:05] VITALS: BP 156/78
--- NOTE | 2019-06-09 19:00 | NUR ---
ARRIVED ON SHIFT, INTRODUCED TO PATIENT, WHITE BOARD UPDATED.NO NEEDS VOICED AT THIS TIME. REPOPRT RECEIVED. AYESHA THOMPSONN, RN
[2019-06-09 20:00] VITALS: BP 140/76
--- NOTE | 2019-06-09 21:51 | NUR ---
PATIENT TRANSFERRED FROM 427 TO 516 WITHOUT INCIDENT. PATIENT IN STABLE CONDITION. ALL BELONGINGS BROUGHT TO NEW ROOM WITH PATIENT
--- NOTE | 2019-06-09 23:15 | NUR ---
PATIENT MEDICATED WITH TYLENOL FOR COMPLAINTS OF PAIN "ALL OVER" PATIENT THRASHING IN BED, PATIENT STATES HER PAIN IS FROM NEUROPATHY. WHEN ASKED ABOUT WHAT SHE TAKES AT HOME, PATIENT STATES SHE TAKES MORPHINE FOR PAIN AT HOME. WHILE REVIEWING MED REC, PATIENT IS NOT PRESCRIBED MORPHINE. PATIENT IS REQUESTING THIS RN CALL DR AND ASK "FOR MORPHINE OR SOMETHING STRONGER" RN ADVISED PATIENT TO ALLOW TYLENOL SOME TIME TO WORK, AND THEN DR WOULD BE MADE AWARE.
[2019-06-10] VITALS: BP 156/74
--- NOTE | 2019-06-10 01:25 | NUR ---
PATIENT AUDIBLY SOBBING, STATES HER PAIN IS UNBEARABLE BUT IS SITTING UP IN BED AND EATING SNACK FOODS(BANANA,CRACKER) PATIENT ASKING THIS RN TO CALL DR TO REQUEST MORPHINE FOR HER, RN ENCOURAGED PATIENT TO ALLOW TYLENOL SOME MORE TIME, AND THAT DRS WOULD BE RELUCTANT TO ORDER MORPHINE FOR NEURPATHY PAIN. PATIENT VERBALIZES UNDERSTANDING
--- NOTE | 2019-06-10 03:45 | NUR ---
Patient resting quietly with no c/o discomfort. Respirations easy and regular. Vital signs stable. No overt distress. JUAN RODRIGUEZ
[2019-06-10 06:48] LABS: ALBUMIN 3.1 gm/dl (3.1-4.5); BUN 12 mg/dl (7-24); CHLORIDE 105 mmol/L (98-107); CREATININE 0.66 mg/dL (0.55-1.02); PHOSPHOROUS 3.1 mg/dL (2.5-4.9); POTASSIUM 3.2 mmol/L (3.5-5.1); SGOT/AST 18 IU/L (3-35); SGPT/ALT 24 U/L (12-78); SODIUM 141 mmol/L (136-145)
[2019-06-10 06:51] LABS: ALKALINE PHOSPHATASE 102 U/L (45-117); TOTAL PROTEIN 6.8 gm/dL (6.4-8.2)
[2019-06-10 08:00] VITALS: BP 130/79
--- NOTE | 2019-06-10 08:09 | NUR ---
Maegan-AIDEN requested a copy of the patients Competency Eval. GARLAND MACHINE OPERATOR faxed Eval to Maegan-AIDEN. -JOEY Rousseau
--- NOTE | 2019-06-10 08:25 | NUR ---
OT NOTE Pt was seen this A.M. 1:1 for 17 minute OT session. Upon arrival pt was supine in bed. Pt identified by name and and had complaints of L sided rib pain which she was unable to rate at this time. Pt transferred supine to sit EOB with SBA. While sitting EOB pt donned B socks with SBA for safety. Sit to stand completed from bed level with Jori and use of w/w followed by functional mobility into the bathroom with CGA and use of w/w. Throughout pt had bouts of unsteady gait that required Jori to correct. Pt transferred on/off standard commode with Jori and use of grab bar for UE support. Clothing management completed with CGA and toilet hygiene completed with supervision while seated. Pt then stood sink side while washing her hands with CGA for safety. Functional mobility was then completed back to the EOB where she transferred supine to sit EOB with SBA. There she was left with call light in hand, tray table in place, and bed alarm activated for safety. COntinue with rec D/C plan to SNF. THO Valverde/Maria Eugenia
--- NOTE | 2019-06-10 08:25 | NUR ---
PHYSICAL THERAPY Patient seen this am 1;1 for therapy visit and was supine in bed upon therapist arrival. Patient identified by name / and reports generalized global weakness / pain, including increased L side Rib pain, but was unable to rate on 0-10 pain scale. Patient transfers supine to sit EOB with MIN A x 1, taking a few minutes to fully awaken with c/o mild dizziness. Patient completed sit to stand transfer, CGA, and ambulated with use of wh walker, 20'x 1 to bathroom, CGA, then additional 40'x 1, demonstrating very slow, cautious gait pattern. Patient very unsteady during 180 turn around secondary to increased weakness and returned to supine in bed to rest. Patient remained with call light, tray table, telephone and bed alarm for safety as Nurse arrived. Will continue per POC as tolerated, total treatment time 16 minutes. Sha Shoemaker, HAND SIZER
--- NOTE | 2019-06-10 11:08 | NUR ---
[facility] WILL REQUIRE A PRECERT TO GO. WILL CONTINUE TO FOLLOW.
--- NOTE | 2019-06-10 11:27 | NUR ---
Patient has received auth for [facility] and ms to go if medically stable for discharge.
[2019-06-10 12:00] VITALS: BP 144/80
--- NOTE | 2019-06-10 13:11 | NUR ---
CM notified Dr. Adams patient has received auth for [facility], he stated patient will discharge tomorrow 06/11/19
--- NOTE | 2019-06-10 14:25 | NUR ---
pt medicated with prn ativan for c/o increased anxiety./ will monitor.
[2019-06-10 16:00] VITALS: BP 122/66
[2019-06-10 20:00] VITALS: BP 143/82
--- NOTE | 2019-06-10 20:01 | NUR ---
PRN ATIVAN ADMINISTERED AT THIS TIME. PT RESTLESS AND CRYING IN BED STATING SHE IS "IN SO MUCH PAIN". WHEN ASKED WHERE THE PAIN IN THE PT STATES THAT IT'S "IN HER BACK AND ARM" AND THAT SHE "MUST HAVE FALLEN WHILE SHE WAS AT HOME BECAUSE SHE IS SO SORE". PT AWARE THAT THE EARLIEST THE TYLENOL CAN BE ADMINISTERED IS 2100. WILL CONTINUE TO MONITOR UNTIL THAT TIME.
--- NOTE | 2019-06-10 20:40 | NUR ---
PT AWAKE IN BED, APPEARS TO BE MORE RELAXED. STATES THAT SHE "STILL NEEDS THE PAIN MEDICINE, BUT FEELS A LITTLE BETTER". WILL CONTINUE TO MONITOR.
[2019-06-11] VITALS: BP 140/80
--- NOTE | 2019-06-11 03:02 | NUR ---
PATIENT TEARFUL C/O PAIN TO LEFT SIDE. PO ATIVAN GIVEN FOR NERVES AND EDUCATED ON PNEUMONIA AND THE IMPORTANCE OF TURN/COUGH/DEEP BREATHING. CALL LIGHT IN REACH.
--- NOTE | 2019-06-11 04:55 | NUR ---
PATIENT REQUESTING PAIN MEDICATION. PATIENT ADVISED TYLENOL IS NOT DUE UNTIL 0600
[2019-06-11 06:44] LABS: BASO % 0.4 % (0.0-1.0); EOS # 0.3 10*3/uL (0.0-0.4); EOS % 3.1 % (1.0-4.0); HEMOGLOBIN 12.1 g/dl (12.0-16.0); LYMPH # 4.2 10*3/uL (1.3-4.4); LYMPH % 38.1 % (27.0-41.0); MEAN CELL VOLUME 84.6 fl (81.0-99.0); MEAN CORPUSCULAR HGB 25.6 pg (27.0-31.0); MEAN CORPUSCULAR HGB CONC 30.3 g/dl (33.0-37.0); MEAN PLATELET VOLUME 9.5 fl (9.6-12.3); MONO # 0.7 10*3/uL (0.1-1.0); MONO % 6.7 % (3.0-9.0); NEUT # 5.7 10*3/uL (2.3-7.9); NEUT % 51.4 % (47.0-73.0); PLATELET COUNT AUTOMATED 450 10*3/uL (130-400); RED BLOOD COUNT 4.73 10*6/uL (4.10-5.10); RED CELL DISTRI WIDTH 14.8 % (0-14.5); WHITE BLOOD COUNT 11.1 10*3/uL (4.8-10.8)
[2019-06-11 06:54] LABS: CREATININE 0.67 mg/dL (0.55-1.02)
[2019-06-11 08:00] VITALS: BP 146/89
--- NOTE | 2019-06-11 09:35 | NUR ---
OT NOTE Pt was seen this A.M. 1:1 for 15 minute OT session. Upon arrival pt was supine in bed. Pt identified by name and and had complaints of 9/10 L sided rib pain and BLE. Pt transferred supine to sit EOB with SBA. While sitting EOB pt donned B socks with SBA for safety. Sit to stand completed from bed level with Jori and use of w/w. Functional mobility was then completed to the bathroom with CGA and use of w/w. There she transferred on/off standard commode with CGA and use of grab bar for UE support. Clothing management completed with CGA for safety. Pt then stood sink side while washing her hands and face with CGA. Functional mobility was then completed back to the EOB where she transferred sit to supine with SBA. There she was left with call light in hand, tray table in place, and bed alarm activated for safety. Continue with rec D/C plan to SNF. BRET Valverde
--- NOTE | 2019-06-11 11:03 | NUR ---
PHYSICAL THERAPY Patient presented to therapy in supine with head of bed elevated and bed alarm activated. Patient gives informed consent for treatment. Patient was identified by name and on wristband. Patient complains of R RIB PAIN of 9/10 from a recent fall she had at home. Patient transferred supine to sitting at EOB with SBA. Patient sat on EOB with SBA. Patient sit to stand from EOB with MIN A X 1. Patient ambulated with Wh Walker and CGA X 1 for 60' x 2 with no LOB and verbal cues for upright posture and keeping knees extended when ambulating. Patient performed sit to stand from LOW CHAIR with MIN A X 1. Patient ambulated from low chair 20' x 1 to sitting on EOB with CGA X 1. Patient transferred from sitting EOB to supine in bed with SBA. Patient was left in supine in bed wit hhead of bed elevated, call light within reach, and bed alarm activated. Patient was 1:1 with this PURCHASE PRICE ANALYST for 20 minutes total. LYNN MUÑOZ PURCHASE PRICE ANALYST
--- NOTE | 2019-06-11 11:50 | NUR ---
PSYCHOLOGICAL TESTS SALES AGENT received notice of patients discharge. PSYCHOLOGICAL TESTS SALES AGENT spoke with the patient son Timur about transport he stated that [facility] might be able to get the patient between 2pm and 5pm today. PSYCHOLOGICAL TESTS SALES AGENT explained the patient could go via Ambulance. He was agreeable. PSYCHOLOGICAL TESTS SALES AGENT explained would try and get a 2pm picked edge sewing machine operator, patients son was agreeable. PSYCHOLOGICAL TESTS SALES AGENT spoke with [facility]. They are able to transport the patient to [facility] at 2pm today. PSYCHOLOGICAL TESTS SALES AGENT notified [employer] Makerradames Velazquez as RN Christal was on the phone. PSYCHOLOGICAL TESTS SALES AGENT will [facility]. -JOEY Rousseau
[2019-06-11 12:00] VITALS: BP 116/67
--- NOTE | 2019-06-11 13:16 | NUR ---
PT BEING DISCHARGED TO [facility] TODAY.
--- NOTE | 2019-06-11 14:17 | NUR ---
PT TRANSPORTED TO [facility] AT THIS TIME VIA AMBULANCE. [place] DISCONTINUED.
--- NOTE | 2019-06-11 14:29 | NUR ---
ATTEMPTED TO CALL NURSING REPORT TO ENDY MCELROY WITH NO ANSWER.
--- NOTE | 2019-06-12 08:01 | NUR ---
PHYSICAL THERAPY CO-SIGN I approve of the Physical Therapy notes written above. Terri Katz PT
== END 2019-06-11 14:17 | DRG 140 ==
LOC: ED 19:26 → EDHOLD 21:50 → 4E 21:50 → 5E 06-09 21:39
PROVIDERS: Emergency Medicine Emergency Medical Services; Internal Medicine; Registered Nurse; ADMIT Internal Medicine
DX: J44.1 Chronic obstructive pulmonary disease with (acute) exacerbation (principal); N17.0 Acute kidney failure with tubular necrosis; I10 Essential (primary) hypertension; E11.65 Type 2 diabetes mellitus with hyperglycemia; G47.33 Obstructive sleep apnea (adult) (pediatric); K21.9 Gastro-esophageal reflux disease without esophagitis; E03.9 Hypothyroidism, unspecified; F32.9 Major depressive disorder, single episode, unspecified; F41.1 Generalized anxiety disorder; E53.8 Deficiency of other specified B group vitamins; F17.210 Nicotine dependence, cigarettes, uncomplicated; M51.36 Other intervertebral disc degeneration, lumbar region; E43 Unspecified severe protein-calorie malnutrition; E86.0 Dehydration; E87.6 Hypokalemia; M48.061 Spinal stenosis, lumbar region without neurogenic claudication; D47.3 Essential (hemorrhagic) thrombocythemia; G89.29 Other chronic pain; R41.9 Unspecified symptoms and signs involving cognitive functions and awareness; F41.0 Panic disorder [episodic paroxysmal anxiety]; J44.0 Chronic obstructive pulmonary disease with (acute) lower respiratory infection; G30.9 Alzheimer's disease, unspecified; F02.80 Dementia in other diseases classified elsewhere, unspecified severity, without behavioral disturbance, psychotic disturbance, mood disturbance, and anxiety; E78.2 Mixed hyperlipidemia; G47.00 Insomnia, unspecified; Z88.0 Allergy status to penicillin; Z88.8 Allergy status to other drugs, medicaments and biological substances; Z90.49 Acquired absence of other specified parts of digestive tract; Z90.710 Acquired absence of both cervix and uterus; Z82.49 Family history of ischemic heart disease and other diseases of the circulatory system; Z83.3 Family history of diabetes mellitus; Z79.899 Other long term (current) drug therapy; Z99.81 Dependence on supplemental oxygen; Z68.25 Body mass index [BMI] 25.0-25.9, adult

== ENCOUNTER 2019-07-02 13:10 | Emergency (ER) | payer OTHER ==
[~2019-07-02] VITALS: Ht 157.4 cm; Wt 63.5 kg
[2019-07-02 13:36] LABS: BASO % 0.4 % (0.0-1.0); EOS # 0.2 10*3/uL (0.0-0.4); EOS % 1.4 % (1.0-4.0); HEMATOCRIT 43.4 % (37.0-47.0); HEMOGLOBIN 13.3 g/dl (12.0-16.0); LYMPH # 2.9 10*3/uL (1.3-4.4); LYMPH % 26.1 % (27.0-41.0); MEAN CELL VOLUME 84.8 fl (81.0-99.0); MEAN CORPUSCULAR HGB CONC 30.6 g/dl (33.0-37.0); MONO # 0.4 10*3/uL (0.1-1.0); MONO % 3.9 % (3.0-9.0); NEUT # 7.5 10*3/uL (2.3-7.9); NEUT % 67.8 % (47.0-73.0); PLATELET COUNT AUTOMATED 391 10*3/uL (130-400); RED BLOOD COUNT 5.12 10*6/uL (4.10-5.10); RED CELL DISTRI WIDTH 16.7 % (0-14.5); WHITE BLOOD COUNT 11.1 10*3/uL (4.8-10.8)
[2019-07-02 13:47] LABS: ACT PARTIAL THROMBO TIME 28.8 SECONDS (20.0-32.1); INTERNATIONAL NORM RATIO 0.9 (2.0-3.5)
[2019-07-02 13:52] LABS: ALBUMIN 3.5 gm/dl (3.1-4.5); ALKALINE PHOSPHATASE 121 U/L (45-117); BUN 11 mg/dl (7-24); CHLORIDE 103 mmol/L (98-107); CREATININE 0.84 mg/dL (0.55-1.02); LIPASE 148 U/L (73-393); PHOSPHOROUS 3.5 mg/dL (2.5-4.9); POTASSIUM 3.4 mmol/L (3.5-5.1); SGOT/AST 22 IU/L (3-35); SGPT/ALT 38 U/L (12-78); SODIUM 136 mmol/L (136-145); TOTAL PROTEIN 7.6 gm/dL (6.4-8.2); TROPONIN I < 0.015 ng/ml (<0.045)
[2019-07-02 14:14] LABS: BILIRUBIN NEGATIVE (NEGATIVE); BLOOD NEGATIVE (NEGATIVE); CLARITY CLEAR (CLEAR); COLOR YELLOW (YELLOW); GLUCOSE NEGATIVE (NEGATIVE); KETONE NEGATIVE (NEGATIVE); LEUKO ESTERASE 1+ (NEGATIVE); NITRITE NEGATIVE (NEGATIVE); PH 6.5 (5.0-9.0); SPECIFIC GRAVITY <= 1.005 (1.005-1.030); UROBILINOGEN 0.2 E.U./dl (0.2-1.0)
[2019-07-02 14:19] LABS: BACTERIA TRACE
[2019-07-02 14:24] VITALS: BP 147/79
== END 2019-07-02 14:51 | disposition home or self-care (01) ==
LOC: ED 13:10
PROVIDERS: Nurse Practitioner Family
DX: A08.4 Viral intestinal infection, unspecified (principal); I10 Essential (primary) hypertension; J44.9 Chronic obstructive pulmonary disease, unspecified; E03.9 Hypothyroidism, unspecified; E11.9 Type 2 diabetes mellitus without complications; K21.9 Gastro-esophageal reflux disease without esophagitis; G89.29 Other chronic pain; F03.90 Unspecified dementia, unspecified severity, without behavioral disturbance, psychotic disturbance, mood disturbance, and anxiety; F17.200 Nicotine dependence, unspecified, uncomplicated; Z88.8 Allergy status to other drugs, medicaments and biological substances; Z88.0 Allergy status to penicillin; Z79.899 Other long term (current) drug therapy; Z90.49 Acquired absence of other specified parts of digestive tract; Z90.710 Acquired absence of both cervix and uterus

== ENCOUNTER → 2019-08-22 | Outpatient (CLI) | payer OTHER ==
[2019-08-22 17:40] LABS: BASO # 0.1 10*3/uL (0.0-0.1); BASO % 0.5 % (0.0-1.0); EOS # 0.1 10*3/uL (0.0-0.4); EOS % 0.5 % (1.0-4.0); HEMATOCRIT 48.1 % (37.0-47.0); HEMOGLOBIN 14.8 g/dl (12.0-16.0); LYMPH # 3.7 10*3/uL (1.3-4.4); LYMPH % 22.6 % (27.0-41.0); MEAN CELL VOLUME 87.6 fl (81.0-99.0); MEAN CORPUSCULAR HGB CONC 30.8 g/dl (33.0-37.0); MEAN PLATELET VOLUME 9.6 fl (9.6-12.3); NEUT # 11.6 10*3/uL (2.3-7.9); NEUT % 69.9 % (47.0-73.0); PLATELET COUNT AUTOMATED 393 10*3/uL (130-400); RED BLOOD COUNT 5.49 10*6/uL (4.10-5.10); WHITE BLOOD COUNT 16.6 10*3/uL (4.8-10.8)
[2019-08-22 17:55] LABS: ALBUMIN 3.9 gm/dl (3.1-4.5); ALKALINE PHOSPHATASE 107 U/L (45-117); BUN 9 mg/dl (7-24); CHLORIDE 104 mmol/L (98-107); CHOLESTEROL 202 mg/dL (<200); HDL CHOLESTEROL 49 mg/dl (40-60); LDL CHOLESTEROL 97 mg/dL (9-159); POTASSIUM 3.3 mmol/L (3.5-5.1); SGOT/AST 14 IU/L (3-35); SGPT/ALT 20 U/L (12-78); SODIUM 138 mmol/L (136-145); TOTAL PROTEIN 8.3 gm/dL (6.4-8.2); TRIGLYCERIDES 281 mg/dl (<150); VLDL CHOLESTEROL 56 mg/dL (6-40)
[2019-08-22 17:56] LABS: FREE T4 0.95 ng/dl (0.76-1.46)
[2019-08-22 18:58] LABS: VITAMIN D, 25-HYDROXY 19.8 ng/mL (30-100)
== END | disposition home or self-care (01) ==
LOC: LAB 17:01
PROVIDERS: Internal Medicine
DX: I10 Essential (primary) hypertension (principal); E78.2 Mixed hyperlipidemia; R70.0 Elevated erythrocyte sedimentation rate; R79.82 Elevated C-reactive protein (CRP)

== ENCOUNTER → 2019-08-26 | Outpatient (CLI) | payer OTHER ==
[2019-08-26 16:10] LABS: BASO # 0.1 10*3/uL (0.0-0.1); BASO % 0.6 % (0.0-1.0); EOS # 0.3 10*3/uL (0.0-0.4); EOS % 2.1 % (1.0-4.0); HEMATOCRIT 44.4 % (37.0-47.0); HEMOGLOBIN 13.5 g/dl (12.0-16.0); LYMPH # 3.6 10*3/uL (1.3-4.4); LYMPH % 30.3 % (27.0-41.0); MEAN CELL VOLUME 89.3 fl (81.0-99.0); MEAN CORPUSCULAR HGB 27.2 pg (27.0-31.0); MEAN CORPUSCULAR HGB CONC 30.4 g/dl (33.0-37.0); MEAN PLATELET VOLUME 9.6 fl (9.6-12.3); MONO # 0.7 10*3/uL (0.1-1.0); MONO % 6.2 % (3.0-9.0); NEUT % 59.9 % (47.0-73.0); PLATELET COUNT AUTOMATED 388 10*3/uL (130-400); RED BLOOD COUNT 4.97 10*6/uL (4.10-5.10); RED CELL DISTRI WIDTH 16.1 % (0-14.5); WHITE BLOOD COUNT 11.7 10*3/uL (4.8-10.8)
[2019-08-26 16:42] LABS: ALBUMIN 3.6 gm/dl (3.1-4.5); BUN 14 mg/dl (7-24); CHLORIDE 107 mmol/L (98-107); CHOLESTEROL 195 mg/dL (<200); CREATININE 0.94 mg/dL (0.55-1.02); POTASSIUM 4.1 mmol/L (3.5-5.1); SGOT/AST 10 IU/L (3-35); SGPT/ALT 18 U/L (12-78); SODIUM 140 mmol/L (136-145); TRIGLYCERIDES 305 mg/dl (<150); VLDL CHOLESTEROL 61 mg/dL (6-40)
[2019-08-26 16:50] LABS: ALKALINE PHOSPHATASE 111 U/L (45-117); CPK 46 U/L (26-192); FREE T4 0.81 ng/dl (0.76-1.46); HDL CHOLESTEROL 45 mg/dl (40-60); LDL CHOLESTEROL 89 mg/dL (9-159); TOTAL PROTEIN 7.4 gm/dL (6.4-8.2)
[2019-08-26 17:55] LABS: VITAMIN D, 25-HYDROXY 23.1 ng/mL (30-100)
[2019-08-27 09:09] LABS: RHEUMATOID ARTHRITIS FACTOR <10.0 IU/mL (0.0-13.9)
[2019-08-27 22:05] LABS: CCP ANTIBODIES IGG/IGA 8 units (0-19)
== END | disposition home or self-care (01) ==
LOC: LAB 15:03
PROVIDERS: Internal Medicine
DX: I10 Essential (primary) hypertension (principal); M06.9 Rheumatoid arthritis, unspecified; E78.2 Mixed hyperlipidemia; E55.9 Vitamin D deficiency, unspecified; Z13.1 Encounter for screening for diabetes mellitus; Z00.00 Encounter for general adult medical examination without abnormal findings

== ENCOUNTER 2019-10-02 13:58 | Emergency (ER) | payer OTHER ==
[~2019-10-02] VITALS: Ht 157.4 cm; Wt 61.2 kg
[2019-10-02 14:06] VITALS: BP 125/79
[2019-10-02 14:59] LABS: BASO # 0.1 10*3/uL (0.0-0.1); BASO % 0.4 % (0.0-1.0); EOS # 0.1 10*3/uL (0.0-0.4); EOS % 0.4 % (1.0-4.0); HEMATOCRIT 44.5 % (37.0-47.0); HEMOGLOBIN 13.6 g/dl (12.0-16.0); LYMPH # 2.7 10*3/uL (1.3-4.4); LYMPH % 19.9 % (27.0-41.0); MEAN CELL VOLUME 90.8 fl (81.0-99.0); MEAN CORPUSCULAR HGB 27.8 pg (27.0-31.0); MEAN CORPUSCULAR HGB CONC 30.6 g/dl (33.0-37.0); MEAN PLATELET VOLUME 9.4 fl (9.6-12.3); MONO # 0.7 10*3/uL (0.1-1.0); MONO % 5.3 % (3.0-9.0); NEUT # 9.9 10*3/uL (2.3-7.9); NEUT % 73.6 % (47.0-73.0); PLATELET COUNT AUTOMATED 358 10*3/uL (130-400); RED CELL DISTRI WIDTH 15.3 % (0-14.5); WHITE BLOOD COUNT 13.5 10*3/uL (4.8-10.8)
[2019-10-02 15:13] LABS: ALBUMIN 3.6 gm/dl (3.1-4.5); ALKALINE PHOSPHATASE 84 U/L (45-117); BUN 20 mg/dl (7-24); CHLORIDE 108 mmol/L (98-107); CREATININE 1.01 mg/dL (0.55-1.02); POTASSIUM 3.5 mmol/L (3.5-5.1); SGOT/AST 9 IU/L (3-35); SGPT/ALT 18 U/L (12-78); SODIUM 140 mmol/L (136-145); TOTAL PROTEIN 7.7 gm/dL (6.4-8.2)
[2019-10-02 16:19] LABS: BILIRUBIN NEGATIVE (NEGATIVE); BLOOD NEGATIVE (NEGATIVE); CLARITY CLEAR (CLEAR); COLOR YELLOW (YELLOW); GLUCOSE NEGATIVE (NEGATIVE); KETONE NEGATIVE (NEGATIVE); LEUKO ESTERASE NEGATIVE (NEGATIVE); NITRITE NEGATIVE (NEGATIVE); SPECIFIC GRAVITY 1.025 (1.005-1.030); UROBILINOGEN 0.2 E.U./dl (0.2-1.0)
== END 2019-10-02 16:36 | disposition home or self-care (01) ==
LOC: ED 13:58
PROVIDERS: Nurse Practitioner Family
DX: R10.31 Right lower quadrant pain (principal); R35.0 Frequency of micturition; R30.0 Dysuria; I10 Essential (primary) hypertension; J44.9 Chronic obstructive pulmonary disease, unspecified; K21.9 Gastro-esophageal reflux disease without esophagitis; E03.9 Hypothyroidism, unspecified; F17.200 Nicotine dependence, unspecified, uncomplicated; Z88.8 Allergy status to other drugs, medicaments and biological substances; Z88.0 Allergy status to penicillin; Z79.899 Other long term (current) drug therapy

== ENCOUNTER 2019-10-12 18:10 | Emergency (ER) | payer OTHER ==
[~2019-10-12] VITALS: Ht 157.4 cm; Wt 60.8 kg
[2019-10-12 18:40] LABS: BILIRUBIN NEGATIVE (NEGATIVE); BLOOD NEGATIVE (NEGATIVE); CLARITY CLEAR (CLEAR); COLOR YELLOW (YELLOW); EPITHELIAL CELLS 41-50; GLUCOSE NEGATIVE (NEGATIVE); KETONE NEGATIVE (NEGATIVE); LEUKO ESTERASE TRACE (NEGATIVE); NITRITE NEGATIVE (NEGATIVE); SPECIFIC GRAVITY 1.015 (1.005-1.030); UROBILINOGEN 0.2 E.U./dl (0.2-1.0)
[2019-10-12 18:41] LABS: BACTERIA TRACE
[2019-10-12 18:46] LABS: BASO # 0.1 10*3/uL (0.0-0.1); BASO % 0.4 % (0.0-1.0); EOS # 0.1 10*3/uL (0.0-0.4); EOS % 0.8 % (1.0-4.0); HEMATOCRIT 45.1 % (37.0-47.0); LYMPH # 3.4 10*3/uL (1.3-4.4); LYMPH % 25.2 % (27.0-41.0); MEAN CELL VOLUME 89.5 fl (81.0-99.0); MEAN CORPUSCULAR HGB 27.8 pg (27.0-31.0); MEAN PLATELET VOLUME 9.5 fl (9.6-12.3); MONO # 0.7 10*3/uL (0.1-1.0); MONO % 5.3 % (3.0-9.0); NEUT # 9.3 10*3/uL (2.3-7.9); NEUT % 67.9 % (47.0-73.0); PLATELET COUNT AUTOMATED 384 10*3/uL (130-400); RED BLOOD COUNT 5.04 10*6/uL (4.10-5.10); RED CELL DISTRI WIDTH 14.6 % (0-14.5); WHITE BLOOD COUNT 13.7 10*3/uL (4.8-10.8)
[2019-10-12 19:02] LABS: ALBUMIN 3.5 gm/dl (3.1-4.5); ALKALINE PHOSPHATASE 86 U/L (45-117); BUN 17 mg/dl (7-24); CHLORIDE 105 mmol/L (98-107); CREATININE 0.99 mg/dL (0.55-1.02); POTASSIUM 3.6 mmol/L (3.5-5.1); SGOT/AST 13 IU/L (3-35); SGPT/ALT 24 U/L (12-78); SODIUM 137 mmol/L (136-145); TOTAL PROTEIN 7.7 gm/dL (6.4-8.2)
[2019-10-12 21:18] VITALS: BP 122/64
== END 2019-10-12 22:50 | disposition left against medical advice (07) ==
LOC: ED 18:10
PROVIDERS: Nurse Practitioner Family
DX: R10.31 Right lower quadrant pain (principal); R50.9 Fever, unspecified; R35.0 Frequency of micturition; R30.9 Painful micturition, unspecified; I10 Essential (primary) hypertension; J44.9 Chronic obstructive pulmonary disease, unspecified; E03.9 Hypothyroidism, unspecified; K21.9 Gastro-esophageal reflux disease without esophagitis; G89.29 Other chronic pain; E11.9 Type 2 diabetes mellitus without complications; F17.200 Nicotine dependence, unspecified, uncomplicated; Z88.8 Allergy status to other drugs, medicaments and biological substances; Z88.0 Allergy status to penicillin; Z79.899 Other long term (current) drug therapy; Z90.710 Acquired absence of both cervix and uterus; Z90.49 Acquired absence of other specified parts of digestive tract; Z98.890 Other specified postprocedural states

== ENCOUNTER 2019-10-13 18:59 | Emergency (ER) | payer OTHER ==
[~2019-10-13] VITALS: Ht 157.4 cm; Wt 60.8 kg
[2019-10-13 19:08] VITALS: BP 132/76
[2019-10-13 19:58] LABS: BASO # 0.1 10*3/uL (0.0-0.1); BASO % 0.5 % (0.0-1.0); EOS # 0.1 10*3/uL (0.0-0.4); HEMATOCRIT 43.3 % (37.0-47.0); HEMOGLOBIN 13.6 g/dl (12.0-16.0); LYMPH # 2.8 10*3/uL (1.3-4.4); LYMPH % 29.1 % (27.0-41.0); MEAN CELL VOLUME 89.8 fl (81.0-99.0); MEAN CORPUSCULAR HGB 28.2 pg (27.0-31.0); MEAN CORPUSCULAR HGB CONC 31.4 g/dl (33.0-37.0); MEAN PLATELET VOLUME 9.5 fl (9.6-12.3); MONO # 0.6 10*3/uL (0.1-1.0); MONO % 6.4 % (3.0-9.0); NEUT % 62.7 % (47.0-73.0); PLATELET COUNT AUTOMATED 358 10*3/uL (130-400); RED BLOOD COUNT 4.82 10*6/uL (4.10-5.10); RED CELL DISTRI WIDTH 14.6 % (0-14.5); WHITE BLOOD COUNT 9.6 10*3/uL (4.8-10.8)
[2019-10-13 20:13] LABS: ALBUMIN 3.3 gm/dl (3.1-4.5); ALKALINE PHOSPHATASE 95 U/L (45-117); BUN 13 mg/dl (7-24); CHLORIDE 106 mmol/L (98-107); CREATININE 0.77 mg/dL (0.55-1.02); LIPASE 122 U/L (73-393); POTASSIUM 3.4 mmol/L (3.5-5.1); SGOT/AST 16 IU/L (3-35); SGPT/ALT 31 U/L (12-78); SODIUM 139 mmol/L (136-145)
[2019-10-13 21:32] LABS: BILIRUBIN NEGATIVE (NEGATIVE); BLOOD NEGATIVE (NEGATIVE); CLARITY CLEAR (CLEAR); COLOR YELLOW (YELLOW); GLUCOSE NEGATIVE (NEGATIVE); KETONE NEGATIVE (NEGATIVE); LEUKO ESTERASE NEGATIVE (NEGATIVE); NITRITE NEGATIVE (NEGATIVE); UROBILINOGEN 0.2 E.U./dl (0.2-1.0)
[2019-10-13 21:33] LABS: BACTERIA TRACE; EPITHELIAL CELLS 15-20; RBC 0-2 rbc/hpf (0-2); WBC 0-2 wbc/hpf (0-5)
== END 2019-10-13 23:00 | disposition left against medical advice (07) ==
LOC: ED 18:59
PROVIDERS: Emergency Medicine
DX: R10.31 Right lower quadrant pain (principal); G89.29 Other chronic pain; J44.9 Chronic obstructive pulmonary disease, unspecified; I10 Essential (primary) hypertension; F32.9 Major depressive disorder, single episode, unspecified; F41.9 Anxiety disorder, unspecified; E03.9 Hypothyroidism, unspecified; K21.9 Gastro-esophageal reflux disease without esophagitis; E11.9 Type 2 diabetes mellitus without complications; G47.33 Obstructive sleep apnea (adult) (pediatric); F17.200 Nicotine dependence, unspecified, uncomplicated; Z88.8 Allergy status to other drugs, medicaments and biological substances; Z79.899 Other long term (current) drug therapy; Z88.0 Allergy status to penicillin; Z79.2 Long term (current) use of antibiotics; Z90.710 Acquired absence of both cervix and uterus; Z90.49 Acquired absence of other specified parts of digestive tract

== ENCOUNTER 2019-10-28 18:06 | Emergency (ER) | payer OTHER ==
[~2019-10-28] VITALS: Ht 157.4 cm; Wt 63.5 kg
[2019-10-28 18:17] VITALS: BP 165/93
[2019-10-28 18:52] LABS: BASO # 0.1 10*3/uL (0.0-0.1); BASO % 0.5 % (0.0-1.0); EOS # 0.1 10*3/uL (0.0-0.4); EOS % 1.2 % (1.0-4.0); HEMATOCRIT 47.7 % (37.0-47.0); LYMPH % 33.4 % (27.0-41.0); MEAN CORPUSCULAR HGB 27.5 pg (27.0-31.0); MEAN CORPUSCULAR HGB CONC 30.6 g/dl (33.0-37.0); MEAN PLATELET VOLUME 9.2 fl (9.6-12.3); MONO # 0.6 10*3/uL (0.1-1.0); MONO % 4.9 % (3.0-9.0); NEUT # 7.2 10*3/uL (2.3-7.9); NEUT % 59.6 % (47.0-73.0); PLATELET COUNT AUTOMATED 370 10*3/uL (130-400); RED CELL DISTRI WIDTH 14.6 % (0-14.5); WHITE BLOOD COUNT 12.1 10*3/uL (4.8-10.8)
[2019-10-28 18:57] LABS: COLOR YELLOW (YELLOW)
[2019-10-28 18:58] LABS: BILIRUBIN NEGATIVE (NEGATIVE); BLOOD TRACE-INTACT (NEGATIVE); CLARITY CLEAR (CLEAR); GLUCOSE NEGATIVE (NEGATIVE); KETONE NEGATIVE (NEGATIVE); LEUKO ESTERASE NEGATIVE (NEGATIVE); NITRITE NEGATIVE (NEGATIVE); UROBILINOGEN 0.2 E.U./dl (0.2-1.0)
[2019-10-28 19:09] LABS: ALBUMIN 3.8 gm/dl (3.1-4.5); ALKALINE PHOSPHATASE 101 U/L (45-117); BUN 14 mg/dl (7-24); CHLORIDE 103 mmol/L (98-107); CREATININE 1.02 mg/dL (0.55-1.02); POTASSIUM 3.6 mmol/L (3.5-5.1); SGOT/AST 16 IU/L (3-35); SGPT/ALT 30 U/L (12-78); SODIUM 138 mmol/L (136-145); TOTAL PROTEIN 8.1 gm/dL (6.4-8.2)
[2019-10-28] MEDS ORDERED: CEPHALEXIN500 M1 PO (21:47)
== END 2019-10-28 21:52 | disposition home or self-care (01) ==
LOC: ED 18:06
PROVIDERS: Nurse Practitioner Family
DX: R30.0 Dysuria (principal); R10.31 Right lower quadrant pain; R10.32 Left lower quadrant pain; J44.9 Chronic obstructive pulmonary disease, unspecified; J32.9 Chronic sinusitis, unspecified; K21.9 Gastro-esophageal reflux disease without esophagitis; F41.9 Anxiety disorder, unspecified; F32.9 Major depressive disorder, single episode, unspecified; I10 Essential (primary) hypertension; F17.200 Nicotine dependence, unspecified, uncomplicated; Z88.8 Allergy status to other drugs, medicaments and biological substances; Z88.0 Allergy status to penicillin; Z79.899 Other long term (current) drug therapy; Z79.2 Long term (current) use of antibiotics; Z90.49 Acquired absence of other specified parts of digestive tract; Z90.710 Acquired absence of both cervix and uterus

== ENCOUNTER 2019-11-12 12:12 | Inpatient (IN) | payer OTHER ==
[2019-11-12] VITALS (7 sets, daily range): BP systolic 117–170; BP diastolic 41–411
[~2019-11-12] VITALS: Ht 157.4 cm; Wt 76.0 kg
[~2019-11-12 12:12] MED LIST changes: +CEPHALEXIN500 M1 PO
[2019-11-12 12:52] LABS: BASO # 0.1 10*3/uL (0.0-0.1); BASO % 0.5 % (0.0-1.0); EOS # 0.2 10*3/uL (0.0-0.4); EOS % 1.2 % (1.0-4.0); HEMATOCRIT 48.1 % (37.0-47.0); LYMPH # 3.9 10*3/uL (1.3-4.4); LYMPH % 26.2 % (27.0-41.0); MEAN CELL VOLUME 91.4 fl (81.0-99.0); MEAN CORPUSCULAR HGB 27.8 pg (27.0-31.0); MEAN CORPUSCULAR HGB CONC 30.4 g/dl (33.0-37.0); MEAN PLATELET VOLUME 9.8 fl (9.6-12.3); MONO # 0.9 10*3/uL (0.1-1.0); MONO % 6.4 % (3.0-9.0); NEUT # 9.6 10*3/uL (2.3-7.9); NEUT % 65.2 % (47.0-73.0); PLATELET COUNT AUTOMATED 404 10*3/uL (130-400); RED BLOOD COUNT 5.26 10*6/uL (4.10-5.10); RED CELL DISTRI WIDTH 14.3 % (0-14.5); WHITE BLOOD COUNT 14.7 10*3/uL (4.8-10.8)
[2019-11-12 13:03] LABS: ACT PARTIAL THROMBO TIME 29.6 SECONDS (20.0-32.1); INTERNATIONAL NORM RATIO 0.9 (2.0-3.5)
[2019-11-12 13:07] LABS: ALBUMIN 3.5 gm/dl (3.1-4.5); ALKALINE PHOSPHATASE 100 U/L (45-117); BUN 15 mg/dl (7-24); CHLORIDE 109 mmol/L (98-107); LIPASE 138 U/L (73-393); POTASSIUM 3.9 mmol/L (3.5-5.1); SGOT/AST 18 IU/L (3-35); SGPT/ALT 27 U/L (12-78); SODIUM 140 mmol/L (136-145); TOTAL PROTEIN 8.1 gm/dL (6.4-8.2)
[2019-11-12 13:08] LABS: TROPONIN I < 0.015 ng/ml (<0.045)
[2019-11-12 13:23] LABS: BILIRUBIN NEGATIVE (NEGATIVE); BLOOD TRACE-LYSED (NEGATIVE); CLARITY CLEAR (CLEAR); COLOR YELLOW (YELLOW); GLUCOSE NEGATIVE (NEGATIVE); KETONE NEGATIVE (NEGATIVE); LEUKO ESTERASE TRACE (NEGATIVE); NITRITE NEGATIVE (NEGATIVE); SPECIFIC GRAVITY 1.025 (1.005-1.030); UROBILINOGEN 0.2 E.U./dl (0.2-1.0)
[2019-11-12 13:34] LABS: BACTERIA 1+
[2019-11-12] MEDS ORDERED: KEFLEX500 M1 PO (18:43)
[2019-11-12] MEDS ORDERED: CYMBALTA30 MG PO (18:44)
[2019-11-12] MEDS ORDERED: METOPROLOL SUC100 M1 PO (18:45)
[2019-11-12] MEDS ORDERED: NEURONTIN300 MG PO (18:52)
[2019-11-13] VITALS: BP 162/84
[2019-11-13 08:00] VITALS: BP 166/81
[2019-11-13 12:00] VITALS: BP 136/73
[2019-11-13 16:00] VITALS: BP 120/67
[2019-11-13 20:00] VITALS: BP 130/70
[2019-11-14] VITALS: BP 134/72
[2019-11-14 08:00] VITALS: BP 154/88
[2019-11-14 08:51] LABS: BASO % 0.2 % (0.0-1.0); EOS # 0.2 10*3/uL (0.0-0.4); EOS % 1.8 % (1.0-4.0); HEMATOCRIT 37.4 % (37.0-47.0); LYMPH # 3.9 10*3/uL (1.3-4.4); LYMPH % 38.6 % (27.0-41.0); MEAN CELL VOLUME 91.7 fl (81.0-99.0); MEAN CORPUSCULAR HGB 27.9 pg (27.0-31.0); MEAN CORPUSCULAR HGB CONC 30.5 g/dl (33.0-37.0); MEAN PLATELET VOLUME 9.7 fl (9.6-12.3); MONO # 0.4 10*3/uL (0.1-1.0); NEUT # 5.6 10*3/uL (2.3-7.9); NEUT % 54.9 % (47.0-73.0); PLATELET COUNT AUTOMATED 292 10*3/uL (130-400); RED BLOOD COUNT 4.08 10*6/uL (4.10-5.10); RED CELL DISTRI WIDTH 14.4 % (0-14.5); WHITE BLOOD COUNT 10.1 10*3/uL (4.8-10.8)
[2019-11-14] MEDS ORDERED: CIPRO500 MG PO (09:05)
[2019-11-14] MEDS ORDERED: NORCO 5-325 TA1 EACH PO (09:06)
== END 2019-11-14 09:37 | disposition home or self-care (01) | DRG 463 ==
LOC: ED 12:12 → 4NE 17:26 → EDHOLD 17:26 → 4NE 17:34
PROVIDERS: Emergency Medicine; ADMIT Internal Medicine
DX: N39.0 Urinary tract infection, site not specified (principal); I10 Essential (primary) hypertension; M47.9 Spondylosis, unspecified; F41.9 Anxiety disorder, unspecified; G89.4 Chronic pain syndrome; E11.9 Type 2 diabetes mellitus without complications; E03.9 Hypothyroidism, unspecified; F41.0 Panic disorder [episodic paroxysmal anxiety]; I48.91 Unspecified atrial fibrillation; G30.9 Alzheimer's disease, unspecified; Z88.0 Allergy status to penicillin; Z88.8 Allergy status to other drugs, medicaments and biological substances; Z79.899 Other long term (current) drug therapy; Z90.49 Acquired absence of other specified parts of digestive tract; Z90.710 Acquired absence of both cervix and uterus

== ENCOUNTER 2019-11-19 15:50 | Inpatient (IN) | payer OTHER ==
[~2019-11-19] VITALS: Ht 157.5 cm; Wt 78.0 kg
[2019-11-19] VITALS (10 sets, daily range): BP systolic 112–138; BP diastolic 61–74
[~2019-11-19 15:50] MED LIST changes: +CYMBALTA30 MG PO; +KEFLEX500 M1 PO; +NEURONTIN300 MG PO
[2019-11-19 16:35] LABS: BASO # 0.1 10*3/uL (0.0-0.1); BASO % 0.3 % (0.0-1.0); EOS # 0.1 10*3/uL (0.0-0.4); EOS % 0.3 % (1.0-4.0); HEMATOCRIT 42.6 % (37.0-47.0); LYMPH # 2.5 10*3/uL (1.3-4.4); LYMPH % 14.3 % (27.0-41.0); MEAN CELL VOLUME 91.4 fl (81.0-99.0); MEAN CORPUSCULAR HGB 28.1 pg (27.0-31.0); MEAN CORPUSCULAR HGB CONC 30.8 g/dl (33.0-37.0); MEAN PLATELET VOLUME 9.4 fl (9.6-12.3); MONO % 5.9 % (3.0-9.0); NEUT # 13.8 10*3/uL (2.3-7.9); NEUT % 78.5 % (47.0-73.0); PLATELET COUNT AUTOMATED 392 10*3/uL (130-400); RED BLOOD COUNT 4.66 10*6/uL (4.10-5.10); RED CELL DISTRI WIDTH 14.6 % (0-14.5); WHITE BLOOD COUNT 17.7 10*3/uL (4.8-10.8)
[2019-11-19 16:45] LABS: ACT PARTIAL THROMBO TIME 26.8 SECONDS (20.0-32.1); INTERNATIONAL NORM RATIO 0.9 (2.0-3.5)
[2019-11-19 16:47] LABS: CREATININE 1.11 mg/dL (0.55-1.02); POTASSIUM 3.7 mmol/L (3.5-5.1)
[2019-11-20 08:08] VITALS: BP 135/63
[2019-11-20 16:00] VITALS: BP 102/55
[2019-11-20 20:00] VITALS: BP 105/57
[2019-11-21] VITALS: BP 108/77
[2019-11-21] MEDS ORDERED: MIRTAZAPINE15 M2 PO (00:57)
[2019-11-21 06:26] LABS: HEMATOCRIT 38.2 % (37.0-47.0); MEAN CELL VOLUME 91.6 fl (81.0-99.0); MEAN CORPUSCULAR HGB 27.8 pg (27.0-31.0); MEAN CORPUSCULAR HGB CONC 30.4 g/dl (33.0-37.0); MEAN PLATELET VOLUME 9.4 fl (9.6-12.3); PLATELET COUNT AUTOMATED 308 10*3/uL (130-400); RED BLOOD COUNT 4.17 10*6/uL (4.10-5.10); RED CELL DISTRI WIDTH 14.4 % (0-14.5); WHITE BLOOD COUNT 16.7 10*3/uL (4.8-10.8)
[2019-11-21 06:51] LABS: BUN 16 mg/dl (7-24); CHLORIDE 98 mmol/L (98-107); CREATININE 0.83 mg/dL (0.55-1.02); POTASSIUM 3.4 mmol/L (3.5-5.1); SODIUM 136 mmol/L (136-145)
[2019-11-21 07:02] LABS: PLATELET SUFFICIENCY NORMAL (NORMAL); TOTAL CELLS COUNTED 100 #CELLS
[2019-11-21 08:00] VITALS: BP 121/59
[2019-11-21 16:00] VITALS: BP 121/65
[2019-11-22] VITALS: BP 127/61
[2019-11-22 08:00] VITALS: BP 136/69
[2019-11-22 16:00] VITALS: BP 156/65
[2019-11-23] VITALS: BP 129/72
[2019-11-23 06:54] LABS: CHLORIDE 100 mmol/L (98-107)
[2019-11-23 06:55] LABS: CREATININE 0.88 mg/dL (0.55-1.02)
[2019-11-23 07:10] LABS: SODIUM 136 mmol/L (136-145)
[2019-11-23 07:11] LABS: BUN 33 mg/dl (7-24); POTASSIUM 4.9 mmol/L (3.5-5.1)
[2019-11-23 08:00] VITALS: BP 147/79
[2019-11-23 16:00] VITALS: BP 125/53
[2019-11-24] VITALS (14 sets, daily range): BP systolic 123–179; BP diastolic 62–96
[2019-11-24 07:19] LABS: BUN 31 mg/dl (7-24); CHLORIDE 100 mmol/L (98-107); CREATININE 0.87 mg/dL (0.55-1.02); POTASSIUM 5.2 mmol/L (3.5-5.1); SODIUM 132 mmol/L (136-145)
[2019-11-25 00:03] VITALS: BP 160/82
[2019-11-25 06:56] LABS: BASO # 0.1 10*3/uL (0.0-0.1); BASO % 0.4 % (0.0-1.0); EOS # 0.2 10*3/uL (0.0-0.4); EOS % 1.4 % (1.0-4.0); HEMATOCRIT 40.1 % (37.0-47.0); LYMPH # 2.2 10*3/uL (1.3-4.4); LYMPH % 15.3 % (27.0-41.0); MEAN CELL VOLUME 89.1 fl (81.0-99.0); MEAN CORPUSCULAR HGB 27.3 pg (27.0-31.0); MEAN CORPUSCULAR HGB CONC 30.7 g/dl (33.0-37.0); MEAN PLATELET VOLUME 9.9 fl (9.6-12.3); MONO # 1.1 10*3/uL (0.1-1.0); MONO % 7.3 % (3.0-9.0); NEUT # 10.9 10*3/uL (2.3-7.9); NEUT % 75.1 % (47.0-73.0); PLATELET COUNT AUTOMATED 410 10*3/uL (130-400); WHITE BLOOD COUNT 14.6 10*3/uL (4.8-10.8)
[2019-11-25 07:18] LABS: CHLORIDE 100 mmol/L (98-107); CREATININE 0.79 mg/dL (0.55-1.02); POTASSIUM 4.3 mmol/L (3.5-5.1); SODIUM 133 mmol/L (136-145)
[2019-11-25 07:21] LABS: BUN 16 mg/dl (7-24)
[2019-11-25 08:00] VITALS: BP 156/82
[2019-11-25 16:00] VITALS: BP 130/68
[2019-11-25 20:00] VITALS: BP 151/72
[2019-11-26] VITALS: BP 148/82
[2019-11-26 08:00] VITALS: BP 150/79
[2019-11-26 16:00] VITALS: BP 125/80
[2019-11-26 20:00] VITALS: BP 138/70
[2019-11-27] VITALS: BP 146/68
[2019-11-27 08:00] VITALS: BP 156/68
[2019-11-27 16:00] VITALS: BP 116/58
[2019-11-27 20:00] VITALS: BP 163/81
[2019-11-28] VITALS: BP 156/76
[2019-11-28] MEDS ORDERED: XARELTO10 MG PO (10:18)
[2019-11-28] MEDS ORDERED: Duragesic 50 M50 MCG T (10:18)
[2019-11-28] MEDS ORDERED: HYDROCODONE-AC1 EAC2 PO (10:18)
[2019-11-28] MEDS ORDERED: NICODERM T (10:18)
[2019-12-03] MEDS ORDERED: AMBIEN5 MG PO (15:13)
[2019-12-03] MEDS ORDERED: REGLAN5 MG PO (15:13)
== END 2019-11-28 12:11 | disposition other institution (70) | DRG 342 ==
LOC: ED 15:50 → EDHOLD 18:42 → ICCU 18:42 → 5E 18:42 → ICCU 19:08 → 5E 11-20 09:25
PROVIDERS: Emergency Medicine; ADMIT Internal Medicine
PROC: 2W3RX1Z Immobilization of Left Lower Leg using Splint (ICD-10-PCS; 2019-11-19)
PROC: 0SSGXZZ Reposition Left Ankle Joint, External Approach (ICD-10-PCS; 2019-11-19)
PROC: 0SSG35Z Reposition Left Ankle Joint with External Fixation Device, Percutaneous Approach (ICD-10-PCS; principal; 2019-11-24)
DX: S82.852A Displaced trimalleolar fracture of left lower leg, initial encounter for closed fracture (principal); I48.21 Permanent atrial fibrillation; I10 Essential (primary) hypertension; G89.4 Chronic pain syndrome; I25.10 Atherosclerotic heart disease of native coronary artery without angina pectoris; F33.1 Major depressive disorder, recurrent, moderate; F41.1 Generalized anxiety disorder; E89.0 Postprocedural hypothyroidism; M47.896 Other spondylosis, lumbar region; J44.9 Chronic obstructive pulmonary disease, unspecified; G30.9 Alzheimer's disease, unspecified; F02.80 Dementia in other diseases classified elsewhere, unspecified severity, without behavioral disturbance, psychotic disturbance, mood disturbance, and anxiety; K21.9 Gastro-esophageal reflux disease without esophagitis; G47.33 Obstructive sleep apnea (adult) (pediatric); E87.5 Hyperkalemia; E11.42 Type 2 diabetes mellitus with diabetic polyneuropathy; E11.51 Type 2 diabetes mellitus with diabetic peripheral angiopathy without gangrene; F17.210 Nicotine dependence, cigarettes, uncomplicated; W19.XXXA Unspecified fall, initial encounter; Y93.89 Activity, other specified; Y92.89 Other specified places as the place of occurrence of the external cause; Y99.8 Other external cause status; Z88.0 Allergy status to penicillin; Z88.8 Allergy status to other drugs, medicaments and biological substances; Z79.899 Other long term (current) drug therapy; Z90.49 Acquired absence of other specified parts of digestive tract; Z90.710 Acquired absence of both cervix and uterus; Z82.49 Family history of ischemic heart disease and other diseases of the circulatory system; Z83.3 Family history of diabetes mellitus

== ENCOUNTER → 2019-12-10 | Day surgery (SDC) | payer OTHER ==
[2019-12-10] VITALS (9 sets, daily range): BP systolic 109–138; BP diastolic 53–71
[~2019-12-10] VITALS: Wt 81.6 kg
[~2019-12-10] MED LIST changes: +AMBIEN5 MG PO; +CEFUROXIME AXE250 MG PO; +Duragesic 50 M50 MCG T; +HYDROCODONE-AC1 EAC2 PO; +NICODERM T; +NORCO 10-325 T1 EACH PO; +REGLAN5 MG PO; +XARELTO10 MG PO
--- NOTE | 2019-12-10 15:57 | NUR ---
milli carr here to transport patient to [facility] in [place] [facility] report to brigette
== END | disposition home or self-care (01) ==
LOC: SDC 12-04 08:00
DX: S93.422A Sprain of deltoid ligament of left ankle, initial encounter (principal); S82.92XA Unspecified fracture of left lower leg, initial encounter for closed fracture; M25.372 Other instability, left ankle; I10 Essential (primary) hypertension; E11.9 Type 2 diabetes mellitus without complications; K21.9 Gastro-esophageal reflux disease without esophagitis; J44.9 Chronic obstructive pulmonary disease, unspecified; I48.91 Unspecified atrial fibrillation; F41.9 Anxiety disorder, unspecified; F32.9 Major depressive disorder, single episode, unspecified; Z87.891 Personal history of nicotine dependence; Z79.899 Other long term (current) drug therapy; Z98.890 Other specified postprocedural states; X58.XXXA Exposure to other specified factors, initial encounter; Y93.89 Activity, other specified; Y92.89 Other specified places as the place of occurrence of the external cause; Y99.8 Other external cause status

== ENCOUNTER 2019-12-24 09:27 | Emergency (ER) | payer OTHER ==
[~2019-12-24] VITALS: Wt 79.4 kg
[~2019-12-24 09:27] MED LIST changes: -CEFUROXIME AXE250 MG PO; -NORCO 10-325 T1 EACH PO
[2019-12-24 09:59] LABS: BASO # 0.1 10*3/uL (0.0-0.1); BASO % 0.5 % (0.0-1.0); EOS # 0.2 10*3/uL (0.0-0.4); EOS % 1.6 % (1.0-4.0); HEMATOCRIT 34.9 % (37.0-47.0); LYMPH # 2.5 10*3/uL (1.3-4.4); LYMPH % 18.8 % (27.0-41.0); MEAN CELL VOLUME 90.6 fl (81.0-99.0); MEAN CORPUSCULAR HGB 26.8 pg (27.0-31.0); MEAN CORPUSCULAR HGB CONC 29.5 g/dl (33.0-37.0); MEAN PLATELET VOLUME 9.2 fl (9.6-12.3); MONO % 7.4 % (3.0-9.0); NEUT # 9.3 10*3/uL (2.3-7.9); NEUT % 70.6 % (47.0-73.0); NUCLEATED RED BLOOD CELL 0.3 % (0.0-0.0); PLATELET COUNT AUTOMATED 576 10*3/uL (130-400); RED BLOOD COUNT 3.85 10*6/uL (4.10-5.10); RED CELL DISTRI WIDTH 15.9 % (0-14.5); WHITE BLOOD COUNT 13.2 10*3/uL (4.8-10.8)
[2019-12-24 10:12] LABS: ACT PARTIAL THROMBO TIME 33.6 SECONDS (20.0-32.1); INTERNATIONAL NORM RATIO 1.1 (2.0-3.5)
[2019-12-24 10:22] LABS: ALBUMIN 2.8 gm/dl (3.1-4.5); BUN 12 mg/dl (7-24); CHLORIDE 103 mmol/L (98-107); CREATININE 0.94 mg/dL (0.55-1.02); POTASSIUM 3.4 mmol/L (3.5-5.1); SGOT/AST 20 IU/L (3-35); SGPT/ALT 21 U/L (12-78); SODIUM 137 mmol/L (136-145)
[2019-12-24 10:24] LABS: ALKALINE PHOSPHATASE 200 U/L (45-117)
[2019-12-24 10:27] LABS: TROPONIN I < 0.015 ng/ml (<0.045)
[2019-12-24 13:57] LABS: BILIRUBIN NEGATIVE (NEGATIVE); BLOOD NEGATIVE (NEGATIVE); CLARITY CLEAR (CLEAR); COLOR YELLOW (YELLOW); GLUCOSE NEGATIVE (NEGATIVE); KETONE NEGATIVE (NEGATIVE); LEUKO ESTERASE TRACE (NEGATIVE); NITRITE NEGATIVE (NEGATIVE); SPECIFIC GRAVITY 1.015 (1.005-1.030); UROBILINOGEN 0.2 E.U./dl (0.2-1.0)
[2019-12-24 13:58] LABS: EPITHELIAL CELLS 41-50
[2019-12-24 13:59] LABS: BACTERIA TRACE
[2019-12-24 15:06] VITALS: BP 121/57
[2019-12-24] MEDS ORDERED: NORCO 10-325 T1 EACH PO (15:58)
[2019-12-24] MEDS ORDERED: ZOFRAN4 MG PO (15:59)
== END 2019-12-24 16:06 ==
LOC: ED 09:27
PROVIDERS: Emergency Medicine
DX: K29.70 Gastritis, unspecified, without bleeding (principal); I10 Essential (primary) hypertension; J44.9 Chronic obstructive pulmonary disease, unspecified; K21.9 Gastro-esophageal reflux disease without esophagitis; G89.29 Other chronic pain; E11.9 Type 2 diabetes mellitus without complications; F17.200 Nicotine dependence, unspecified, uncomplicated; Z88.8 Allergy status to other drugs, medicaments and biological substances; Z88.0 Allergy status to penicillin; Z88.6 Allergy status to analgesic agent; Z79.899 Other long term (current) drug therapy

== ENCOUNTER 2019-12-26 21:36 | Inpatient (IN) | payer OTHER ==
[~2019-12-26] VITALS: Ht 157.5 cm; Wt 77.1 kg
[~2019-12-26 21:36] MED LIST changes: +NORCO 10-325 T1 EACH PO
[2019-12-26 21:40] VITALS: BP 145/69
[2019-12-26 22:18] LABS: BASO # 0.1 10*3/uL (0.0-0.1); BASO % 0.5 % (0.0-1.0); EOS # 0.1 10*3/uL (0.0-0.4); EOS % 0.7 % (1.0-4.0); HEMATOCRIT 35.1 % (37.0-47.0); LYMPH # 3.7 10*3/uL (1.3-4.4); LYMPH % 24.7 % (27.0-41.0); MEAN CORPUSCULAR HGB 26.1 pg (27.0-31.0); MEAN CORPUSCULAR HGB CONC 29.6 g/dl (33.0-37.0); MEAN PLATELET VOLUME 9.3 fl (9.6-12.3); MONO % 6.5 % (3.0-9.0); NEUT % 67.2 % (47.0-73.0); PLATELET COUNT AUTOMATED 558 10*3/uL (130-400); RED BLOOD COUNT 3.99 10*6/uL (4.10-5.10); RED CELL DISTRI WIDTH 16.1 % (0-14.5); WHITE BLOOD COUNT 14.8 10*3/uL (4.8-10.8)
[2019-12-26 22:35] LABS: ALKALINE PHOSPHATASE 212 U/L (45-117); BUN 8 mg/dl (7-24); CHLORIDE 101 mmol/L (98-107); CREATININE 0.83 mg/dL (0.55-1.02); LIPASE 84 U/L (73-393); POTASSIUM 2.9 mmol/L (3.5-5.1); SGOT/AST 18 IU/L (3-35); SGPT/ALT 21 U/L (12-78); SODIUM 133 mmol/L (136-145); TOTAL PROTEIN 7.4 gm/dL (6.4-8.2)
[2019-12-26 22:56] LABS: BILIRUBIN NEGATIVE (NEGATIVE); BLOOD NEGATIVE (NEGATIVE); CLARITY SL CLOUDY (CLEAR); COLOR YELLOW (YELLOW); GLUCOSE NEGATIVE (NEGATIVE); KETONE NEGATIVE (NEGATIVE); LEUKO ESTERASE 2+ (NEGATIVE); NITRITE NEGATIVE (NEGATIVE); PH 6.5 (5.0-9.0); SPECIFIC GRAVITY 1.015 (1.005-1.030); UROBILINOGEN 0.2 E.U./dl (0.2-1.0)
[2019-12-26 23:05] LABS: BACTERIA TRACE; EPITHELIAL CELLS 31-40; WBC 16-20 wbc/hpf (0-5)
[2019-12-26 23:38] VITALS: BP 138/68
--- NOTE | 2019-12-26 23:57 | NUR ---
REPORT FROM DREA HUTCHINS
[2019-12-27 01:15] VITALS: BP 132/77
--- NOTE | 2019-12-27 01:48 | NUR ---
PT REFUSED LEFT ANKLE TO BE UNWRAPPED AGAIN FOR PHOTOS
[2019-12-27 02:00] VITALS: BP 141/63
--- NOTE | 2019-12-27 02:00 | NUR ---
A 69, admitted to , under the services of TIERNEY Trejo MD with a diagnosis of UTI. Chief complaint is BACK AND LEFT SIDE PAIN. Patient arrived via ambulance from ER. Monitor applied. Initial assessment completed. Vital signs taken and recorded. TIERNEY TREJO MD notified of admission to the unit. Orders received. See assessment for past medical history, medications and allergies. Patient and/or family oriented to unit. [facility] visitation policy reviewed. Clothing/patient valuable form completed. SHANNON DAY
--- NOTE | 2019-12-27 02:25 | NUR ---
Unable to verify home meds.
--- NOTE | 2019-12-27 02:50 | NUR ---
Patient given zofran and dilaudid for pain in back and rt side and nausea. Patient crying in pain, rates 10/10. Will monitor and reassess.
--- NOTE | 2019-12-27 05:57 | NUR ---
Patient teary eyed and wants a pain pill. Ultram given. Will monitor and reassess.
--- NOTE | 2019-12-27 07:40 | NUR ---
PATIENT KEEPS PUTTING CALL LIGHT ON C/O NAUSEA AND ABD PAIN. EDUCATED NOT TIME YET. PATIENT CRIES AND PLEADS. SOON RN WALKS OUT OF ROOM PATIENT STOPS CRYING AND DRY HEAVING.
[2019-12-27 08:00] VITALS: BP 146/64
--- NOTE | 2019-12-27 09:54 | NUR ---
PATIENT CRYING FOR PAIN MEDICINE AND NAUSEA MEDICINE, EDUCATED NOT TIME, WILL GIVE WHEN AVAILABLE. DRY HEAVING AND CRYING STOPS WHEN LEAVING ROOM.
--- NOTE | 2019-12-27 11:37 | NUR ---
Nursing Consultant in to talk to patient. Patient states lives at HOME with AND SON. There are NO steps in the home. Physician: PRAVIN [facility]acy: [facility] Home health services: PT DOES NOT KNOW COMPANY NAME Patient's level of ADLs: MINIMAL ASSIST Patient has working utilities: YES DME: WALKER Follow-up physician's appointment after d/c: PREFERS TO MAKE OWN ON DISCHARGE Does patient want to access PORTAL?: NO Discharge plan PT LIVES AT HOME WITH HER SON AND . STATES SHE HAS HOME HEALTH SINCE BEING DISCHARGED FROM [facility] BUT DOES NOT KNOW NAME OF COMPANY. WILL CHECK WITH SON. TALKED WITH PT ABOUT SNF BUT SHE REFUSES, STATES I AM GOING HOME. WILL RESUME HH WHEN ABLE TO FIND OUT WHAT COMPANY IT IS. WILL CONTINUE TO FOLLOW. STATES SHE WILL HAVE A RIDE HOME. . GERA DERAS
--- NOTE | 2019-12-27 11:42 | NUR ---
CALLED SON TO SEE IF HE KNEW NAME OF HOME HEALTH COMPANY, HE DOES NOT KNOW NAME EITHER. WILL CHECK WITH [facility] ON SUNDAY TO SEE IF THEY CAN PROVIDE COMPANY NAME.
--- NOTE | 2019-12-27 11:52 | NUR ---
PATIENT MEDICATED WITH PRN ZOFRAN AND ULTRAM PER ORDERS AND MULTIPLE REQUESTS FOR NAUSEA AND BELLY/BACK PAIN.
[2019-12-27 12:00] VITALS: BP 127/56
--- NOTE | 2019-12-27 12:30 | NUR ---
SHERRY AND MARJAN HELPED PATIENT SLEEPING.
[2019-12-27 16:00] VITALS: BP 118/58
--- NOTE | 2019-12-27 18:23 | NUR ---
MEDICATED WITH PRN ZOFRAN PER ORDER AND REQUEST.
[2019-12-27 20:00] VITALS: BP 105/50
--- NOTE | 2019-12-27 20:00 | NUR ---
ASSUMED CARE OF PATIENT. PATIENT IS AAOX3 RESTING IN BED WITH EASY AND REGULAR RESPERS ON ROOM AIR. ASSESSMENT IS COMPLETE WITH NO S/S OF DISTRESS. PATIENT C/O PAIN TO FOOT. PAIN MEDICATION NOT DUE AT THIS TIME. BED IS LOW, LOCKED, AND CALL LIGHT IS WITHIN REACH. WILL CONTINUE TO MONITOR, SEE INTERVENTION SCREEN.
--- NOTE | 2019-12-27 21:06 | NUR ---
PRN ULTRAM GIVEN ORDERED. WILL MONITOR EFFECT.
--- NOTE | 2019-12-27 22:06 | NUR ---
PRN ULTRAM NOT EFFECTIVE PER PATIENT. CALL PLACED TO DR. COSTELLO, NO NEW ORDERS AT THIS TIME.
[2019-12-28] VITALS: BP 147/75
--- NOTE | 2019-12-28 00:24 | NUR ---
PATIENT REMOVED MEGHAN WRAP TO LEFT FOOT STATING "I NEED TO GET SOME RELIEF FOR THIS PAIN IN MY FOOT. I DON'T KNOW WHAT I AM GOING TO DO THIS IS UNBEARABLE." OFFERED ICE PACK TO TRY TO RELIEVE THE PAIN PATIENT REFUSED. NOTICED BLACK AREA TO HEEL. MEASUREMENTS OBTAINED AND PRAVIN CALLED FOR WOUND CARE ORDERS.
--- NOTE | 2019-12-28 02:29 | NUR ---
PRN ULTRAM GIVEN ORDERED. WILL MONITOR EFFECT.
--- NOTE | 2019-12-28 03:29 | NUR ---
PRN MEDICATION NOT EFFECTIVE PER PATIENT. CALL LIGHT IS WITHIN REACH.
--- NOTE | 2019-12-28 06:00 | NUR ---
DR. COSTELLO INTO SEE PATIENT. DR. COSTELLO REMOVED DRESSING TO LEFT FOOT TO SEE WOUND ON HEEL. DR. COSTELLO STATES "THIS IS NOTHING NEW, SHE HAS HAD THIS SINCE BEFORE HER ANKLE SURGERY." DRESSING RE-APPLIED. BED IS LOW, LOCKED, AND CALL LIGHT IS WITHIN REACH. WILL CONTINUE TO MONITOR.
--- NOTE | 2019-12-28 06:32 | NUR ---
CHART CHECK COMPLETE.
[2019-12-28] MEDS ORDERED: CEFUROXIME AXE250 MG PO (07:23)
[2019-12-28 07:30] LABS: BASO % 0.2 % (0.0-1.0); EOS # 0.2 10*3/uL (0.0-0.4); EOS % 1.8 % (1.0-4.0); HEMATOCRIT 31.8 % (37.0-47.0); LYMPH # 3.5 10*3/uL (1.3-4.4); LYMPH % 34.8 % (27.0-41.0); MEAN CELL VOLUME 90.1 fl (81.0-99.0); MEAN CORPUSCULAR HGB 26.1 pg (27.0-31.0); MEAN CORPUSCULAR HGB CONC 28.9 g/dl (33.0-37.0); MEAN PLATELET VOLUME 9.5 fl (9.6-12.3); MONO # 0.7 10*3/uL (0.1-1.0); MONO % 7.2 % (3.0-9.0); NEUT # 5.6 10*3/uL (2.3-7.9); NEUT % 55.6 % (47.0-73.0); PLATELET COUNT AUTOMATED 446 10*3/uL (130-400); RED BLOOD COUNT 3.53 10*6/uL (4.10-5.10); RED CELL DISTRI WIDTH 16.1 % (0-14.5)
[2019-12-28 07:56] LABS: BUN 8 mg/dl (7-24); CHLORIDE 108 mmol/L (98-107); CREATININE 0.75 mg/dL (0.55-1.02); POTASSIUM 3.2 mmol/L (3.5-5.1); SODIUM 140 mmol/L (136-145)
[2019-12-28 08:00] VITALS: BP 149/66
--- NOTE | 2019-12-28 09:00 | NUR ---
ULTRAM GIVEN FOR C/O BACK PAIN. RATES 8/10 ON PAIN SCALE. WILL MONITOR.
--- NOTE | 2019-12-28 10:51 | NUR ---
PT REFUSED D/C PHOTO'S. DRESSINGS WERE IN PLACE, PT DID NOT WANT THEM REMOVED
--- NOTE | 2019-12-28 10:51 | NUR ---
[facility] Discharge instructions reviewed with patient/family. Patient receptive and verbalizes understanding. Follow-up care arranged. Written instructions given to patient/family. SCOT IBARRA
== END 2019-12-28 10:51 | disposition home or self-care (01) | DRG 720 ==
LOC: ED 21:36 → EDHOLD 12-27 01:14 → 4E 12-27 01:14
PROVIDERS: Physician Assistant; ADMIT Internal Medicine
DX: A41.9 Sepsis, unspecified organism (principal); G89.4 Chronic pain syndrome; I10 Essential (primary) hypertension; E11.9 Type 2 diabetes mellitus without complications; F41.1 Generalized anxiety disorder; N39.0 Urinary tract infection, site not specified; E89.0 Postprocedural hypothyroidism; F17.210 Nicotine dependence, cigarettes, uncomplicated; I25.10 Atherosclerotic heart disease of native coronary artery without angina pectoris; F32.9 Major depressive disorder, single episode, unspecified; J44.9 Chronic obstructive pulmonary disease, unspecified; M47.816 Spondylosis without myelopathy or radiculopathy, lumbar region; Z88.6 Allergy status to analgesic agent; Z88.8 Allergy status to other drugs, medicaments and biological substances; Z88.0 Allergy status to penicillin; Z90.49 Acquired absence of other specified parts of digestive tract; Z90.710 Acquired absence of both cervix and uterus; Z83.3 Family history of diabetes mellitus; Z82.49 Family history of ischemic heart disease and other diseases of the circulatory system

== ENCOUNTER 2019-12-30 00:21 | Inpatient (IN) | payer OTHER ==
[~2019-12-30] VITALS: Ht 162.5 cm; Wt 90.7 kg
[2019-12-30] VITALS (11 sets, daily range): BP systolic 128–152; BP diastolic 60–87
[~2019-12-30 00:21] MED LIST changes: +CEFUROXIME AXE250 MG PO
--- NOTE | 2019-12-30 01:10 | NUR ---
PT MOVED BOWELS IN BED CHAUDHARI. LOOSE BM.. NO RELIEF OF BED CHAUDHARI
[2019-12-30 02:20] LABS: BASO # 0.1 10*3/uL (0.0-0.1); BASO % 0.4 % (0.0-1.0); EOS # 0.2 10*3/uL (0.0-0.4); EOS % 1.1 % (1.0-4.0); HEMATOCRIT 37.9 % (37.0-47.0); LYMPH # 4.4 10*3/uL (1.3-4.4); MEAN CORPUSCULAR HGB 26.1 pg (27.0-31.0); MEAN CORPUSCULAR HGB CONC 30.1 g/dl (33.0-37.0); MEAN PLATELET VOLUME 9.2 fl (9.6-12.3); MONO # 0.9 10*3/uL (0.1-1.0); MONO % 6.4 % (3.0-9.0); NEUT # 8.2 10*3/uL (2.3-7.9); NEUT % 59.7 % (47.0-73.0); PLATELET COUNT AUTOMATED 544 10*3/uL (130-400); RED BLOOD COUNT 4.36 10*6/uL (4.10-5.10); RED CELL DISTRI WIDTH 16.1 % (0-14.5); WHITE BLOOD COUNT 13.8 10*3/uL (4.8-10.8)
[2019-12-30 02:32] LABS: MEAN CELL VOLUME 86.9 fl (81.0-99.0)
[2019-12-30 02:39] LABS: ALBUMIN 3.3 gm/dl (3.1-4.5); ALKALINE PHOSPHATASE 196 U/L (45-117); BUN 6 mg/dl (7-24); CHLORIDE 102 mmol/L (98-107); CREATININE 0.81 mg/dL (0.55-1.02); POTASSIUM 2.6 mmol/L (3.5-5.1); SGOT/AST 21 IU/L (3-35); SGPT/ALT 29 U/L (12-78); SODIUM 138 mmol/L (136-145); TOTAL PROTEIN 7.9 gm/dL (6.4-8.2)
--- NOTE | 2019-12-30 03:06 | NUR ---
BOWEL AND BLADDER MIX SPECIMEN IN BED CHAUDHARI, UNABLE TO OBTAIN URINE SPECIMEN AT THIS TIME
--- NOTE | 2019-12-30 03:30 | NUR ---
tRANSFER OF CARE FROM JOANA HUTCHINS
--- NOTE | 2019-12-30 03:39 | NUR ---
AWARE OF PT WITH NAUSEA AND STATED SHE WOULD ORDERS SOMETHING AT THIS TIME.
[2019-12-30 03:47] LABS: BILIRUBIN NEGATIVE (NEGATIVE); BLOOD NEGATIVE (NEGATIVE); CLARITY SL CLOUDY (CLEAR); COLOR YELLOW (YELLOW); GLUCOSE NEGATIVE (NEGATIVE); KETONE NEGATIVE (NEGATIVE); NITRITE NEGATIVE (NEGATIVE); SPECIFIC GRAVITY 1.015 (1.005-1.030); UROBILINOGEN 0.2 E.U./dl (0.2-1.0)
[2019-12-30 03:48] LABS: LEUKO ESTERASE TRACE (NEGATIVE)
[2019-12-30 03:54] LABS: BACTERIA TRACE
--- NOTE | 2019-12-30 04:40 | NUR ---
in to see pt.Aware of pt with pain and orders to admit pt at this time.
--- NOTE | 2019-12-30 04:56 | NUR ---
Pt refusing for nurse to take dressing off of left lower leg at this time.Pt has clear lung sounds and bowel sounds are also present.Pt will become upset and cry.Emotional support given at this time.
--- NOTE | 2019-12-30 05:00 | NUR ---
Potassium rate turned down to 25 cc an hour per pt request at this time.
--- NOTE | 2019-12-30 06:10 | NUR ---
aware of fluid increase at this time and is ok with pt not tolerating fluids at 250 an hour.
--- NOTE | 2019-12-30 06:45 | NUR ---
Pt had small bm.Pt states pain is not any better at this time. Pt starts crying that she wants to go to room at this time.Pt aware that no room has been given yet at this time.
--- NOTE | 2019-12-30 07:08 | NUR ---
Transfer of care to Janette pennington.
--- NOTE | 2019-12-30 08:30 | NUR ---
A 69, admitted to , under the services of Dr. SAL GIANG,LISSETT Tesfaye with a diagnosis of ENTERITIS, VOMITING, HYPOKALEMIA. Chief complaint is PAIN. NAUSEA. Patient arrived via bed from ER. Monitor applied. Initial assessment completed. Vital signs taken and recorded. DR. SAL GIANG,LISSETT Tesfaye notified of admission to the unit. Orders received. See assessment for past medical history, medications and allergies. Patient and/or family oriented to unit. [facility] Clothing/patient valuable form completed. XAVIER LUCERO
--- NOTE | 2019-12-30 08:45 | NUR ---
PT COMPLAINS OF LEFT LEG PAIN AND BACK PAIN. PT REFUSES HAVING HER LEFT LEG UNWRAPPED, SO NO WOUND PICTURES OR MEAUSREMENTS TAKEN. CALL LIGHT WITHIN REACH, WILL CONTINUE TO MONITOR
--- NOTE | 2019-12-30 09:20 | NUR ---
DR HUANG ON THE FLOOR AND MADE AWARE OF NEW ADMISSION. IN TO SEE PATIENT AT THIS TIME
--- NOTE | 2019-12-30 10:58 | NUR ---
IV started right hand with #22 protective cath after 1 attempts. Site prepped with Chloroprep. Sterile dressing applied. Patient tolerated procedure well. IV infusing at 60 cc/hr. XAVIER LUCERO
--- NOTE | 2019-12-30 15:37 | NUR ---
PHYSICAL THERAPY Physical Therapy evaluation completed on 5E with full evaluation to follow. Low complexity PT evaluation per chart review and evaluation, [id number]. Recommend physical therapy per plan of care and Home Health upon discharge. Thank you for this referral. Janette Posada,PT,DPT
--- NOTE | 2019-12-30 16:57 | NUR ---
PT SITTING ON SIDE OF BED LOOKING OVER MENU. SHE STATES THAT SHE STILL IS IN PAIN, BUT IT IS NOT BAD EARLIER. WILL CONTINUE TO MONITOR
--- NOTE | 2019-12-30 20:30 | NUR ---
CALLED DR. COSTELLO AND NOTIFIED HER OF PATIENT C/O PAIN LEFT FOOT AND NOT DUE FOR PAIN MED UNTIL 0000. ORDER RECEIVED.
--- NOTE | 2019-12-30 20:44 | NUR ---
TYLENOL GIVEN PER ORDER FOR LEFT FOOT PAIN RATED 9/10 PER PT.
--- NOTE | 2019-12-30 21:40 | NUR ---
TYLENOL NOT EFFECTIVE FOR LEFT FOOT/LEG PAIN PER PT.
--- NOTE | 2019-12-30 22:48 | NUR ---
PT. CRYING UPSET WANTING MORE PAIN MEDICATION SAID TYLENOL DID NOT WORK, "I BUY THAT FOR HOME AND IT'S JUST LIKE THROWING MONEY AWAY. IT DOESN'T WORK. YOU NEED TO CALL THE DOCTOR BACK AND GET SOMETHING ELSE OF PAIN." EXPLAINED THAT I'VE TALKED WITH THE DOCTOR ONCE AND SHE IS NOT ORDERING ANY OTHER PAIN MEDICATION. PATIENT STATED "YOU TELL HER WHEN YOU CALL HER THAT SHE'LL HAVE TO COME IN HERE AND HOLD MY HAND WHEN I CAN'T SLEEP ALL NIGHT." CALLED DR. COSTELLO AND NO NEW ORDERS RECEIVED AND SHE STATED "DR. HUANG CAN HANDLE THIS IN THE MORNING."
--- NOTE | 2019-12-30 23:41 | NUR ---
24 HR chart check completed.
[2019-12-31] VITALS: BP 155/76
--- NOTE | 2019-12-31 01:18 | NUR ---
PATIENT SITTING ON BED RUBBING RIGHT LEG COMPLAINING SHE NEEDS PAIN MEDICATION. AGAIN NOTIFIED PT. THAT, THE DOCTOR WAS NOT GOING TO ORDER ANYTHING ELSE FOR PAIN. ASKED PATIENT HOW SHE DEALS WITH THIS PAIN AT HOME AND SHE SAID SHE USUALLY RUBS THEM AND TAKES TYLENOL. SAID TO PATIENT BUT YOU SAID TYLENOL DOESN'T WORK FOR YOU AND SHE SAID IT DOES IF I TAKE 3-4 AT A TIME. PATIENT MADE AWARE THAT SHE CAN HAVE TYLENOL AROUND 0240 AND PATIENT WAS OKAY WITH THAT.
--- NOTE | 2019-12-31 03:01 | NUR ---
TYLENOL GIVEN PER ORDER FOR LEG PAIN PER PT. "HURTS SO BAD". SEE MAR.
--- NOTE | 2019-12-31 04:00 | NUR ---
RESTING BUT DOES SHIFT HER LEGS ALOT. TYLENOL NOT THAT EFFECTIVE FOR PAIN BUT PATIENT IS NOT ASKING FOR MORE PAIN MED AT THIS TIME.
--- NOTE | 2019-12-31 06:37 | NUR ---
DANO RODARTE [id number] Please refer to the physician's history and physical for past medical history, comorbid conditions, and allergies. Diagnosis: ENTERITIS, VOMITING, HYPOKALEMIA Simon Score: 20,LOW OR NO RISK WOUND DESCRIPTIONS: Wound Number: 1 Location of the wound: left lateral proximal aspect of ankle Type of wound: surigcal Thickness: Full Size: 11.2cm x 0.4cm x <0.1cm Tunneling: none Undermining: none Sinus Tract: none Presence of Exudate: none Amount: None Color: Brown, red Odor: None Periwound Skin Appearance: Normal Wound edges: approximated with 19 sutures Pain (associated with wound): tender at time of assessment How does patient state this happened? pt states she is unsure when this but this she had surgery one week ago Wound Number: 2 Location of the wound: left lateral medial aspect of ankle Type of wound: surigcal Thickness: Full Size: 0.4cm x 0.6cm x <0.1cm Tunneling: none Undermining: none Sinus Tract: none Presence of Exudate: none Amount: None Color: Brown, red, yellow Odor: None Periwound Skin Appearance: Normal Wound edges: approximated Pain (associated with wound): tender at time of assessment How does patient state this happened? pt states she is unsure when this but this she had surgery one week ago Wound Number: 3 Location of the wound: left lateral distal aspect of ankle Type of wound: surigcal Thickness: Full Size: 0.6cm x 0.8cm x <0.1cm Tunneling: none Undermining: none Sinus Tract: none Presence of Exudate: none Amount: None Color: Brown, red Odor: None Periwound Skin Appearance: Normal Wound edges: approximated with 2 sutures Pain (associated with wound): tender at time of assessment How does patient state this happened? pt states she is unsure when this but this she had surgery one week ago Wound Number: 4 Location of the wound: left heel Type of wound: unstageable Thickness: Full Size: 2.2cm x 2.7cm x <0.1cm Tunneling: none Undermining: none Sinus Tract: none Presence of Exudate: none Amount: None Color: Black Odor: None Periwound Skin Appearance: Normal Wound edges: closed Pain (associated with wound): tender at time of assessment How does patient state this happened? pt states she is unsure when this but this she had surgery one week ago Wound Number: 5 Location of the wound: left medial aspect of ankle proximal Type of wound: surigcal Thickness: Full Size: 3.0cm x 1.5cm x <0.1cm Tunneling: none Undermining: none Sinus Tract: none Presence of Exudate: none Amount: None Color: Brown, red Odor: None Periwound Skin Appearance: Normal Wound edges: approximated with 3 sutures Pain (associated with wound): tender at time of assessment How does patient state this happened? pt states she is unsure when this but this she had surgery one week ago Wound Number: 6 Location of the wound: left medial aspect of ankle distal Type of wound: surigcal Thickness: Full Size: 0.9cm x 1.0cm x <0.1cm Tunneling: none Undermining: none Sinus Tract: none Presence of Exudate: none Amount: None Color: Brown, red Odor: None Periwound Skin Appearance: Normal Wound edges: approximated with 2 sutures Pain (associated with wound): tender at time of assessment How does patient state this happened? pt states she is unsure when this but this she had surgery one week ago Wound Number: 7 Location of the wound: medial aspect of mid foot Type of wound: unstageable Thickness: Full Size: 0.6cm x 0.6cm x <0.1cm Tunneling: none Undermining: none Sinus Tract: none Presence of Exudate: none Amount: None Color: Brown, red Odor: None Periwound Skin Appearance: Normal Wound edges: approximated with 19 sutures Pain (associated with wound): tender at time of assessment How does patient state this happened? pt states she is unsure when this but this she had surgery one week ago Wound Number: 8 Location of the wound: top of left foot Type of wound: unstageable Thickness: Full Size: 1.1cm x 0.8cm x <0.1cm Tunneling: none Undermining: none Sinus Tract: none Presence of Exudate: none Amount: None Color: Brown, red Odor: None Periwound Skin Appearance: Normal Wound edges: approximated Pain (associated with wound): tender at time of assessment How does patient state this happened? pt states she is unsure when this but this she had surgery one week ago Wound Number: 9 Location of the wound: left summers proximal Thickness: Partial Size: 0.2cm x 0.3cm x 0.1cm Tunneling: none Undermining: none Sinus Tract: none Presence of Exudate: none Amount: None Color: Red Odor: None Periwound Skin Appearance: Normal Wound edges: approximated Pain (associated with wound): tender at time of assessment How does patient state this happened? pt states she is unsure when this but this she had surgery one week ago Wound Number: 10 Location of the wound: left summers distal Thickness: Partial Size: 0.5cm x 0.7cm x 0.1cm Tunneling: none Undermining: none Sinus Tract: none Presence of Exudate: none Amount: None Color: Red Odor: None Periwound Skin Appearance: Normal Wound edges: approximated Pain (associated with wound): tender at time of assessment How does patient state this happened? pt states she is unsure when this but this she had surgery one week ago Surface the patient is resting on: Isoflex SKIN PREVENTION RECOMMENDATION: 1. Pressure redistribution support surface as appropriate 2. Elevate heels 3. Remove boots/TEDS every shift and reapply 4. Head of bed 30 degrees as tolerated 5. Assess nutrition and hydration 6. Manage moisture 7. Avoid the use of containment devices while in bed 8. Use absorptive products on surfaces limit layers of linens on bed 9. Turn and reposition every 1-2 hours in bed and every 1 hour in chair as tolerated 10. Weight shifts every 15 minutes while up in chair 11. Offloading with pillows or device to keep heels elevated off bed 12. Monitor skin at least every shift 13. Inspect under medical devices twice a day WOUND TREATMENT RECOMMENDATIONS: Consult podiatry since they peformed surgery on December 09 and hasn't had any follow up treatment with them since surgery Partial thickness guidelines: Cleanse left summers proximal and left summers distal with nss and apply sureprep around the wound hydrogel to wound bed and cover with optifoam gentle every 2 days and prn for soiling. Await wound care orders to all others areas to left foot and ankle since podiatry did surgery. Heel raiser pro boots to bilateral feet while in bed
[2019-12-31 06:54] LABS: BUN 14 mg/dl (7-24); CHLORIDE 106 mmol/L (98-107); CREATININE 0.74 mg/dL (0.55-1.02); POTASSIUM 3.5 mmol/L (3.5-5.1); SODIUM 139 mmol/L (136-145)
--- NOTE | 2019-12-31 06:55 | NUR ---
PATIENT WAS GIVEN SCHEDULED TORADOL AROUND [phone]. PATIENT CALLED OUT AND WANTED TO KNOW WHEN SHE CAN HAVE SOMETHING FOR PAIN. WENT BACK AND EXPLAINED TO PATIENT SHE JUST HAD PAIN MED AND WHEN THE NEXT PAIN MEDICATION WAS DUE AFTER HAVING AWAKEND HER. PATIENT VOICED UNDERSTANDING.
--- NOTE | 2019-12-31 07:09 | NUR ---
DSD appilied to left lower extremity pending physician orders. Patient tolerate dressing changes without diffcuilty. Call light within reach and bed in low position. Patient refused photographs at this time.
[2019-12-31 08:00] VITALS: BP 144/60
--- NOTE | 2019-12-31 08:15 | NUR ---
Data Warehousing Architect in to talk to patient. Patient states lives at home with her son. There are 0 steps in the home. Physician: Dr. Flakito Adams Pharmacy: [facility] Home health services: [facility] Patient's level of ADLs: MINIMAL ASSIST Patient has working utilities: yes DME: O2 @ 2L [facility] [facility] prn, nebulizer, O2 supplier [employer], walker Follow-up physician's appointment after d/c: she prefers to make her own follow up appt after discharge Does patient want to access PORTAL?: no Discharge plan discussed with patient. She lives at home with her son. She needs minimal assistance with ADLs and ambulates with a walker. Asked if she received her wheelchair or BSC from a previous admission. She states no. Asked if she still needed the BSC and she stated no that she walks to the bathroom. Asked about the wheelchair. She states she has not received a wheelchair and still would like to have it. Explained CM will reach out to [facility]. She verbalized an understanding. Discussed her currently having [facility] and she states she doesn't need them. When medically stable she will be discharged to home. She states her ex- will provide transportation on discharge. NAA ROD
--- NOTE | 2019-12-31 09:03 | NUR ---
Spoke to Fannie Driscoll from [facility] regarding wheelchair for patient from November. Fannie Driscoll explained patient would not return her calls and then the patient was back in the hospital again and did not reach out to [facility]. Explained patient is in the hospital currently. Fannie Driscoll states to have patient call [facility] when patient is discharged. Auth for the wheelchair will have to be restarted as it was authed in November.
--- NOTE | 2019-12-31 09:10 | NUR ---
Discussed with patient about calling [facility] once she is discharged to speak to them about her wheelchair. She verbalized an understanding. Sticky note placed with the name of the company and phone number on her cell phone. She asked if she was being discharged today. Explained CM has not seen Dr. Adams yet today. She verbalized an understanding.
[2019-12-31] MEDS ORDERED: CIPRO500 MG PO (09:56)
--- NOTE | 2019-12-31 11:08 | NUR ---
Discharge instructions reviewed with patient/family. Patient receptive and verbalizes understanding. Follow-up care arranged. Written instructions given to patient/family. MARGARET GARCIA
== END 2019-12-31 11:08 | disposition home or self-care (01) | DRG 425 ==
LOC: ED 00:21 → 5E 04:51 → EDHOLD 04:51 → 5E 08:17
PROVIDERS: Emergency Medicine; ADMIT Internal Medicine
DX: E87.6 Hypokalemia (principal); A08.4 Viral intestinal infection, unspecified; J44.9 Chronic obstructive pulmonary disease, unspecified; N39.0 Urinary tract infection, site not specified; B95.1 Streptococcus, group B, as the cause of diseases classified elsewhere; I10 Essential (primary) hypertension; I25.10 Atherosclerotic heart disease of native coronary artery without angina pectoris; G89.4 Chronic pain syndrome; E11.9 Type 2 diabetes mellitus without complications; F33.1 Major depressive disorder, recurrent, moderate; G30.0 Alzheimer's disease with early onset; K21.9 Gastro-esophageal reflux disease without esophagitis; M15.0 Primary generalized (osteo)arthritis; G47.33 Obstructive sleep apnea (adult) (pediatric); M51.36 Other intervertebral disc degeneration, lumbar region; E89.0 Postprocedural hypothyroidism; F41.0 Panic disorder [episodic paroxysmal anxiety]; F02.80 Dementia in other diseases classified elsewhere, unspecified severity, without behavioral disturbance, psychotic disturbance, mood disturbance, and anxiety; F17.210 Nicotine dependence, cigarettes, uncomplicated; M48.061 Spinal stenosis, lumbar region without neurogenic claudication; I48.21 Permanent atrial fibrillation; M47.816 Spondylosis without myelopathy or radiculopathy, lumbar region; Z88.0 Allergy status to penicillin; Z88.6 Allergy status to analgesic agent; Z87.01 Personal history of pneumonia (recurrent); Z87.440 Personal history of urinary (tract) infections; Z90.49 Acquired absence of other specified parts of digestive tract; Z90.710 Acquired absence of both cervix and uterus; Z83.3 Family history of diabetes mellitus; Z82.49 Family history of ischemic heart disease and other diseases of the circulatory system

== ENCOUNTER → 2022-05-17 | Outpatient (CLI) | payer OTHER ==
[~2022-05-17] MED LIST changes: +INDOMETHACIN ER75 M1 PO; +INDOMETHACIN50 MG PO; +K-TAB20 MEQ PO; +METFORMIN HYDR500 MG PO; +OMEPRAZOLE MAGN20 MG PO; +VITAMIN D350 MCG PO
[2022-05-17 15:32] LABS: BASO # 0.1 10*3/uL (0.0-0.1); BASO % 0.4 % (0.0-1.0); EOS # 0.3 10*3/uL (0.0-0.4); EOS % 1.5 % (1.0-4.0); HEMATOCRIT 41.5 % (37.0-47.0); LYMPH # 3.7 10*3/uL (1.3-4.4); LYMPH % 21.6 % (27.0-41.0); MEAN CELL VOLUME 85.9 fl (81.0-99.0); MEAN CORPUSCULAR HGB 26.1 pg (27.0-31.0); MEAN CORPUSCULAR HGB CONC 30.4 g/dl (33.0-37.0); MONO # 0.9 10*3/uL (0.1-1.0); MONO % 5.4 % (3.0-9.0); NEUT # 12.1 10*3/uL (2.3-7.9); NEUT % 70.5 % (47.0-73.0); PLATELET COUNT AUTOMATED 453 10*3/uL (130-400); RED BLOOD COUNT 4.83 10*6/uL (4.10-5.10); RED CELL DISTRI WIDTH 17.8 % (0-14.5); WHITE BLOOD COUNT 17.1 10*3/uL (4.8-10.8)
[2022-05-17 15:56] LABS: POTASSIUM 3.3 mmol/L (3.5-5.1)
[2022-05-17 16:08] LABS: CREATININE 1.16 mg/dL (0.55-1.02); FREE T4 0.9 ng/dl (0.76-1.46); TOTAL PROTEIN 7.8 gm/dL (6.4-8.2)
[2022-05-17 16:26] LABS: THYROID STIM HORMONE (HS) 3.17 uIU/ml (0.358-4.75); VITAMIN D, 25-HYDROXY 48.1 ng/mL (30-100)
== END ==
LOC: LAB 15:15
PROVIDERS: ATTEND Internal Medicine
DX: Z13.0 Encounter for screening for diseases of the blood and blood-forming organs and certain disorders involving the immune mechanism (principal); Z13.1 Encounter for screening for diabetes mellitus; Z13.21 Encounter for screening for nutritional disorder; Z13.220 Encounter for screening for lipoid disorders; Z13.228 Encounter for screening for other metabolic disorders; Z13.29 Encounter for screening for other suspected endocrine disorder; Z23 Encounter for immunization; Z13.6 Encounter for screening for cardiovascular disorders; Z13.89 Encounter for screening for other disorder; Z13.9 Encounter for screening, unspecified; E11.65 Type 2 diabetes mellitus with hyperglycemia; E11.9 Type 2 diabetes mellitus without complications; E78.2 Mixed hyperlipidemia; E55.9 Vitamin D deficiency, unspecified

== ENCOUNTER → 2022-06-29 | Outpatient (CLI) | payer OTHER | END | disposition home or self-care (01) | LOC: MAMMO 06-15 14:00 | PROVIDERS: ATTEND Internal Medicine | DX: Z12.31 Encounter for screening mammogram for malignant neoplasm of breast (principal) ==

== ENCOUNTER 2023-07-07 15:07 | Inpatient (IN) | payer OTHER ==
[~2023-07-07] VITALS: Ht 167.6 cm; Wt 86.7 kg
[2023-07-07] MEDS ORDERED: ASPIR-TRIN325 MG PO (15:10)
[2023-07-07] MEDS ORDERED: PANTOPRAZOLE SO40 MG PO (15:16)
[2023-07-07 15:33] VITALS: BP 116/51
[2023-07-07 16:26] LABS: BASO # 0.1 10*3/uL (0.0-0.1); BASO % 0.6 % (0.0-1.0); EOS % 0.2 % (1.0-4.0); HEMATOCRIT 38.8 % (37.0-47.0); LYMPH # 1.6 10*3/uL (1.3-4.4); LYMPH % 17.5 % (27.0-41.0); MEAN CELL VOLUME 80.3 fl (81.0-99.0); MEAN CORPUSCULAR HGB 24.2 pg (27.0-31.0); MEAN CORPUSCULAR HGB CONC 30.2 g/dl (33.0-37.0); MEAN PLATELET VOLUME 9.8 fl (9.6-12.3); MONO % 11.2 % (3.0-9.0); NEUT # 6.2 10*3/uL (2.3-7.9); NEUT % 69.4 % (47.0-73.0); PLATELET COUNT AUTOMATED 352 10*3/uL (130-400); RED BLOOD COUNT 4.83 10*6/uL (4.10-5.10); RED CELL DISTRI WIDTH 17.6 % (0-14.5)
[2023-07-07 16:39] LABS: ALKALINE PHOSPHATASE 98 U/L (46-116); BUN 13 mg/dl (9-23); CHLORIDE 97 mmol/L (98-107); POTASSIUM 3.7 mmol/L (3.4-5.1); SGPT/ALT 62 U/L (5-49); TOTAL PROTEIN 7.3 gm/dL (6.0-8.0)
[2023-07-07 19:49] VITALS: BP 117/56
[2023-07-07 20:10] VITALS: BP 101/68
[2023-07-08] VITALS: BP 106/53
[2023-07-08 07:10] LABS: BASO % 0.3 % (0.0-1.0); HEMATOCRIT 39.7 % (37.0-47.0); LYMPH # 1.1 10*3/uL (1.3-4.4); MEAN CELL VOLUME 81.9 fl (81.0-99.0); MEAN CORPUSCULAR HGB 23.9 pg (27.0-31.0); MEAN CORPUSCULAR HGB CONC 29.2 g/dl (33.0-37.0); MONO # 0.3 10*3/uL (0.1-1.0); MONO % 4.4 % (3.0-9.0); NEUT % 77.1 % (47.0-73.0); PLATELET COUNT AUTOMATED 340 10*3/uL (130-400); RED BLOOD COUNT 4.85 10*6/uL (4.10-5.10); RED CELL DISTRI WIDTH 17.7 % (0-14.5); WHITE BLOOD COUNT 6.5 10*3/uL (4.8-10.8)
[2023-07-08 07:29] LABS: BUN 14 mg/dl (9-23); CHLORIDE 100 mmol/L (98-107); POTASSIUM 4.6 mmol/L (3.4-5.1)
[2023-07-08 08:00] VITALS: BP 110/64
[2023-07-08 12:00] VITALS: BP 104/64
[2023-07-08 16:00] VITALS: BP 101/62
[2023-07-08 20:00] VITALS: BP 124/70
[2023-07-09] VITALS: BP 142/56
[2023-07-09 06:15] LABS: BASO % 0.2 % (0.0-1.0); HEMATOCRIT 39.9 % (37.0-47.0); LYMPH # 1.5 10*3/uL (1.3-4.4); LYMPH % 14.3 % (27.0-41.0); MEAN CELL VOLUME 82.4 fl (81.0-99.0); MEAN CORPUSCULAR HGB 24.2 pg (27.0-31.0); MEAN CORPUSCULAR HGB CONC 29.3 g/dl (33.0-37.0); MEAN PLATELET VOLUME 10.6 fl (9.6-12.3); MONO # 0.6 10*3/uL (0.1-1.0); NEUT # 8.4 10*3/uL (2.3-7.9); NEUT % 78.5 % (47.0-73.0); PLATELET COUNT AUTOMATED 378 10*3/uL (130-400); RED BLOOD COUNT 4.84 10*6/uL (4.10-5.10); RED CELL DISTRI WIDTH 17.6 % (0-14.5); WHITE BLOOD COUNT 10.7 10*3/uL (4.8-10.8)
[2023-07-09 06:18] LABS: ALKALINE PHOSPHATASE 107 U/L (46-116); BUN 18 mg/dl (9-23); CHLORIDE 100 mmol/L (98-107); LDH 273 U/L (120-246); POTASSIUM 4.6 mmol/L (3.4-5.1); SGPT/ALT 39 U/L (5-49)
[2023-07-09 08:00] VITALS: BP 141/64
[2023-07-09 12:00] VITALS: BP 143/54
[2023-07-09 16:00] VITALS: BP 152/93
[2023-07-09 20:00] VITALS: BP 153/73
[2023-07-10] VITALS: BP 120/50; BP 148/71
[2023-07-10 06:42] LABS: BASO % 0.1 % (0.0-1.0); HEMATOCRIT 40.6 % (37.0-47.0); LYMPH # 1.6 10*3/uL (1.3-4.4); LYMPH % 14.1 % (27.0-41.0); MEAN CELL VOLUME 81.5 fl (81.0-99.0); MEAN CORPUSCULAR HGB 24.1 pg (27.0-31.0); MEAN CORPUSCULAR HGB CONC 29.6 g/dl (33.0-37.0); MEAN PLATELET VOLUME 10.5 fl (9.6-12.3); MONO # 0.4 10*3/uL (0.1-1.0); MONO % 3.1 % (3.0-9.0); NEUT # 9.4 10*3/uL (2.3-7.9); NEUT % 81.7 % (47.0-73.0); PLATELET COUNT AUTOMATED 415 10*3/uL (130-400); RED BLOOD COUNT 4.98 10*6/uL (4.10-5.10); RED CELL DISTRI WIDTH 17.5 % (0-14.5); WHITE BLOOD COUNT 11.5 10*3/uL (4.8-10.8)
[2023-07-10 06:52] LABS: ALKALINE PHOSPHATASE 110 U/L (46-116); BUN 21 mg/dl (9-23); CHLORIDE 95 mmol/L (98-107); LDH 225 U/L (120-246); POTASSIUM 4.4 mmol/L (3.4-5.1); SGPT/ALT 33 U/L (5-49); TOTAL PROTEIN 7.6 gm/dL (6.0-8.0)
[2023-07-10 08:00] VITALS: BP 156/72
[2023-07-10 12:00] VITALS: BP 150/76
[2023-07-10 16:00] VITALS: BP 148/74
[2023-07-10 20:00] VITALS: BP 153/81
[2023-07-11] VITALS: BP 155/81
[2023-07-11 07:16] LABS: ALKALINE PHOSPHATASE 114 U/L (46-116); BUN 26 mg/dl (9-23); CHLORIDE 94 mmol/L (98-107); LDH 200 U/L (120-246); POTASSIUM 3.7 mmol/L (3.4-5.1); SGPT/ALT 42 U/L (5-49); TOTAL PROTEIN 7.5 gm/dL (6.0-8.0)
[2023-07-11 08:00] VITALS: BP 160/80
== END 2023-07-11 11:45 | disposition home or self-care (01) | DRG 137 ==
LOC: ED 15:07 → EDHOLD 18:13 → 4E 18:13
PROVIDERS: Internal Medicine; Internal Medicine Critical Care Medicine; ADMIT Internal Medicine; ATTEND Internal Medicine
PROC: XW033E5 Introduction of Remdesivir Anti-infective into Peripheral Vein, Percutaneous Approach, New Technology Group 5 (ICD-10-PCS; principal; 2023-07-07)
DX: U07.1 COVID-19 (principal); J96.01 Acute respiratory failure with hypoxia; J12.82 Pneumonia due to coronavirus disease 2019; E44.1 Mild protein-calorie malnutrition; R62.7 Adult failure to thrive; E87.1 Hypo-osmolality and hyponatremia; F33.1 Major depressive disorder, recurrent, moderate; G89.4 Chronic pain syndrome; E11.42 Type 2 diabetes mellitus with diabetic polyneuropathy; F41.1 Generalized anxiety disorder; E03.9 Hypothyroidism, unspecified; M47.896 Other spondylosis, lumbar region; K21.00 Gastro-esophageal reflux disease with esophagitis, without bleeding; E11.65 Type 2 diabetes mellitus with hyperglycemia; R74.01 Elevation of levels of liver transaminase levels; E66.9 Obesity, unspecified; J44.1 Chronic obstructive pulmonary disease with (acute) exacerbation; I50.9 Heart failure, unspecified; J44.0 Chronic obstructive pulmonary disease with (acute) lower respiratory infection; T38.0X5A Adverse effect of glucocorticoids and synthetic analogues, initial encounter; I11.0 Hypertensive heart disease with heart failure; F03.90 Unspecified dementia, unspecified severity, without behavioral disturbance, psychotic disturbance, mood disturbance, and anxiety; Y92.89 Other specified places as the place of occurrence of the external cause; Z68.34 Body mass index [BMI] 34.0-34.9, adult; Z88.0 Allergy status to penicillin; Z88.8 Allergy status to other drugs, medicaments and biological substances

== ENCOUNTER → 2024-09-08 | Outpatient (CLI) | payer OTHER ==
[~2024-09-08] MED LIST changes: +FUROSEMIDE40 MG PO; +HYDROCODONE-AC1 EACH PO; +JARDIANCE10 MG PO; +OYSTER SHELL 51 EAC5 PO; +SLOW-MAG71.5 MG PO; +TRULICITY0.75 MG/0. SC
== END | disposition home or self-care (01) ==
LOC: MAMMO 12:21
PROVIDERS: ATTEND Family Medicine
DX: Z12.31 Encounter for screening mammogram for malignant neoplasm of breast (principal); Z12.2 Encounter for screening for malignant neoplasm of respiratory organs; J43.2 Centrilobular emphysema; R91.8 Other nonspecific abnormal finding of lung field; I25.10 Atherosclerotic heart disease of native coronary artery without angina pectoris; F17.210 Nicotine dependence, cigarettes, uncomplicated; N63.20 Unspecified lump in the left breast, unspecified quadrant; N63.10 Unspecified lump in the right breast, unspecified quadrant; M81.0 Age-related osteoporosis without current pathological fracture; Z90.49 Acquired absence of other specified parts of digestive tract

== ENCOUNTER → 2024-10-28 | Outpatient (CLI) | payer OTHER ==
[2024-10-28 10:36] LABS: BASO # 0.1 10*3/uL (0.0-0.1); BASO % 0.4 % (0.0-1.0); EOS # 0.3 10*3/uL (0.0-0.4); EOS % 1.8 % (1.0-4.0); HEMATOCRIT 43.3 % (37.0-47.0); MEAN CELL VOLUME 82.3 fl (81.0-99.0); MEAN CORPUSCULAR HGB 23.8 pg (27.0-31.0); MEAN CORPUSCULAR HGB CONC 28.9 g/dl (33.0-37.0); MEAN PLATELET VOLUME 10.2 fl (9.6-12.3); MONO # 0.9 10*3/uL (0.1-1.0); MONO % 5.4 % (3.0-9.0); NEUT # 10.4 10*3/uL (2.3-7.9); NEUT % 65.2 % (47.0-73.0); PLATELET COUNT AUTOMATED 394 10*3/uL (130-400); RED BLOOD COUNT 5.26 10*6/uL (4.10-5.10); RED CELL DISTRI WIDTH 19.3 % (0-14.5)
[2024-10-28 11:22] LABS: POTASSIUM 3.2 mmol/L (3.4-5.1); TOTAL PROTEIN 6.9 gm/dL (6.0-8.0)
== END | disposition home or self-care (01) ==
LOC: LAB 10:17
PROVIDERS: Student in an Organized Health Care Education/Training Program; ATTEND Family Medicine
DX: E11.9 Type 2 diabetes mellitus without complications (principal); R74.8 Abnormal levels of other serum enzymes

== ENCOUNTER 2025-02-11 18:34 | Emergency (ER) | payer OTHER ==
[~2025-02-11] VITALS: Wt 84.4 kg
[2025-02-11 19:05] LABS: MEAN CELL VOLUME 77.9 fl (81.0-99.0); MEAN CORPUSCULAR HGB 23.2 pg (27.0-31.0); MEAN PLATELET VOLUME 10.4 fl (9.6-12.3); NUCLEATED RED BLOOD CELL 0.0 % (0.0-0.0); NUCLEATED RED BLOOD CELL 0.0 10*3/uL (0.0-0.0); PLATELET COUNT AUTOMATED 371 10*3/uL (130-400); RED CELL DISTRI WIDTH 18.0 % (0-14.5)
[2025-02-11 19:06] LABS: MANUAL DIFF REFLEX YES
[2025-02-11 19:22] LABS: BUN 11.0 mg/dl (9-23)
[2025-02-11 19:31] LABS: PLATELET SUFFICIENCY NORMAL (NORMAL)
[2025-02-11] MEDS ORDERED: POTASSIUM CHLORIDE 20 MEQ TAB PO ONE (19:55)
[2025-02-11 20:52] LABS: URINE AMPHETAMINES Negative (1000ng/ml); URINE BARBITURATES Negative (200ng/ml); URINE BENZODIAZEPINES Negative (200ng/ml); URINE CANNABINOIDS (THC) Negative (50ng/ml); URINE COCAINE Negative (300ng/ml); URINE METHADONE Negative (300ng/ml); URINE OPIATES Negative (300ng/ml); URINE PHENCYCLIDINE Negative (25ng/ml)
[2025-02-11 20:54] LABS: BILIRUBIN Negative (Negative); BLOOD Negative (Negative); CLARITY Clear (Clear); COLOR Yellow (Yellow); KETONE Negative (Negative); LEUKO ESTERASE Negative (Negative); NITRITE Negative (Negative); PH 6.0 (4.5-8.0); SPECIFIC GRAVITY >= 1.030 (1.001-1.030); UROBILINOGEN 1.0 E.U./dl (0.0-1.0)
[2025-02-11 21:02] LABS: BACTERIA TRACE; FINE GRANULAR CAST 0-2; MUCOUS 1+; RBC 0-2 rbc/hpf (0-2); WBC 0-2 wbc/hpf (0-5)
[2025-02-11] MEDS ORDERED: PREDNISONE20 M1 PO (21:44)
[2025-02-11 22:33] VITALS: BP 147/70
== END 2025-02-11 22:46 | disposition home or self-care (01) ==
LOC: ED 18:34
PROVIDERS: Internal Medicine
DX: M25.461 Effusion, right knee (principal); E83.51 Hypocalcemia; E87.6 Hypokalemia; D72.829 Elevated white blood cell count, unspecified; I12.9 Hypertensive chronic kidney disease with stage 1 through stage 4 chronic kidney disease, or unspecified chronic kidney disease; E11.22 Type 2 diabetes mellitus with diabetic chronic kidney disease; N18.32 Chronic kidney disease, stage 3b; J44.9 Chronic obstructive pulmonary disease, unspecified; K21.9 Gastro-esophageal reflux disease without esophagitis; F32.A Depression, unspecified; F41.9 Anxiety disorder, unspecified; Z79.899 Other long term (current) drug therapy; Z88.0 Allergy status to penicillin; Z90.49 Acquired absence of other specified parts of digestive tract; Z90.710 Acquired absence of both cervix and uterus; Z90.89 Acquired absence of other organs; Z98.890 Other specified postprocedural states